=== PATIENT | female | born 1945 | race Caucasian/White ===

== ENCOUNTER 2023-07-31 10:04 | Outpatient (AMB) | payer BC, SELFPAY ==
[2023-07-31 10:26] VITALS: BP 118/64; PULSE 92; O2SAT 96; BMI 33.1
--- NOTE | 2023-07-31 10:26 | A.OFFVIS_ITS ---
Intake Vital Signs 07/31/23 10:26 Height 5 ft 5 in Weight 199 lb BMI 33.1 BP 118/64 Blood Pressure Location Rt brachial Position Sitting Pulse 92 Pulse Source Pulse Oximeter Pulse Oximetry (%) 96 Oxygen Delivery Method Room Air Intake Visit Reasons: mild intermittent asthma Online Merchandising Specialist Required: No Adzing And Boring Machine Operator: Adzing And Boring Machine Operator offered & declined Accompanied by: Spouse Allergies codeine Allergy (Severe, Verified 07/31/23 10:33) hives latex Allergy (Severe, Uncoded 07/31/23 10:33) hives Poultry Allergy (Severe, Uncoded 07/31/23 10:33) hives Medication List - Last Reconciled 07/31/23 by Yessica Oliveros LPN albuterol sulfate 90 mcg/actuation 2 puffs inhalation Q4-6H PRN amlodipine 2.5 mg PO DAILY atorvastatin 10 mg PO DAILY famotidine 40 mg PO DAILY PRN melatonin 10 mg PO BEDTIME PRN meloxicam 15 mg PO DAILY PRN metoprolol succinate ER 25 mg PO QDAY omeprazole 20 mg PO DAILY PRN zinc 22 mg PO DAILY HPI mild intermittent asthma HPI Details Cesia is a pleasant 77 year old female, former smoker with approximate 10 pack year history, quit 50+ years ago with underlying asthma, tachycardia maintained on metoprolol, under the care of cardiology, GERD, and history of CVA maintained on ASA. She also reports GARETH on CPAP, using a fullface mask and receives supplies through Sleep medicine services in [place]. At baseline, she is poorly controlled on albuterol neb/MDI but reports occurrences of thrush and has not used any other respiratory medication. She reports dyspnea with moderate exertion and intermittent coughing spells with clear sputum as well as chest tightness and wheezing. She notes the cough is worse at night. She also states a history of asbestos exposure with abnormal CXR. She denies any further imaging. She did have a PFT and a methacholine challenge confirming asthma in the past. She believes this was performed at [facility]. She reports son with asthma otherwise no other pertinent family history. [facility] Social History (Updated 07/31/23 @ 10:34 by Yessica Oliveros LPN) Patient Tobacco Use Status: Former Tobacco user Tobacco use type: Cigarette Cigarette Packs Per Day: 1 Years Smoked: 7 Review of Systems Const Denies chills, Denies excessive sweating, Denies fever(s), Denies headache(s) and Denies night sweats Eyes Denies dry eyes, Denies irritation and Denies itchy eyes ENT Reports Normal hearing present, Denies headache(s), Denies nasal congestion, Denies nasal discharge, Denies post nasal drip and Denies sore throat Card Denies chest pain, Denies chest pain at rest, Denies chest pain with activity, Denies claudication, Denies leg edema, Denies orthopnea and Denies paroxysmal nocturnal dyspnea Resp Denies chest congestion, Denies excessive phlegm production, Denies pain on inspiration, Denies pain with cough and Denies stridor Musc Denies myalgias Neuro Reports Normal hearing present and Denies headache(s) Endo Denies excessive sweating Juan Manuel/Lymph Denies lymphadenopathy Aller/Immun Denies itchy eyes and Denies seasonal rhinorrhea Physical Exam Vital Signs: Last Vital Signs Pulse 92 07/31/23 10:26 BP 118/64 07/31/23 10:26 Pulse Ox 96 07/31/23 10:26 Oxygen Delivery Method Room Air 07/31/23 10:26 BMI result Body Mass Index 33.1 Const General: cooperative, healthy appearing, comfortable, no acute distress, well developed and alert Orientation/consciousness: patient oriented x3 Limitations: no limitations HEENT Head: Yes normal to inspection, Yes normocephalic and Yes atraumatic Ears: hearing grossly normal bilaterally and external ears normal Eyes General: appearance normal, both eyes and all related structures Eyelids: Yes eyelids normal Sclerae: sclerae normal EOM: EOMs intact bilaterally Neck Neck: Yes normal visual inspection and Yes no lymphadenopathy Lymphatic: no lymphadenopathy noted Chest Chest palpation & inspection: normal inspection of the chest Resp Effort & Inspection: normal respiratory effort, able to speak in complete sentences, no audible wheezes, no cough, no stridor, not tachypneic, no tripod positioning and no use of accessory muscles Auscultation: clear to auscultation bilaterally Cardio Jugular venous distension: no JVD Rate: regular rate Rhythm: regular rhythm Skin Other: warm, dry General skin exam: no rashes or lesions noted Neuro General: patient oriented x3 Cranial nerves: Yes Normal hearing present Cognition (Neuro): normal cognition Gait exam (Neuro): Normal gait present Extrem General: Yes normal to inspection, Yes capillary refill normal, Yes no clubbing, cyanosis or edema and Yes no pedal edema Psych Appearance: grossly normal and well kempt Speech and movement: Normal speech and movement present and Clear speech present Affect: normal affect Attitude: cooperative Thought process: Normal thought process present Thought content: Normal thought content present Insight: Good insight present (Psych) Judgement: Good judgement present (Psych) Assessment & Plan Assessment & Plan (1) Asthma: Code(s): J45.909 - Unspecified asthma, uncomplicated (2) Dyspnea on exertion: Code(s): R06.09 - Other forms of dyspnea (3) Asbestos exposure: Code(s): Z77.090 - Contact with and (suspected) exposure to asbestos (4) Obstructive sleep apnea: Code(s): G47.33 - Obstructive sleep apnea (adult) (pediatric) Plan Cesia's symptoms are likely related to poorly controlled asthma as well as difficulties controlling GERD. Will obtain prior PFT and if quite some time ago, will obtain updated PFT. She also noted prior asbestos exposure with abnormal CXR. Will send for chest CT to evaluate. We briefly discussed trialing an ICS/LABA but she would like to hold off at this time. Her referral did note hyperglycemia, advised to discuss with PCP, as this may be an underlying factor causing prior episodes of thrush. Will also obtain prior cardiology records and reach out to [facility] in [place] for compliance report. All questions were answered and patient is in agreement of plan. Will follow up in 6-8 weeks to review results. Orders: Orders CT chest wo IV con Today R05.9 - Cough, unspecified, Z77.090 - Contact with and (suspected) exposure to asbestos Coding Level of Care Code New Pt Level 4 (77425) Diagnoses Asthma J45.909 Dyspnea on exertion R06.09 Asbestos exposure Z77.090 Obstructive sleep apnea G47.33
== END 2023-07-31 11:33 | disposition home or self-care (01) ==
PROVIDERS: PCP Nurse Practitioner Adult Health; Visit Provider Nurse Practitioner Family
DX: J45.909 Unspecified asthma, uncomplicated (principal); R06.09 Other forms of dyspnea; Z77.090 Contact with and (suspected) exposure to asbestos; G47.33 Obstructive sleep apnea (adult) (pediatric)
CPT/HCPCS: 99204

== ENCOUNTER → 2023-07-31 10:04 | Outpatient (BNVA) | payer BC, SELFPAY | PROVIDERS: PCP Nurse Practitioner Adult Health; Visit Provider Nurse Practitioner Family ==

== ENCOUNTER 2023-09-13 08:34 | Outpatient (REF) | payer BC, SELFPAY ==
--- NOTE | ~2023-09-13 | CT_ITS ---
EXAMINATION: CT CHEST WITHOUT CONTRAST CLINICAL INFORMATION: History of asbestos exposure. COMPARISON: Chest radiograph from 11/16/2022 TECHNIQUE: Multidetector volumetric CT imaging of the chest was done. Axial MIP volume rendering provided. Sagittal and coronal reformatted images were obtained. This CT examination was performed using dose optimization techniques as appropriate, variously including the following: *Automated exposure control *Adjustment of mA and/or kV according to patient size (this includes techniques or standardized protocols for targeted exams where dose is matched to indication/reason for exam; i.e. extremities or head) *Use of iterative reconstruction technique DLP: 155 mGy-cm FINDINGS: LUNGS AND PLEURA: Trachea and central airways are widely patent and normal in caliber. Lungs are well expanded. There are a few linear opacities of atelectasis or scarring in each lower lobe, middle lobe and lingula. No pulmonary mass, consolidation or pleural effusion. There are no pleural plaques. Also, no evidence of curvilinear subpleural bands or peribronchial reticulonodular opacities. Several small bilateral pulmonary nodules are present, all measuring less than 0.4 cm average diameter, including those seen in the inferior lingula (image 128/189), lateral left lower lobe along the major fissure (image 137), and posterolateral left lower lobe (image 143/189), and there are a few small pleural-based nodules of the right lower lobe. Based on Fleischner Society guidelines, if patient is low risk, no routine follow-up is recommended. If patient is high risk, chest CT follow up at 12 months is optional; if stable at 12 months, then no further follow up. CARDIOVASCULAR: The heart size is normal. No pericardial effusion. Pulmonary arteries are normal in caliber. There is atherosclerotic calcification of the thoracic aorta without aneurysm. CORONARY ARTERY CALCIFICATION: There is mild calcification of coronary arteries. MEDIASTINUM AND LOWER NECK: No mediastinal mass. The esophagus and thyroid gland are unremarkable. LYMPHATICS: No pathologic sized lymph nodes. UPPER ABDOMEN: 1 cm simple cyst in the lateral aspect of the right lobe of the liver. Multiple diverticula of the partially visualized colon. SKELETAL AND CHEST WALL: No chest wall mass. Mild hyperkyphosis of the degenerated thoracic spine. No acute or suspicious osseous abnormality. 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 CT/CT chest wo IV con IMPRESSION: * No findings to suggest prior asbestos exposure. There are no pleural plaques. No evidence of asbestosis. * Several small bilateral pulmonary and pleural-based nodules are present. * There is mild atherosclerotic calcification of coronary arteries.
== END 2023-09-13 08:35 | disposition home or self-care (01) ==
LOC: HO.CT 08:34
PROVIDERS: PCP Internal Medicine; Visit Provider Nurse Practitioner Family
DX: R05.9 Cough, unspecified (principal); Z77.090 Contact with and (suspected) exposure to asbestos
CPT/HCPCS: 71250

== ENCOUNTER 2023-09-18 09:27 | Outpatient (AMB) | payer BC, SELFPAY ==
--- NOTE | 2023-09-18 09:43 | MHC.OFFVIS ---
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 Accompanied by: Spouse Allergies codeine Allergy (Severe, Verified 09/18/23 09:45) hives latex Allergy (Severe, Uncoded 09/18/23 09:45) hives Poultry Allergy (Severe, Uncoded 09/18/23 09:45) hives Medication List - Last Reconciled 09/18/23 by Yessica Oliveros LPN albuterol sulfate 90 mcg/actuation 2 puffs inhalation Q4-6H PRN amlodipine 5 mg PO DAILY atorvastatin 10 mg PO DAILY famotidine 40 mg PO DAILY PRN melatonin 10 mg PO BEDTIME PRN meloxicam 15 mg PO DAILY PRN metoprolol succinate ER 25 mg PO QDAY omeprazole 20 mg PO DAILY PRN zinc 22 mg PO DAILY HPI mild intermittent asthma : 7 week f/u HPI Details Cesia is a pleasant 77 year old female, former smoker with approximate 10 pack year history, quit 50+ years ago with underlying asthma, tachycardia maintained on metoprolol, under the care of cardiology, GERD, and history of CVA maintained on ASA. She continues to report dyspnea with moderate exertion and intermittent cough with clear sputum. She denies wheezing. She is reluctant to use any daily inhaler as she feels her dyspnea is minimal. She reports PND, using flonase with suboptimal response. She has been compliant with CPAP therapy and is questioning if she still needs to use, as she was without for three weeks while on vacation and felt her symptoms were minimal. Today presents to review CT results. [facility] Social History (Updated 09/18/23 @ 09:46 by Yessica Oliveros LPN) Patient Tobacco Use Status: Former Tobacco user Tobacco use type: Cigarette Cigarette Packs Per Day: 1 Years Smoked: 7 Smoked in Last 30 Days: No Review of Systems Const Denies chills, Denies excessive sweating, Denies fever(s), Denies headache(s) and Denies night sweats Eyes Denies dry eyes, Denies irritation and Denies itchy eyes ENT Reports Normal hearing present, Denies headache(s), Denies nasal congestion, Denies nasal discharge, Reports post nasal drip and Denies sore throat Card Denies chest pain, Denies chest pain at rest, Denies chest pain with activity, Denies claudication, Denies leg edema, Denies orthopnea and Denies paroxysmal nocturnal dyspnea Resp Denies chest congestion, Denies excessive phlegm production, Denies pain on inspiration, Denies pain with cough and Denies stridor Musc Denies myalgias Neuro Reports Normal hearing present and Denies headache(s) Endo Denies excessive sweating Juan Manuel/Lymph Denies lymphadenopathy Aller/Immun Denies itchy eyes Physical Exam Vital Signs: Last Vital Signs Pulse 70 09/18/23 09:44 BP 134/70 09/18/23 09:44 Pulse Ox 96 09/18/23 09:44 Oxygen Delivery Method Room Air 09/18/23 09:44 BMI result Body Mass Index 33.1 Const General: cooperative, healthy appearing, comfortable, no acute distress, well developed and alert Orientation/consciousness: patient oriented x3 Limitations: no limitations HEENT Head: Yes normal to inspection, Yes normocephalic and Yes atraumatic Ears: hearing grossly normal bilaterally and external ears normal Eyes General: appearance normal, both eyes and all related structures Eyelids: Yes eyelids normal Sclerae: sclerae normal EOM: EOMs intact bilaterally Neck Neck: Yes normal visual inspection and Yes no lymphadenopathy Lymphatic: no lymphadenopathy noted Chest Chest palpation & inspection: normal inspection of the chest Resp Effort & Inspection: normal respiratory effort, able to speak in complete sentences, no audible wheezes, no cough, no stridor, not tachypneic, no tripod positioning and no use of accessory muscles Auscultation: clear to auscultation bilaterally Cardio Jugular venous distension: no JVD Rate: regular rate Rhythm: regular rhythm Skin Other: warm, dry General skin exam: no rashes or lesions noted Neuro General: patient oriented x3 Cranial nerves: Yes Normal hearing present Cognition (Neuro): normal cognition Gait exam (Neuro): Normal gait present Extrem General: Yes normal to inspection, Yes capillary refill normal, Yes no clubbing, cyanosis or edema and Yes no pedal edema Psych Appearance: grossly normal and well kempt Speech and movement: Normal speech and movement present and Clear speech present Affect: normal affect Attitude: cooperative Thought process: Normal thought process present Thought content: Normal thought content present Insight: Good insight present (Psych) Judgement: Good judgement present (Psych) Results Reviewed Results Reviewed: [address] [address] [address] Scan Report Signed Patient: Cesia Martinez MR#: [id number] : 1945 Acct:[id number] Age/Sex: 77 / F ADM Date: 09/13/23 Loc: HO.CT Attending Dr: Amber Guillaume NP Ordering Physician: Amber Guillaume NP Date of Service: 09/13/23 Procedure(s): CT chest wo IV con Accession Number(s): [id number] cc: DIDIER MARIE MD; Amber Guillaume NP~ EXAMINATION: CT CHEST WITHOUT CONTRAST CLINICAL INFORMATION: History of asbestos exposure. COMPARISON: Chest radiograph from 11/16/2022 TECHNIQUE: Multidetector volumetric CT imaging of the chest was done. Axial MIP volume rendering provided. Sagittal and coronal reformatted images were obtained. This CT examination was performed using dose optimization techniques as appropriate, variously including the following: *Automated exposure control *Adjustment of mA and/or kV according to patient size (this includes techniques or standardized protocols for targeted exams where dose is matched to indication/reason for exam; i.e. extremities or head) *Use of iterative reconstruction technique DLP: 155 mGy-cm FINDINGS: LUNGS AND PLEURA: Trachea and central airways are widely patent and normal in caliber. Lungs are well expanded. There are a few linear opacities of atelectasis or scarring in each lower lobe, middle lobe and lingula. No pulmonary mass, consolidation or pleural effusion. There are no pleural plaques. Also, no evidence of curvilinear subpleural bands or peribronchial reticulonodular opacities. Several small bilateral pulmonary nodules are present, all measuring less than 0.4 cm average diameter, including those seen in the inferior lingula (image 128/189), lateral left lower lobe along the major fissure (image 137), and posterolateral left lower lobe (image 143/189), and there are a few small pleural-based nodules of the right lower lobe. Based on Fleischner Society guidelines, if patient is low risk, no routine follow-up is recommended. If patient is high risk, chest CT follow up at 12 months is optional; if stable at 12 months, then no further follow up. CARDIOVASCULAR: The heart size is normal. No pericardial effusion. Pulmonary arteries are normal in caliber. There is atherosclerotic calcification of the thoracic aorta without aneurysm. CORONARY ARTERY CALCIFICATION: There is mild calcification of coronary arteries. MEDIASTINUM AND LOWER NECK: No mediastinal mass. The esophagus and thyroid gland are unremarkable. LYMPHATICS: No pathologic sized lymph nodes. UPPER ABDOMEN: 1 cm simple cyst in the lateral aspect of the right lobe of the liver. Multiple diverticula of the partially visualized colon. SKELETAL AND CHEST WALL: No chest wall mass. Mild hyperkyphosis of the degenerated thoracic spine. No acute or suspicious osseous abnormality. 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 CT/CT chest wo IV con IMPRESSION: * No findings to suggest prior asbestos exposure. There are no pleural plaques. No evidence of asbestosis. * Several small bilateral pulmonary and pleural-based nodules are present. * There is mild atherosclerotic calcification of coronary arteries. Dictated By: Don Rm MD Signed By: <Electronically signed by Don Rm MD in OV> 09/16/23 2379 Assessment & Plan Assessment & Plan (1) Asthma: Code(s): J45.909 - Unspecified asthma, uncomplicated (2) Dyspnea on exertion: Code(s): R06.09 - Other forms of dyspnea (3) Obstructive sleep apnea: Code(s): G47.33 - Obstructive sleep apnea (adult) (pediatric) (4) Multiple pulmonary nodules: Code(s): R91.8 - Other nonspecific abnormal finding of lung field Plan Reviewed chest CT which revealed pulmonary nodules < 4 mm. Will repeat in one year to assess stability. Discussed trialing an inhaler for dyspnea and intermittent cough but patient would like to hold off until symptoms are more persistent. Will trial ipratropium nasal spray for PND. Patient was diagnosed with GARETH and has been on CPAP therapy. She is questioning if it is still necessary. Will send for updated home sleep study to evaluate GARETH severity. All questions were answered and patient is in agreement of plan. Will follow up after sleep study to review results. Orders: Orders RT home sleep study Today G47.33 - Obstructive sleep apnea (adult) (pediatric) CT chest wo IV con 11 Months R91.8 - Other nonspecific abnormal finding of lung field Medications: New albuterol sulfate 90 mcg/actuation 2 puffs inhalation Q4-6H PRN 8.5 grams 2RF shortness of breath or wheezing ipratropium bromide administer into each nostril 2 sprays intranasal BID 30 mL 2RF Coding Level of Care Code Est Pt Level 4 (05918) Diagnoses Asthma J45.909 Dyspnea on exertion R06.09 Obstructive sleep apnea G47.33 Multiple pulmonary nodules R91.8
[2023-09-18 09:44] VITALS: BP 134/70; PULSE 70; O2SAT 96; BMI 33.1
== END 2023-09-18 10:36 | disposition home or self-care (01) ==
PROVIDERS: PCP Nurse Practitioner Adult Health; Visit Provider Nurse Practitioner Family
DX: J45.909 Unspecified asthma, uncomplicated (principal); R06.09 Other forms of dyspnea; G47.33 Obstructive sleep apnea (adult) (pediatric); R91.8 Other nonspecific abnormal finding of lung field
CPT/HCPCS: 99214

== ENCOUNTER → 2023-09-18 09:27 | Outpatient (BNVA) | payer BC, SELFPAY | PROVIDERS: PCP Nurse Practitioner Adult Health; Visit Provider Nurse Practitioner Family ==

== ENCOUNTER 2024-02-04 13:22 | Outpatient (AMB) | payer BC, SELFPAY ==
--- NOTE | 2024-02-04 13:35 | A.OFFVIS_ITS ---
Intake Visit Reasons: mild intermittent asthma Allergies codeine Allergy (Severe, Verified 09/18/23 09:45) hives latex Allergy (Severe, Uncoded 09/18/23 09:45) hives Poultry Allergy (Severe, Uncoded 09/18/23 09:45) hives HPI HPI mild intermittent asthma: Details: Cesia is a pleasant 78 year old female, former smoker with approximate 10 pack year history, quit 50+ years ago with underlying asthma, tachycardia maintained on metoprolol, under the care of cardiology, GERD, and history of CVA maintained on ASA. Today's visit was conducted via telephone to discuss CPAP therapy. She reports being symptomatic despite using CPAP therapy with persistent daytime fatigue, loud snoring and witnessed apneas. She was sent for an updated home sleep study which was denied by insurance, will attempt to resend. Of note, she also reports poorly controlled GERD symptoms, will be following up with GI to discuss. [facility] Social History (Updated 09/18/23 @ 09:46 by Yessica Oliveros LPN) Patient Tobacco Use Status: Former Tobacco user Tobacco use type: Cigarette Cigarette Packs Per Day: 1 Years Smoked: 7 Review of Systems Const Denies chills, Denies excessive sweating, Denies fever(s), Denies headache(s) and Denies night sweats Eyes Denies dry eyes, Denies irritation and Denies itchy eyes ENT Reports Normal hearing present, Denies headache(s), Denies nasal congestion, Denies nasal discharge, Reports post nasal drip and Denies sore throat Card Denies chest pain, Denies chest pain at rest, Denies chest pain with activity, Denies claudication, Denies leg edema, Denies orthopnea and Denies paroxysmal nocturnal dyspnea Resp Denies chest congestion, Denies excessive phlegm production, Denies pain on inspiration, Denies pain with cough and Denies stridor Musc Denies myalgias Neuro Reports Normal hearing present and Denies headache(s) Endo Denies excessive sweating Juan Manuel/Lymph Denies lymphadenopathy Aller/Immun Denies itchy eyes Physical Exam Const General: cooperative and no acute distress Orientation/consciousness: patient oriented x3 Resp Effort & Inspection: normal respiratory effort, able to speak in complete sentences and no audible wheezes Neuro General: patient oriented x3 Cranial nerves: Yes Normal hearing present Psych Mental Status: mental status grossly normal Speech and movement: Clear speech present Attitude: cooperative Thought process: Normal thought process present Thought content: Normal thought content present Insight: Good insight present (Psych) Judgement: Good judgement present (Psych) Telehealth Telehealth Location of provider rendering services: practice address Location of patient: address on file Patient Identification confirmed using: Name, : Yes Telehealth method: voice only Patient verbally consented to treatment: Yes Patient verbally consented to billing insurance company: Yes Patient informed of any privacy concerns related to visit: Yes Assessment & Plan Assessment & Plan (1) Asthma: Code(s): J45.909 - Unspecified asthma, uncomplicated Category: Medical (2) Dyspnea on exertion: Code(s): R06.09 - Other forms of dyspnea Category: Medical (3) Obstructive sleep apnea: Code(s): G47.33 - Obstructive sleep apnea (adult) (pediatric) Category: Medical (4) Multiple pulmonary nodules: Code(s): R91.8 - Other nonspecific abnormal finding of lung field Category: Medical (5) Witnessed episode of apnea: Code(s): R06.81 - Apnea, not elsewhere classified Category: Medical (6) Daytime somnolence: Code(s): R40.0 - Somnolence Category: Medical Plan Patient states she is still symptomatic with daytime fatigue and witnessed apneas despite CPAP therapy. Will send for home sleep study with likely an in lab titration study to follow. Recommended patient follow up with GI to discuss PPI regimen. At this time she reports asthma has been controlled. Advised to continue current regimen.All questions were answered and patient is in agreement of plan. Will follow up after sleep study to review results. Coding Level of Care Code Tele Est Pt Level 3 (99733) Diagnoses Asthma J45.909 Dyspnea on exertion R06.09 Obstructive sleep apnea G47.33 Multiple pulmonary nodules R91.8 Witnessed episode of apnea R06.81 Daytime somnolence R40.0 Time Spent (min) 12
== END 2024-02-04 13:34 | disposition home or self-care (01) ==
LOC: HO.HPSW 13:22
PROVIDERS: PCP Nurse Practitioner Adult Health; Visit Provider Nurse Practitioner Family
DX: J45.909 Unspecified asthma, uncomplicated (principal); R06.09 Other forms of dyspnea; G47.33 Obstructive sleep apnea (adult) (pediatric); R91.8 Other nonspecific abnormal finding of lung field; R06.81 Apnea, not elsewhere classified; R40.0 Somnolence
CPT/HCPCS: 99442

== ENCOUNTER → 2024-02-04 13:22 | Outpatient (BNVA) | payer BC, SELFPAY | PROVIDERS: PCP Nurse Practitioner Adult Health; Visit Provider Nurse Practitioner Family ==

== ENCOUNTER → 2024-04-30 09:18 | Outpatient (REF) | payer BC, SELFPAY | LOC: HO.SL 09:18 | PROVIDERS: PCP Nurse Practitioner Adult Health; Visit Provider Nurse Practitioner Family | DX: G47.33 Obstructive sleep apnea (adult) (pediatric) (principal); R40.0 Somnolence | CPT/HCPCS: 95806 ==

== ENCOUNTER → 2024-04-30 09:50 | Outpatient (BNV) | payer BC, SELFPAY | PROVIDERS: PCP Nurse Practitioner Adult Health; Visit Provider Internal Medicine | DX: R40.0 Somnolence (principal); R06.83 Snoring | CPT/HCPCS: 95806 ==

== ENCOUNTER 2024-05-20 09:58 | Outpatient (AMB) | payer BC, SELFPAY ==
--- NOTE | 2024-05-20 10:06 | MHC.OFFVIS ---
Vital Signs 05/20/24 10:07 Height 5 ft 5 in Weight 197 lb 2 oz BMI 32.8 BP 142/68 H Blood Pressure Location Rt brachial Position Sitting Pulse 76 Pulse Source Pulse Oximeter Pulse Oximetry (%) 96 Oxygen Delivery Method Room Air Intake Visit Reasons: Review sleep study results Allergies codeine Allergy (Severe, Verified 05/20/24 10:11) hives latex Allergy (Severe, Uncoded 05/20/24 10:11) hives Poultry Allergy (Severe, Uncoded 05/20/24 10:11) hives HPI HPI Review sleep study results: Details: Cesia is a pleasant 78 year old female, former smoker with approximate 10 pack year history, quit 50+ years ago with underlying asthma, tachycardia maintained on metoprolol, under the care of cardiology, GERD, and history of CVA maintained on ASA. At the last visit, she reported being symptomatic despite using CPAP therapy with persistent daytime fatigue, loud snoring and witnessed apneas. Today she presents to review home sleep study results. She reports respiratory symptoms have been well controlled on current regimen. [facility] Social History Patient Tobacco Use Status: Former Tobacco user Tobacco use type: Cigarette Cigarette Packs Per Day: 1 Years Smoked: 7 Review of Systems Const Denies chills, Denies excessive sweating, Denies fever(s), Denies headache(s) and Denies night sweats Eyes Denies dry eyes, Denies irritation and Denies itchy eyes ENT Reports Normal hearing present, Denies headache(s), Denies nasal congestion, Denies nasal discharge, Reports post nasal drip and Denies sore throat Card Denies chest pain, Denies chest pain at rest, Denies chest pain with activity, Denies claudication, Denies leg edema, Denies orthopnea and Denies paroxysmal nocturnal dyspnea Resp Denies chest congestion, Denies excessive phlegm production, Denies pain on inspiration, Denies pain with cough and Denies stridor Musc Denies myalgias Neuro Reports Normal hearing present and Denies headache(s) Endo Denies excessive sweating Juan Manuel/Lymph Denies lymphadenopathy Aller/Immun Denies itchy eyes Physical Exam Vital Signs: Last Vital Signs Pulse 76 05/20/24 10:07 BP 142/68 H 05/20/24 10:07 Pulse Ox 96 05/20/24 10:07 Oxygen Delivery Method Room Air 05/20/24 10:07 BMI result Body Mass Index 32.8 Const General: cooperative and no acute distress Orientation/consciousness: patient oriented x3 Resp Effort & Inspection: normal respiratory effort, able to speak in complete sentences and no audible wheezes Neuro General: patient oriented x3 Cranial nerves: Yes Normal hearing present Psych Mental Status: mental status grossly normal Speech and movement: Clear speech present Attitude: cooperative Thought process: Normal thought process present Thought content: Normal thought content present Insight: Good insight present (Psych) Judgement: Good judgement present (Psych) Assessment & Plan Assessment & Plan (1) Asthma: Code(s): J45.909 - Unspecified asthma, uncomplicated Category: Medical (2) Dyspnea on exertion: Code(s): R06.09 - Other forms of dyspnea Category: Medical (3) Obstructive sleep apnea: Code(s): G47.33 - Obstructive sleep apnea (adult) (pediatric) Category: Medical (4) Multiple pulmonary nodules: Code(s): R91.8 - Other nonspecific abnormal finding of lung field Category: Medical (5) Witnessed episode of apnea: Code(s): R06.81 - Apnea, not elsewhere classified Category: Medical (6) Daytime somnolence: Code(s): R40.0 - Somnolence Category: Medical Plan Reviewed home sleep study which was negative. Discussed with patient that if she is still symptomatic then we can send for in lab PSG. She would like to hold off at this time. All questions were answered and patient is in agreement of plan. Will follow up in three months or sooner if needed. Coding Level of Care Code Est Pt Level 3 (45620) Diagnoses Asthma J45.909 Dyspnea on exertion R06.09 Obstructive sleep apnea G47.33 Multiple pulmonary nodules R91.8 Witnessed episode of apnea R06.81 Daytime somnolence R40.0
[2024-05-20 10:07] VITALS: BP 142/68; PULSE 76; O2SAT 96; BMI 32.8
== END 2024-05-20 10:36 | disposition home or self-care (01) ==
PROVIDERS: PCP Nurse Practitioner Adult Health; Visit Provider Nurse Practitioner Family
DX: J45.909 Unspecified asthma, uncomplicated (principal); R06.09 Other forms of dyspnea; G47.33 Obstructive sleep apnea (adult) (pediatric); R91.8 Other nonspecific abnormal finding of lung field; R06.81 Apnea, not elsewhere classified; R40.0 Somnolence
CPT/HCPCS: 99213

== ENCOUNTER → 2024-05-20 09:58 | Outpatient (BNVA) | payer BC, SELFPAY | PROVIDERS: PCP Nurse Practitioner Adult Health; Visit Provider Nurse Practitioner Family ==

== ENCOUNTER 2024-08-24 10:42 | Outpatient (REF) | payer BC, SELFPAY | END 2024-08-24 10:43 | disposition home or self-care (01) | LOC: HO.CT 10:42 | PROVIDERS: PCP Nurse Practitioner Adult Health; Visit Provider Nurse Practitioner Family | DX: R91.8 Other nonspecific abnormal finding of lung field (principal) | CPT/HCPCS: 71250 ==

== ENCOUNTER → 2024-08-24 10:44 | Outpatient (BNV) | payer BC, SELFPAY | PROVIDERS: PCP Nurse Practitioner Adult Health; Visit Provider Radiology Diagnostic Radiology | DX: J98.11 Atelectasis (principal); R91.1 Solitary pulmonary nodule | CPT/HCPCS: 71250 ==

== ENCOUNTER 2024-10-28 15:02 | Outpatient (AMB) | payer BC, SELFPAY ==
--- NOTE | 2024-10-28 13:32 | MHC.OFFVIS ---
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 Furniture Assembly Supervisor: Furniture Assembly Supervisor offered & declined Accompanied by: Spouse Allergies codeine Allergy (Severe, Verified 10/28/24 15:19) hives latex Allergy (Severe, Uncoded 10/28/24 15:19) hives Poultry Allergy (Severe, Uncoded 10/28/24 15:19) hives Medication List - Last Reconciled 10/28/24 by Yessica Oliveros, ITZ albuterol sulfate 90 mcg/actuation 2 puffs inhalation Q4-6H PRN albuterol sulfate 90 mcg/actuation 2 puffs inhalation Q4-6H PRN amlodipine 5 mg PO DAILY apixaban (Eliquis) 5 mg PO BID atorvastatin 40 mg PO DAILY coenzyme Q10 (Co Q-10) 200 mg PO DAILY famotidine 40 mg PO DAILY PRN ipratropium bromide 2 sprays intranasal BID melatonin 10 mg PO BEDTIME PRN meloxicam 15 mg PO DAILY PRN metoprolol succinate ER 25 mg PO QDAY omeprazole 20 mg PO DAILY PRN zinc 22 mg PO DAILY HPI HPI gareth: Details: Cesia is a pleasant 79 year old female, former smoker with approximate 10 pack year history, quit 50+ years ago with underlying asthma, tachycardia maintained on metoprolol, under the care of cardiology, GERD, and history of CVA maintained on ASA. At the last visit she was sent for home sleep study which revealed <5 apneic events per hour with no significant nocturnal hypoxemia. She has since discontinued CPAP therapy and denies symptoms suggestive of GARETH. Previously we discussed if symptoms recur, will consider in lab sleep study to ensure accurate results. She reports respiratory symptoms have been moderatlye controlled, however using albuterol MDI infrequently as she has developed thrush in the past. 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 She also notes zhanna COVID in August, recovering at home with no treatment. Today she presents to review chest CT results. Prior revealed several small bilateral pulmonary and pleural-based nodules from 09/[address] [facility] Social History Patient Tobacco Use Status: Former Tobacco user Tobacco use type: Cigarette Cigarette Packs Per Day: 1 Years Smoked: 7 Review of Systems Const Denies chills, Denies excessive sweating, Denies fever(s), Denies headache(s) and Denies night sweats Eyes Denies dry eyes, Denies irritation and Denies itchy eyes ENT Reports Normal hearing present, Denies headache(s), Denies nasal congestion, Denies nasal discharge, Reports post nasal drip and Denies sore throat Card Denies chest pain, Denies chest pain at rest, Denies chest pain with activity, Denies claudication, Denies leg edema, Reports dyspnea on exertion, Denies orthopnea and Denies paroxysmal nocturnal dyspnea Resp Denies chest congestion, Reports cough, Denies excessive phlegm production, Denies pain on inspiration, Denies pain with cough, Reports dyspnea on exertion, Denies stridor and Denies wheezing Musc Denies myalgias Neuro Reports Normal hearing present and Denies headache(s) Endo Denies excessive sweating Juan Manuel/Lymph Denies lymphadenopathy Aller/Immun Denies itchy eyes and Denies wheezing Physical Exam Vital Signs: Last Vital Signs Pulse 84 10/28/24 15:14 BP 130/70 10/28/24 15:14 Pulse Ox 96 10/28/24 15:14 Oxygen Delivery Method Room Air 10/28/24 15:14 BMI result Body Mass Index 32.8 Const General: cooperative, healthy appearing, comfortable, no acute distress, well developed and alert Nutritional Appearance: obese Orientation/consciousness: patient oriented x3 Limitations: no limitations HEENT Head: Yes normal to inspection, Yes normocephalic and Yes atraumatic Ears: hearing grossly normal bilaterally and external ears normal Eyes General: appearance normal, both eyes and all related structures Eyelids: Yes eyelids normal Sclerae: sclerae normal EOM: EOMs intact bilaterally Neck Neck: Yes normal visual inspection and Yes no lymphadenopathy Lymphatic: no lymphadenopathy noted Chest Chest palpation & inspection: normal inspection of the chest Resp Effort & Inspection: normal respiratory effort, able to speak in complete sentences, no audible wheezes, no cough, no stridor, not tachypneic, no tripod positioning and no use of accessory muscles Auscultation: clear to auscultation bilaterally Cardio Jugular venous distension: no JVD Rate: regular rate Rhythm: regular rhythm Skin Other: warm, dry General skin exam: no rashes or lesions noted Neuro General: patient oriented x3 Cranial nerves: Yes Normal hearing present Cognition (Neuro): normal cognition Gait exam (Neuro): Normal gait present Extrem General: Yes normal to inspection, Yes capillary refill normal, Yes no clubbing, cyanosis or edema and Yes no pedal edema Psych Appearance: grossly normal and well kempt Speech and movement: Normal speech and movement present and Clear speech present Affect: normal affect Attitude: cooperative Thought process: Normal thought process present Thought content: Normal thought content present Insight: Good insight present (Psych) Judgement: Good judgement present (Psych) Results Reviewed Results Reviewed: [address] [address] [address] Scan Report Signed Patient: Cesia Martinez MR#: [id number] : 1945 Acct:[id number] Age/Sex: 78 / F ADM Date: 08/24/24 Loc: .CT Attending Dr: Amber Guillaume NP Ordering Physician: Amber Guillaume NP Date of Service: 08/24/24 Procedure(s): CT chest wo IV con Accession Number(s): [id number] cc: Kajal Durán NP; Amber Guillaume NP~ Report Number: [id number]: Total DLP = 161.00 mGy-cm EXAMINATION: CT CHEST WITHOUT CONTRAST CLINICAL INFORMATION: History of asbestosis exposure. Follow-up bilateral upper nodules. COMPARISON: CT chest 09/13/2023. TECHNIQUE: Multidetector volumetric CT imaging of the chest was done. Axial MIP volume rendering provided. Sagittal and coronal reformatted images were obtained. This CT examination was performed using dose optimization techniques as appropriate, variously including the following: *Automated exposure control *Adjustment of mA and/or kV according to patient size (this includes techniques or standardized protocols for targeted exams where dose is matched to indication/reason for exam; i.e. extremities or head) *Use of iterative reconstruction technique FINDINGS: ENTERTAINMENT MANAGER: The lungs are hyperinflated but clear.. LUNGS: There are 2-3 mm pulmonary nodules peripherally based in the lingula on axial image 412/5, left lower lobe adjacent to major fissure axial image 437/5, left lower lobe axial image 434/5. There is platelike atelectasis in right lung base, right middle lobe and lingula. MEDIASTINUM: Thyroid lobes are symmetrical and normal. The central trachea and the bronchi are widely patent. Heart size and the great vessels are normal caliber. There is mild coronary artery calcifications present. PLEURA: There is no pleural effusion. No pleural mass or thickening. AXILLA: No lymphadenopathy. UPPER ABDOMEN: Small hypodensity right hepatic lobe, stable Visualized liver, spleen, pancreas and bilateral adrenal glands are unremarkable. OSSEOUS STRUCTURES: There is exaggerated thoracic kyphosis. There is mild ventral spondylosis mid and lower dorsal spine. No aggressive lytic or sclerotic process seen. CT/CT chest wo IV con IMPRESSION: Hyperinflated lungs with atelectasis. Subcentimeter nodules as described above are stable. No new pulmonary nodules. No pleural thickening or pleural plaques. Fleischner guidelines were followed. Electronically signed by: Dennis Beaulieu MD 09/30/2024 09:20 AM EST Dictated By: Dennis Beaulieu MD Signed By: <Electronically signed by Dennis Beaulieu MD in OV> 09/30/24 0920 DD/ 1100 TD/TT: 08/24/24 1110 Automotive Technician Instructor: WALDEMAR Assessment & Plan Assessment & Plan (1) Asthma: Code(s): J45.909 - Unspecified asthma, uncomplicated Category: Medical (2) Dyspnea on exertion: Code(s): R06.09 - Other forms of dyspnea Category: Medical (3) Multiple pulmonary nodules: Code(s): R91.8 - Other nonspecific abnormal finding of lung field Category: Medical Plan Reviewed Chest CT which revealed hyperinflation and stable pulmonary nodules, however LLL nodule did appear more prominent during recent chest CT. Will repeat in one year and if no changes then no need for further imaging. Will also send for PFT as last respiratory study was performed in 2020. She is requesting this to be performed in the summer. We discussed using albuterol MDI and discussed importance of good oral hygiene to prevent thrush. She will consider a daily inhaler in the future if symptoms persist. All questions were answered and patient is in agreement of plan. Will follow up to review results or sooner if needed. Orders: Orders CT chest wo IV con 11 Months R91.8 - Other nonspecific abnormal finding of lung field PFT pulmonary function test 4 Months J45.909 - Unspecified asthma, uncomplicated Coding Level of Care Code Est Pt Level 4 (23405) Diagnoses Asthma J45.909 Dyspnea on exertion R06.09 Multiple pulmonary nodules R91.8
[2024-10-28 15:14] VITALS: BP 130/70; PULSE 84; O2SAT 96; BMI 32.8
--- OUTSIDE RECORDS SUMMARY | 2024-10-28 18:34 | XMS_ITS | Clinical Summary ---
Author Organization [facility] Address [address] [place] [address] Care Team Providers Care Motor And Generator Brush Cutter Name Role Phone Swathi Delgado MD Primary Care Provider [phone] Allergies Active Allergy Reactions Criticality Noted Date Comments Codeine High 01/04/2012 Eggs Anaphylaxis High 01/04/2012 Medications Atenolol 25 MG Tab 1 TABLET DAILY Activ e Pantoprazole Sodium (PROTONIX) 40 MG Tablet Delayed Response 1 TABLET DAILY Activ e Meloxicam 7.5 MG Tab 1 TWICE TABLET DAILY 60 Tab 2 2 Active Estradiol 1 MG Tab 1 TABLET DAILY FOR 23 DAYS. OFF 5 DAYS Active Pravastatin Sodium 20 MG Tab 1 TABLET AT BEDTIME Active Omeprazole 20 MG Tablet Delayed Response 1 TABLET DAILY Activ e Magnesium 500 MG Tab None Entered Active Ondansetron HCl (ZOFRAN) 4 MG Tab 2 TABLETS 3 TIMES DAILY NEEDED FOR NAUSEA 30 Tab 0 4 Active Amoxicillin 500 MG Tab 4 tablets 1 hour prior to procedure 4 Tab 4 7 Active Active Problems Problem Noted Date Diagnosed Date Osteoarthritis of knee 06/21/2014 Social History Tobacco Use Types Packs/Day Years Used Date Smoking Tobacco: Never Smokeless Tobacco: Never Alcohol Use Standard Drinks/Week Comments Yes 0 (1 standard drink = 0.6 oz pur e alcohol) Comments No Sex and Gender Information Value Date Recorded Sex Assigned at Not on file Legal Sex Female 1:53 AM EDT Gender Identity Not on file Sexual Orientation Not on file Last Filed Vital Signs Vital Sign Reading Time Taken Comments Blood Pressure 140/84 06/21/2014 9:44 AM EDT Pulse 60 06/21/2014 9:44 AM EDT Temperature 36.7 ??C (98 ??F) 06/21/2014 9:44 AM EDT Respiratory Rate 14 06/21/2014 9:44 AM EDT Oxygen Saturation - - Inhaled Oxygen Concentration - - Weight 90.3 kg (199 lb) 06/21/2014 9:44 AM EDT Height 165.1 cm (5' 5 ) 06/21/2014 9:44 AM EDT Body Mass Index 33.12 06/21/2014 9:44 AM EDT Plan of Treatment Health Maintenance Due Date Last Done Comments Hepatitis C Screening 1945 DTaP/Tdap/Td (1 - Tdap) 1963 Pneumococcal 50+ years (1 of 1 - PCV) 1995 Zoster (Shingrix) (1 of 2) 1995 Bone Density 2010 RSV (1 - 1-dose 75+ series) 2020 COVID-19 Vaccine ( - 2023-2 5 season) 2024 Influenza (#1) 2024 HPV Vaccine Aged Out No longer eligi ble based on patient's age to complete this topic Hep A Aged Out No longer eligi ble based on patient's age to complete this topic Hep B Aged Out No longer eligi ble based on patient's age to complete this topic Hib Aged Out No longer eligi ble based on patient's age to complete this topic Mammogram/Breast Imaging Discontinued Meningococcal ACWY Aged Out No longer eligible based on patient's age to complete this topic Pap Smear Discontinued Zoster (Zostavax) Discontinued Insurance [address] [place], [place] [address]S MEDICARE PREFERRED HMO Care Teams Motor And Generator Brush Cutter Relationship Specialty Start Date End Date Swathi Delgado MD [address] [address] PCP - General Family Medicine 01/05/14
--- OUTSIDE RECORDS SUMMARY | 2024-10-28 18:34 | XMS_ITS | Patient Health Record ---
Author Organization [facility] Address [address] [facility] [place] [address] Care Team Providers Care Director Of Sales Support Name Role Phone Luis Armando PERALES, Kajal Primary Care Provider Unavail able Black, Elen Unavailable [phone] Allergies Allergen (clinical drug ingredient) Drug/Non Drug Allergy documented on EMR Reaction Allergy Type Onset Date Status Feathers feathers (uncoded) rash Allergy A ctive Poultry poultry (uncoded) Unknown Allergy Ac tive Adhesive rash Allergy Active codeine Codeine rash Drug Allergy Active Eggs or Egg-derived Products rash Drug Allergy Active Latex Latex rash Allergy Active Results Component Value Reference Range Notes X ray : Foot, right 3V Reviewed date:07/23/2024 05:05:11 PM Interpretation:See Examination above Performing Lab: Notes/Report: See Examination above HEMOGLOBIN A1C (GLYCOHEMOGLO BIN) Reviewed date:07/23/2024 11:01:54 AM Interpretation: Performing Lab: Notes/Report: TOTAL HEMOGLOBIN (HGBA1C) 6.6 HEMOGLOBIN A1C (GLYCOHEMOGLO BIN) Reviewed date:09/30/2024 09:17:38 AM Interpretation: Performing Lab: Notes/Report: HEMOGLOBIN A1C % (HH) 6.6 Reason For Referral No Information Medications Medication SIG (Take, Route, Frequency, Duration) Notes Start Date End Date Status Omeprazole 20 MG 1 capsule 30 minutes before morning meal Orally Once a day Active Famotidine 40 MG 1 tablet Orally Once a day Active Magnesium Active Meloxicam 15 MG 1 tablet Orally Once a day Active Eliquis stopping in a week Active Atorvastatin Calcium 10 MG 1 tablet Orally Once a day Active Berberine Chloride 1200mg/100mg Active Metoprolol Succinate ER 25 MG 1 tablet Orally Once a day Active Loratadine 10 MG 1 tablet Orally Once a day Active Aspirin 81 MG 1 tablet Orally Once a day Active CoQ-10 100 MG as directed Orally Active Ammonium Lactate 12 % 1 application Externally to affected areas of dry skin to feet except for between the toes Twice a day for 30 days Active Aloe Vera - as directed Externally Active amLODIPine Besylate 5 MG 1 tablet Orally Once a day Active Extra Depth Orthopedic Shoes (1 Pair) with Customized Heat Molded Multidensity Innersoles (3 Pair) as directed Dx: NIDDM (E11.9), Hammertoe Foot Deformity (M20.41,M20.42), Preulcerative Skin Lesion(s) (L85.1) 09/30/2024 Active Ferrous Gluconate 240 (27 Fe) MG 1 tablet Orally Three times a Week Active Diclofenac Sodium 1 % as directed Externally 07/23/2024 Active Social History Tobacco Use: Social History Observation Description Date Details (start date - stop date) Never Smoker NA - NA Tobacco use other than smoking: Question Answer Notes Are you an other tobacco user? No Tobacco Control (Standard) Question Answer Notes Tobacco use: Nonsmoker Additional Findings: Tobacco non-user Current no nsmoker AUDIT-C (Standard) Question Answer Notes Did you have a drink containing alcohol in the p ast year? 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) Active confirmed Problem 323502662 Plantar flexed metatarsal bone of right foot (M21.6X1) Active confirmed Vital Signs Blood pressure diastolic 77 mm Hg 09/30/2024 Height 5ft 5in in 09/30/2024 Blood pressure systolic 120 mm Hg 09/30/2024 Weight 200 lbs 09/30/2024 BMI 33.28 kg/m2 09/30/2024 Procedures Procedure Date Ordered Date Performed Result Body Sit e 85082-UUOU SKIN LESIONS, 2 TO 4 09/30/2024 N/A Encounters Encounter Location Date Provider Diagnosis [address] [address] 07/23/2024 Elen Black Pain in right foot M79.671 ; Metatarsalgia, right foot M77.41 ; Pain in right ankle and joints of right foot M25.571 ; Bursitis of intermetatarsal bursa of right foot M77.51 ; Plantar flexed metatarsal bone of right foot M21.6X1 and Keratoma L57.[address] [address] 09/30/2024 Elen Black Pain in right foot M79.671 ; Metatarsalgia, right foot M77.41 ; Pain in right ankle and joints of right foot M25.571 ; Bursitis of intermetatarsal bursa of right foot M77.51 ; Plantar flexed metatarsal bone of right foot M21.6X1 ; Keratoma L57.0 ; Xerosis of skin L85.3 ; Other hammer toe(s) (acquired), right foot M20.41 ; Other hammer toe(s) (acquired), left foot M20.42 ; Type 2 diabetes mellitus without complications E11.9 and Acquired unequal limb length M21.[address] [address] 07/23/2024 Elen Black Assessments Encounter Date Diagnosis (ICD Code) Assessment Notes Treatment Notes Treatment Clinical Notes Section Notes 07/23/2024 Metatarsalgia, right foot (ICD-10 - M77.41) 07/23/2024 Pain in right foot (ICD-10 - M79.671) 09/30/2024 Metatarsalgia, right foot (ICD-10 - M77.41) 09/30/2024 Pain in right foot (ICD-10 - M79.671) 09/30/2024 Pain in right ankle and joints of right foot (ICD-10 - M25.571) 07/23/2024 Pain in right ankle and joints of right foot (ICD-10 - M25.571) 07/23/2024 Bursitis of intermetatarsal bursa of right foot (ICD-10 - M77.51) 09/30/2024 Bursitis of intermetatarsal bursa of right foot (ICD-10 - M77.51) 07/23/2024 Plantar flexed metatarsal bone of right foot (ICD-10 - M21.6X1) 09/30/2024 Plantar flexed metatarsal bone of right foot (ICD-10 - M21.6X1) 09/30/2024 Keratoma (ICD-10 - L57.0) 07/23/2024 Keratoma (ICD-10 - L57.0) 09/30/2024 Xerosis of skin (ICD-10 - L85.3) 09/30/2024 Other hammer toe(s) (acquired), right foot (ICD-10 - M20.41) Patient Educated with: DIABETIC FOOT CARE INSTRUCTIONS. pdf (DIABETIC FOOT CARE INSTRUCTIONS. pdf), added to shoes rx- off load pressure areas and add 3/4 lift to right foot 09/30/2024 Other hammer toe(s) (acquired), left foot (ICD-10 - M20.42) 09/30/2024 Type 2 diabetes mellitus without complications (ICD-10 - E11.9) 09/30/2024 Acquired unequal limb length (ICD-10 - M21.70) Plan Of Treatment Pending Test Test Name Order Date [id number] SKIN LESIONS, 2 TO 4 09/30/19 25 Next Appt Details Provider Name:Elen Strickland , 12/08/2024 08:15:00 AM, [address] [facility], [place], [address], Insurance Providers Payer Name Payer Address Payer Phone Subscriber Number Group Number Insured Name Patient Relationship to Insured Coverage Start Date Coverage End Date [facility] 65 Medicare [address] [place] [address] [id number] Cesia Martinez Self - patient is the insured Medical (General) History Medical History History ICD Code asthma Back,Hip,and Knee pain Broken bones Diabetic covid-19 Headaches/Migraines Heart disease Hiatal hernia High Blood Pressure Kidney disease Reflux ( GERD) Stomach ulcer Warts Bone implants/screws Measles Chicken pox Transfusions DVT, thrombophlebitis Surgical History Surgery Date(Month/Year) SI Joint injection 12/25/2019 L. hip replacment 09/07/2019 cataract 06/18/2019 colonoscopy 08/03/2015 endoscopy 06/01/2015 R. knee 07/19/2014 R. foot bunion/hammer toe 09/2013 L. knee/ replacement 10/2010 L. knee / replacement 03/2009 L. knee/ orthoscopic meniscus 07/2008 L. knee / partial replacement 01/2008 breast reduction 1996 nose surgery deviated septum 1996 hysterectomy 1981 x5 Hospitalization History Reason Date(Month/Year) Ligia Gonzalez- DVT 06/25
--- OUTSIDE RECORDS SUMMARY | 2024-10-28 18:35 | XMS_ITS ---
Author Organization [facility] Address [address] [place] [address] Care Team Providers Care Dairy Feed Sales Consultant Name Role Phone Luis Armando PERALES, Kajal Primary Care Provider Unavail able Marco AElen Unavailable [phone] REASON FOR VISIT Bradley (REDI-T) B / W 8-8.5 Encounters Encounter Location Date Provider Diagnosis [facility] [address] [place] [address] 07/23/2024 Elen Marco A Plan Of Treatment Next Appt Details Provider Name:Elen Agudelo Marco A , 12/08/2024 08:15:00 AM, [address] [facility], [place], [address], Progress Notes * Cesia MARTINEZ PDOB:[birth year] (78 yo F)Acc No.[id number]:07/23/2024 Patient:?Cesia MARTINEZ :1945???Age:78 Y???Sex:Female Address:[address], [place] [facility] [place], [address] * true * Date:? Generated for Printi ng/Faxing/eTransmitting on:?10/28/2024 06:34 PM EST
--- OUTSIDE RECORDS SUMMARY | 2024-10-28 18:35 | XMS_ITS ---
Author Organization [facility] Address [address] [facility] [place] [address] Care Team Providers Care Licensed Physical Therapist Assistant Name Role Phone Luis Armando PERALES, Kajal Primary Care Provider Unavail able Black, Elen Unavailable [phone] Allergies Allergen (clinical drug ingredient) Drug/Non Drug Allergy documented on EMR Reaction Allergy Type Onset Date Status Feathers feathers (uncoded) rash Allergy A ctive Poultry poultry (uncoded) Unknown Allergy Ac tive Adhesive rash Allergy Active codeine Codeine rash Drug Allergy Active Eggs or Egg-derived Products rash Drug Allergy Active Latex Latex rash Allergy Active REASON FOR VISIT At Risk Footcare, Foot pain, Skin problem(s), Toe Irritation Medications Medication SIG (Take, Route, Frequency, Duration) Notes Start Date End Date Status Omeprazole 20 MG 1 capsule 30 minutes before morning meal Orally Once a day Active Magnesium Active Meloxicam 15 MG 1 tablet Orally Once a day Active CoQ-10 100 MG as directed Orally Active Extra Depth Orthopedic Shoes (1 Pair) with Customized Heat Molded Multidensity Innersoles (3 Pair) as directed Dx: NIDDM (E11.9), Hammertoe Foot Deformity (M20.41,M20.42), Preulcerative Skin Lesion(s) (L85.1) 09/30/2024 Active Eliquis stopping in a week Active Berberine Chloride 1200mg/100mg Active Aloe Vera - as directed Externally Active Ferrous Gluconate 240 (27 Fe) MG 1 tablet Orally Three times a Week Active Diclofenac Sodium 1 % as directed Externally 07/23/2024 Active Atorvastatin Calcium 10 MG 1 tablet Orally Once a day Active Metoprolol Succinate ER 25 MG 1 tablet Orally Once a day Active Loratadine 10 MG 1 tablet Orally Once a day Active Aspirin 81 MG 1 tablet Orally Once a day Active amLODIPine Besylate 5 MG 1 tablet Orally Once a day Active Famotidine 40 MG 1 tablet Orally Once a day Active Ammonium Lactate 12 % 1 application Externally to affected areas of dry skin to feet except for between the toes Twice a day for 30 days Active Social History Tobacco Use: Social History [...] Problem Acquired hammer toe of right foot (6286230908017594) Other hammer toe(s) (acquired), right foot (M20.41) Active confirmed Problem Acquired hammer toe of left foot (5736127886876264) Other hammer toe(s) (acquired), left foot (M20.42) Active confirmed Problem Type II diabetes mellitus without complication (833978274) Type 2 diabetes mellitus without complications (E11.9) Active confirmed Problem [id number] Acquired 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) Active confirmed Vital Signs Height 5ft 5in in 09/30/2024 Weight 200 lbs 09/30/2024 BMI 33.28 kg/m2 09/30/2024 Blood pressure systolic 120 mm Hg 09/30/19 25 Blood pressure diastolic 77 mm Hg 025 Procedures Procedure Date Ordered Date Performed Result Body Sit e 25997-CEAP SKIN LESIONS, 2 TO 4 09/30/2024 N/A Encounters Encounter Location Date Provider Diagnosis [facility] [address] [address] 09/30/2024 Elen Black Pain in right foot [...] E11.9 and Acquired unequal limb length M21.70 Assessments Encounter Date Diagnosis (ICD Code) Assessment Notes Treatment Notes Treatment Clinical Notes Section Notes 09/30/2024 Pain in right foot (ICD-10 - M79.671) 09/30/2024 Metatarsalgia, right foot (ICD-10 - M77.41) 09/30/2024 Pain in right ankle and joints of right foot (ICD-10 - M25.571) 09/30/2024 Bursitis of intermetatarsal bursa of right foot (ICD-10 - M77.51) 09/30/2024 Plantar flexed metatarsal bone of right foot (ICD-10 - M21.6X1) 09/30/2024 Keratoma (ICD-10 - L57.0) 09/30/2024 Xerosis of [...] length (ICD-10 - M21.70) Plan Of Treatment Medication Medication Name Sig Start Date Stop Date Notes Extra Depth Orthopedic Shoes (1 Pair) with Customized Heat Molded Multidensity Innersoles (3 Pair) as directed Dx: NIDDM (E11.9), Hammertoe Foot Deformity (M20.41,M20.42), Preulcerative Skin Lesion(s) (L85.1) 09/30/2024 Ammonium Lactate 12 % 1 application Exte rnally to affected areas of dry skin to feet except for between the toes Twice a day for 30 days Treatment Notes Assessment Notes Other hammer toe(s) (acquired), right fo ot Patient Educated with: DIABETIC FOOT CARE INSTRUCTIONS.pdf (DIABETIC FOOT CARE INSTRUCTIONS.pdf), added to shoes rx- off load pressure areas and add 3/4 lift to right foot Pending Test Test Name Order Date [id number]-RYWN SKIN LESIONS, 2 TO 4 09/30/19 25 Next Appt Details Follow Up: 3 Months, Reason: Provider Name:Elen Strickland , 12/08/2024 08:15:00 AM, [address] [facility], [place], [address], Procedure Notes * Category Sub-Category Detail Notes Keratoma Treatment Parring or Cutting o f Benign Hyperkeratotic Lesion(s) (-56) 2-4 Lesions - Due to the at risk nature of the patients medical condition as documented in the exam findings, performance of this keratoderma treatment is medically necessary as its management by an unskilled/untrained nonprofessional would put this patients foot and overall health at risk. Therefore, the benign hyperkeratotic lesions, ( _4_ ) in total, locations as stated and described in the exam ( _SUB MTH (s), 2, B/L, SUB 5th MTBase, Right ,__ ), were pared, and/or cut utilizing a sterile 15 blade, tissue nippers, and/or power dremel instrumentation by the physician of record - [id number] Progress Notes * Cesia MARTINEZ PDOB:[birth year] (78 yo F)Acc No.[id number]:09/30/2024 Progress Note Patient:?Cesia MARTINEZ P Provider:?Elen Strickland DPM :1945???Age:78 Y???Sex:Female D ate:09/30/2024 Address: [address], [place], [place] Pcp:Kajal Durán NP Subjective: * Chief Complaints: * ???At Risk FootcareFoot pain Skin problem(s)Toe Irritation * HPI: ???Foot Pain:?Nature:?sharp.?Location:?Bottom, Forefoot, RIGHT.?Duration:?, several years.?Course:?, unchanged.?Treatments:?rest/alter normal daily activity, OTC pads, wart removal,insert.?Misc:?previous surgery on right foot- bunion and 3rd metatataral.?Skin problems:?Nature:?dryness , scaling.?Location:?B/L .?Duration:?several days.?Course:?worse.?Toe pain:?Location:?B/L feet.?Duration:?several years.?Course:?worse.?Aggravated by:?shoes, any pressure.?Treatments:?change in shoes.? * ROS:?General/Constitutional:?Nausea?denies.?Vomiting?denies.?Hunger Thirst?denies.?Loss appetite?denies.?Chills?denies.?Fatigue?denies.?Fever?denies.?Night Sweats?admits.?Unexplained weight loss?denies.?Unexplained weight gain?denies.?HEENTM:?Dentures?denies.?Dizziness?denies.?Glasses/contacts?admits.?Retinopathy?den ies.?Blurred/double vision?denies.?TMJ?denies.?Discharge/drainage?denies.?Implants?denies.?Sore throat?denies.?Dental implants?denies.?Hard of hearing ?admits.?Difficulty chewing/swallowing/speaking?denies.?Nose bleeds?denies.?Sore mouth?denies.?Respiratory:?On O xygen?denies.?Pneumonia/pleurisy?denies.?Bronchitis?denies.?Emphysema?denies.?Co ughing?admits.?Cough blood?denies.?Shortness of breath?admits.?Wheezing?denies.?Cardiovascular:?Pacemaker?denies.?MVP?denies.?WPW?denies.?CHF?denies.?Heart attack?denies.?Septal defect?denies.?Rapid beat?admits.?Chest pain ?denies.?Atrial Fib.?denies.?Murmur/Palpitations?denies.?Gastrointestinal:?Hemorrhoids?denies.?Stomach/Abdominal pain?denies.?Dark blood stool?denies.?Irritable bowel ?denies.?Constipation?denies.?Diarrhea?denies.?Hematology:?Swelling?denies.?Clots?denies.?Varicose Veins?denies.?Bruising?denies.?Bleeding problem?denies.?Genitourinary:?Blood urine?denies.?Frequent/Painfu/urination/bladder control?denies.?Kidney stones?denies.?Infection (UTI)?denies.?Nephropathy?denies.?sex trans dis (STD)?denies.?Prostate?denies.?Musculoskeletal:?Hammertoes?denies.?Bunions?denies.?Back Pain?admits.?Muscle Cramps/ Resting?admits.?Muscle cramps / walking?denies.?Generalized aches and pains?admits.?Weakness?denies.?Integ.:?Patel?denies.?Scars?admits.?Corns/calluses?admits.?Ingrown nails?denies.?Painful nails?denies.?Open Sores?denies.?Rashes?denies.?Neurologic:?Difficulty sleeping?denies.?Brain disorder?denies.?Numbness?denies.?Balance t rouble?admits.?Confusion?denies.?Fainting/blackouts?denies.?Tingling?denies.?Tobin mors?denies.? * Medical History:? * Surgical History:?SI Joint i njection 12/25/2019L. hip replacment 09/07/2019cataract 06/18/2019colonoscopy 08/03/2015endoscopy 06/01/2015R. knee 07/19/2014R. foot bunion/hammer toe 09/2013L. knee/ replacement 10/2010L. knee / replacement 03/2009L. knee/ orthoscopic meniscus 07/2008L. knee / partial replacement reast reduction 1997nose surgery deviated septum 1996hysterectomy 1981birth x5 * Hospitalization/Major Diagno stic Procedure:?Ligia Carlos- DVT 06/25 * Family History:?Mother: dece ased, arthritis - everyone in family has it, diagnosed with Family history of arthritis.?Father: , heart attack, diagnosed with Family history of arthritis.?Paternal Grand Mother: foot problems, diagnosed with Diabetic - NIDDM.?Siblings: heart attack.?Paternal Grand Father: diagnosed with Other malignant neoplasm of unspecified site.?Maternal Grand Father: diagnosed with Unspecified cerebral artery occlusion with cerebral infarction.? * Social History:?Tobacco Use:?Tobacco use other than smoking?Are you an other tobacco user??No ?Tobacco Control (Standard)?Tobacco use:?Nonsmoker ?Additional Findings: Tobacco non-user?Current nonsmoker ???Drugs/Alcohol:?Drugs?Have you used drugs other than those for medical reasons in the past 12 months??No ???Miscellaneous:?Caffeine: yes, frequency: 2 cups a day. ?Children: yes, 5. ?Exercise: yes, gardening/yard work. ?Marital status: . 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 ???Drug/Alcohol:?AUDIT-C (Standard)?Did you have a drink containing alcohol in the past year??No ?Points?0 ?Interpretation?Negative * Medications:?TakingEliquis , Notes to Pharmacist: stopping in a weekBerberine Chloride , Notes to Pharmacist: 1200mg/100mgAloe Vera - Gel as directed Externally Ferrous Gluconate 240 (27 Fe) MG Tablet 1 tablet Orally Three times a Week CoQ- 10 100 MG Capsule as directed Orally Magnesium Meloxicam 15 MG Tablet 1 tablet Orally Once a day Omeprazole 20 MG Capsule Delayed Release 1 capsule 30 minutes before morning meal Orally Once a day Famotidine 40 MG Tablet 1 tablet Orally Once a day Loratadine 10 MG Tablet 1 tablet Orally Once a day Aspirin 81 MG Tablet Chewable 1 tablet Orally Once a day Atorvastatin Calcium 10 MG Tablet 1 tablet Orally Once a day Metoprolol Succinate ER 25 MG Tablet Extended Release 24 Hour 1 tablet Orally Once a day amLODIPine Besylate 5 MG Tablet 1 tablet Orally Once a day Diclofenac Sodium 1 % Gel as directed Externally Medication List reviewed and reconciled with the patientTaking Becky , Notes to Pharmacist: stopping in a weekTaking Berberine Chloride , Notes to Pharmacist: 1200mg/100mgTaking Aloe Vera - Gel as directed Externally Taking Ferrous Gluconate 240 (27 Fe) MG Tablet 1 tablet Orally Three times a Week Taking CoQ-10 100 MG Capsule as directed Orally Taking Magnesium Taking Meloxicam 15 MG Tablet 1 tablet Orally Once a day Taking Omeprazole 20 MG Capsule Delayed Release 1 capsule 30 minutes before morning meal Orally Once a day Taking Famotidine 40 MG Tablet 1 tablet Orally Once a day Taking Loratadine 10 MG Tablet 1 tablet Orally Once a day Taking Aspirin 81 MG Tablet Chewable 1 tablet Orally Once a day Taking Atorvastatin Calcium 10 MG Tablet 1 tablet Orally Once a day Taking Metoprolol Succinate ER 25 MG Tablet Extended Release 24 Hour 1 tablet Orally Once a day Taking amLODIPine Besylate 5 MG Tablet 1 tablet Orally Once a day Taking Diclofenac Sodium 1 % Gel as directed Externally Medication List reviewed and reconciled with the patient * Allergies:?Codeine: rashAdhe sive: rashLatex: rashEggs or Egg-derived Products: rashfeathers: rashpoultryyes[Allergies Verified] Objective: * Vitals:?Ht: 5ft 5in, Wt: 200 , BMI: 33.28, Shoe size: 8, BP: 120/77 mm Hg, BS: not taken, Ht-cm: 165.1 cm, Wt-k.72 kg. * ???Past Orders: ???Lab:HEMOGLOBIN A1C (GLYCO HEMOGLOBIN) (Order Date - 07/15/2024) (Collection Date & Time - 07/15/2024 09:17 AM) ? Value Reference Range ?HEMOGLOBIN A1C % (HH) 6.6 * Examination: ???Ophthalmology Referral: ?DIABETES EYE EXAM?Procedure Performed:?Yes ?Date of Exam Performed?09/02/2023 ?Diabetic Retinopathy Screening:?Yes ?Findings of Diabetic Eye Exam:?no retinopathy?General Examination: ?GENERAL APPEARANCE:?Reveals a pleasant, alert, well nourished, well- developed, well hydrated individual, who demonstrates proper attention to hygiene/body habitus, and is in no acute distress, Pt serves as own historian for office visit today.?ORIENTED:?person, place, and time.?FOOT EXAM:?Lower Extremity Neurological Exam performed:?Yes Date ?Visual exam of foot performed:?Yes ?Date?09/30/2024 ?Sensory testing performed:?sensations normal ?Sensory and motor testing performed:?sensations normal ?Pedal pulse taking performed:?2+ ?Footwear Evaluation?Footwear Evaluation performed:?Yes?Orthopedic: ?MUSCLE STRENGTH:?5/5 all groups in a symmetrical fashion, B/L.?GAIT ABNORMALITY:?antalgic.?LIMB LENGTH DISCREPANCY:?L > R 3/4 inch.?DIGITAL DEFORMITIES:?Digital contracture, PIPJ, 2-5 B/L, incompl-reducible with WB, or to push-up test, no over, nor underlapping , Digital contracture, PIPJ, 2-5 B/L, incompl-reducible to push-up test, no over, nor underlapping,?there is?evidence of shoe producing skin irritation.?MPJ PATHOLOGY:? Pain, swelling, and inflammation to plantar 2nd right MPJ(s), RIGHT, No MPJ pain with ROM, [ - ] Ecchymosis Pain,swelling and inflammation base of 5th metatarsal right.?FOOTWEAR:?worn, non-supportive, shoe gear properties exacerbate patient's foot/toe deformity, 3/4 lift on right shoe, OT were inspected and noted to be severely worn, in poor condition not giving proper support at the present time.?Neurological: ?SENSORY:?Neurological exam reveals intact sensorium, pain sensation normal, vibration sensation intact, pinprick sensation is normal in the lower extremities, Pt denies, anesthesia, burning, paresthesia, tingling, B/L.?TINEL'S COMPRESSION:? Negative tarsal tunnel, everton pedis, and medial calcaneal nerves, Right.?Neuroma Pain: ?PALPATION:?No interspace pain noted on palpation.?Dermatologic: ?SKIN FINDINGS:?Skin exam reveals normal color, texture, elasticity, and turgor. There are no masses, nor excrescences. The interspaces are clear, B/L, Skin exam reveals Keratotic lesion(s) located at,SUB MTH (s), 2, B/L, SUB 5th MTBase, Right , Skin shows sign(s) of, dryness, scaling, in a stocking fashion, no fissure(s) present, B/L.?Vascular: ?DP PULSES (B):?2/4, B/L.?PT PULSES (B):?2/4, B/L.?CAPILLARY FILL TIME:?immediate, all digits, B/L.?TROPHIC CONDITION-TEXTURE/ELASTICITY/TURGOR/HAIR GROWTH (B):?normal, B/L.?TEMPERTURE GRADIENT (C):?normal, warm to cool, proximal to distal, B/L, B/L.? Assessment: * Assessment: 1.?Metatarsalgia, right foot - M77.41 (Primary)???Specify :Resistant to previous conservative treatment???2.?Pain in right foot - M79.671???3.?Pain in right ankle and joints of right foot - M25.571???4.?Bursitis of intermetatarsal bursa of right foot - M77.51???5.?Plantar flexed metatarsal bone of right foot - M21.6X1???6.?Keratoma - L57.0???7.?Xerosis of skin - L85.3???Specify :Acute problem, Uncomplicated (3),Rx Management (4)???8.?Other hammer toe(s) (acquired), right foot - M20.41???Specify :Chronic problem, Worse (4),Rx Management (4)???9.?Other hammer toe(s) (acquired), left foot - M20.42???Specify :Chronic problem, Worse (4),Rx Management (4)???10.?Type 2 diabetes mellitus without complications - E11.9???11.?Acquired unequal limb length - M21.70??? Plan: * Treatment: 2.?Other hammer toe(s) (acqu ired), right foot? Start Extra Depth Orthopedic Shoes (1 Pair) with Customized Heat Molded Multidensity Innersoles (3 Pair), as directed, Dx: NIDDM (E11.9), Hammertoe Foot Deformity (M20.41,M20.42), Preulcerative Skin Lesion(s) (L85.1), 1, Refills 0.?? Notes: Patient Educated with: DIABETIC FOOT CARE INSTRUCTIONS.pdf (DIABETIC FOOT CARE INSTRUCTIONS.pdf), added to shoes rx- off load pressure areas and add 3/4 lift to right foot?? 3.?Type 2 diabetes mellitus without complications?Procedure: [id number] SKIN LESIONS, 2 TO 4 * Procedures:?Keratoma Treatment:?Parring or Cutting of Benign Hyperkeratotic Lesion(s)?(-56) 2-4 Lesions - Due to the at risk nature of the patients medical condition as documented in the exam findings, performance of this keratoderma treatment is medically necessary as its management by an unskilled/untrained nonprofessional would put this patients foot and overall health at risk. Therefore, the benign hyperkeratotic lesions, ( _4_ ) in total, locations as stated and described in the exam ( _SUB MTH (s), 2, B/L, SUB 5th MTBase, Right ,__ ), were pared, and/or cut utilizing a sterile 15 blade, tissue nippers, and/or power dremel instrumentation by the physician of record - 78520.? * Procedure Codes:?21261 TRIM SKIN LESIONS, 2 TO 4, Modifiers: XS * Preventive Medicine:? ??Counseling:?Discussion:?-14: Office or other outpatient visit for the evaluation and management of an established patient, which required a medically appropriate history and/or examination and MODERATE level of DECISION MAKING for: 1 OR MORE CHRONIC PROBLEM(S) THATS WORSENING, 2 STABLE CHRONIC PROBLEMS, A NEWLY DIAGNOSED PROBLEM WITH UNCERTAIN PROGNOSIS, AN ACUTE COMPLICATED INJURY WITH MULTIPLE TREATMENT OPTIONS, OR AN ACUTE PROBLEM WITH ACCOMPANYING SYSTEMIC SYMPTOMS, THAT POSE(S) A MODERATE RISK OF MORBIDITY. THIS CONDITION MAY ALSO INCLUDE RX DRUG MANAGEMENT, OR A DECISON FOR MINOR SURGERY. The visit on the day of the encounter encompassed interpreting the data and educating the patient as to the nature of their condition, treatment options available according to their individual PMH, meds, allergies, and overall health/living conditions, as well as any potential risks or complications that may occur from a failure to adhere to, and participate in, the recommended course of therapy. The discussion included a complete verbal, and/or written explanation of the examination results, any x-rays taken, the proposed diagnosis, and outline of the treatment plan. A schedule for future care needs was also explained. The patient verbalized an understanding of the instructions at this time and agreed to be an active participant in their treatment. If the patient should think of any questions or concerns after the visit, I have encouraged the patient to call the office.?Digital Surgery:?We elected to try conservative treatment at the present time.?Digital Treatment:?HT- I explained to the patient the possible etiologies of Hammertoes, including genetics/foot type/shoegear/activity level/exercise routine and the risks/benefits of all the different treatment options for their pain including: No treatment at all, Rest, Ice, New/supportive/wider/deeper Shoe gear, Digital Padding/Strapping/Taping/Bracing/Gel protective sleeves, Foot/Ankle AFO Bracing, Stretching exercises, Deep Tissue Massage, Arch support/shoe inserts with splay metatarsal padding, and Custom orthoses. I insisted that any digital devices be removed daily and not worn overnight for safety. The patient is to carefully examine the toes daily for any skin irritation while using any splinting or padding device. The advantages and disadvantages of each option were discussed and the patients questions re: shoe gear, padding, custom vs prefabricated inserts, activity level, and consistency in home treatment regimens for optimal success were answered to their verbally confirmed satisfaction, Recomm, rest, ice, proper shoegear, padding, orthotics, anti-inflammatories or tylenol as tolerated, topical analgesics, cortisone injections.?Metatarsalgea:?Discussed other tx options for the patients condition, , Added Met Bar to OT, Topical analgesics of Aspercream or Voltaren gel.?Shoe Gear Counseling:?SHOE Rx - The patient was counseled in great detail on their muscoloskeletal foot and toe deformities which coincided with the dermatological presentations visualized on exam. We discussed how their deformities put the integrity of their feet at risk for potential pedal complications which makes the accomidative diabetic shoes and cutomizable inserts medically necessary. We discussed the different shoe and insert treatment types and options, as well as the important advantages for adhering to regularly wearing these accomidative devices daily. The patient was made aware of the fact that a failure to abide by these recommedations may be deleterious to their foot health as they are able to prevent many pedal complications such as skin irritation, skin ulceration, infection, and even loss of toe/foot/leg/or life. Time was also spent with the patient dispensing and discussing proper diabetic footcare techniques including daily skin moisturization, daily foot inspection for any interruption in skin integrity including open lesions, or sign of infection such as redness/malodor/drainage/swelling. Also discussed and recommended were procedures regarding daily shoe inspection for the presence of internal foreign bodies as well as any visualized irregular shoe or insert wear. Patient questions re: shoes, inserts, and self foot inspections were answered to their satisfaction as the patient verbally confirmed a full understanding of the above information. A Rx for Extra Depth Orthopedic Shoes with 3 pair of custom heat-molded inserts was dispensed.?Xerosis:?The patient was counseled on the diagnosis, potential etiologies, and treatment options for their skin condition. We discussed the risks and benefits of each option from performing no treatment, to utilizing OTC topical skin creams/ointments, to utilizing prescription topical creams/ointments, to utilizing customized compounded topical medications and use of nocturnal occlusion with any/all previously detailed therapies. We discussed the advantages and disadvantages of each possible treatment and importance for adherence to all the recommended therapies for optimum success and avoid potential complications such as open sore/infection/possible hospitalization. We discussed the potential effectiveness of each topical preparation as well as each ones possible side effects and/or patient medication interactions. Patient questions re: use, dosage, successful outcomes, and application consistency were reviewed and the patient verbalized that all answers were clearly understood. The patient has decided to apply Rx skin creams to their feet save the interspaces while paying special attention to the heels. Such was sent to their pharmacy at the time of visit.? ??Screening/Special Tests:?Fall Risk?Screening:?No falls in the past year ?FALLS: Screening for Future Fall Risk?Have you had any falls with injury in the past year??No * Follow Up:?3 Months * Images: * Sign off status: Completed true * Provider:?Elen Strickland DPM Date:?2024 Generated for Toy jacobo/Camilla/Thania on:?10/28/2024 06:34 PM EST History and Physical Notes * HPI (History of Present Illness) Category Sub-Category Detail Notes Category Not es Toe pain Location: B/L feet Duration: several years Course: worse Aggravated by: shoes, any pressure Treatments: change in shoes Skin problems Nature: dryness , scaling Location: B/L Duration: several days Course: worse Foot Pain Nature: sharp Location: Bottom, Forefoot, RI GHT Duration: , several years Course: , unchanged Treatments: rest/alter normal da kamlesh activity, OTC pads, wart removal,insert Misc: previous surgery on right foot- bunion and 3rd metatataral Examination Category Sub-Category Detail Notes Category Not es Neuroma Pain PALPATION: No interspace pain noted on palpation Neurological SENSORY: Neurological exa m reveals intact sensorium, pain sensation normal, vibration sensation intact, pinprick sensation is normal in the lower extremities, Pt denies, anesthesia, burning, paresthesia, tingling, B/L TINEL'S COMPRESSION: Negative tarsal jose shadia, everton pedis, and medial calcaneal nerves, Right Dermatologic SKIN FINDINGS: Skin exam reveal s normal color, texture, elasticity, and turgor. There are no masses, nor excrescences. The interspaces are clear, B/L, Skin exam reveals Keratotic lesion(s) located at, SUB MTH (s), 2, B/L, SUB 5th MTBase, Right , Skin shows sign(s) of, dryness, scaling, in a stocking fashion, no fissure(s) present, B/L Orthopedic GAIT ABNORMALITY: antalgic LIMB LENGTH DISCREPANCY: L > R 3/4 inch FOOTWEAR: worn, non-supportive , shoe gear properties exacerbate patient's foot/toe deformity, 3/4 lift on right shoe, OT were inspected and noted to be severely worn, in poor condition not giving proper support at the present time DIGITAL DEFORMITIES: Digital contracture , PIPJ, 2-5 B/L, incompl-reducible with WB, or to push-up test, no over, nor underlapping , Digital contracture, PIPJ, 2-5 B/L, incompl-reducible to push-up test, no over, nor underlapping, there is evidence of shoe producing skin irritation MPJ PATHOLOGY: Pain, swelling, and inflammation to plantar 2nd right MPJ(s), RIGHT, No MPJ pain with ROM, [ - ] Ecchymosis Pain,swelling and inflammation base of 5th metatarsal right MUSCLE STRENGTH: 5/5 all groups in a symmetrical fashion, B/L General Examination GENERAL APPEARANCE: Reveals a pleasant, alert, well nourished, well-developed, well hydrated individual, who demonstrates proper attention to hygiene/body habitus, and is in no acute distress, Pt serves as own historian for office visit today FOOT EXAM: Lower Extremity Neurological Exa m performed:: Yes Date Visual exam of foot performed:: Yes Date: 09/30/2024 Sensory testing performed:: sensations n ormal Sensory and motor testing performed:: se nsations normal Pedal pulse taking performed:: 2+ ORIENTED: person, place, and t jose alfredo Footwear Evaluation Footwear Evaluation performe d:: Yes Ophthalmology Referral DIABETES EYE EXAM Procedure Perform ed:: Yes ?Date of Exam Performed: 09/02/2023 Diabetic Retinopathy Screening:: Yes Findings of Diabetic Eye Exam:: no retin opathy Vascular DP PULSES (B): 2/4, B/L PT PULSES (B): 2/4, B/L CAPILLARY FILL TIME: immediate, all digi ts, B/L TEMPERTURE GRADIENT (C): normal, warm to cool, proximal to distal, B/L, B/L TROPHIC CONDITION-TEXTURE/ELASTICITY/TURGOR/HAIR GROWTH (B): normal, B/L
--- OUTSIDE RECORDS SUMMARY | 2024-10-28 18:35 | XMS_ITS ---
Author Organization [facility] Address [address] [place] [address] Care Team Providers Care Drying Frame Operator Name Role Phone Luis Armando PERALES, Kajal Primary Care Provider Unavail able Black, Elen Unavailable [phone] Allergies Allergen (clinical drug ingredient) Drug/Non Drug [...] above Performing Lab: Notes/Report: See Examination above REASON FOR VISIT Pcp- 07/26, Foot pain Medications Medication SIG (Take, Route, Frequency, Duration) Notes Start Date End Date Status Famotidine 40 MG 1 tablet Orally Once a day Active Loratadine 10 MG 1 tablet Orally Once a day Active Aspirin 81 MG 1 tablet Orally Once a day Active Meloxicam 15 MG 1 tablet Orally Once a day Active Omeprazole 20 MG 1 capsule 30 minutes before morning meal Orally Once a day Active Berberine Chloride 1200mg/100mg Active Aloe Vera - as directed Externally Active Ferrous Gluconate 240 (27 Fe) MG 1 tablet Orally Three times a Week Active CoQ-10 100 MG as directed Orally Active Magnesium Active Diclofenac Sodium 1 % as directed Externally 07/23/2024 Active Atorvastatin Calcium 10 MG 1 tablet Orally Once a day Active Metoprolol Succinate ER 25 MG 1 tablet Orally Once a day Active amLODIPine Besylate 5 MG 1 tablet Orally Once a day Active Eliquis Active Social History Tobacco Use: Social History Observation Description Date Details (start date - stop date) Former Smoker NA - NA Tobacco use other than smoking: Question Answer Notes Are you an other tobacco user? No Tobacco Control (Standard) Question Answer Notes Tobacco use: Former smoker Additional Findings: Tobacco non-user Ex-cigaret te smoker AUDIT-C (Standard) Question Answer Notes Did you have a drink containing alcohol in the p ast year? No Points 0 Interpretation Negative Problems Problem Type SNOMED Code ICD Code Onset Dates Problem Status W/U Status Risk Notes Problem 720869227 Plantar flexed metatarsal bone of right foot (M21.6X1) Active confirmed Vital Signs Height 5ft 5in in 07/23/2024 Weight 200 lbs 07/23/2024 BMI 33.28 kg/m2 07/23/2024 Blood pressure systolic 120 mm Hg 07/23/20 24 Blood pressure diastolic 70 mm Hg 024 Encounters Encounter Location Date Provider Diagnosis [facility] [address] [address] 07/23/2024 Elen Black Pain in right foot M79.671 ; Metatarsalgia, right foot M77.41 ; Pain in right ankle and joints of right foot M25.571 ; Bursitis of intermetatarsal bursa of right foot M77.51 ; Plantar flexed metatarsal bone of right foot M21.6X1 and Keratoma L57.0 Assessments Encounter Date Diagnosis (ICD Code) Assessment Notes Treatment Notes Treatment Clinical Notes Section Notes 07/23/2024 Pain in right foot (ICD-10 - M79.671) 07/23/2024 Metatarsalgia, right foot (ICD-10 - M77.41) 07/23/2024 Pain in right ankle and joints of right foot (ICD-10 - M25.571) 07/23/2024 Bursitis of intermetatarsal bursa of right foot (ICD-10 - M77.51) 07/23/2024 Plantar flexed metatarsal bone of right foot (ICD-10 - M21.6X1) 07/23/2024 Keratoma (ICD-10 - L57.0) Plan Of Treatment Medication Medication Name Sig Start Date Stop Date Notes Diclofenac Sodium 1 % as directed Externally 07/23/2024 Next Appt Details Follow Up: 3 Months, Reason: Provider Name:Elen Strickland , 12/08/2024 08:15:00 AM, [address] [facility], [place], [address], Progress Notes * Cesia MARTINEZ PDOB:[birth year] (78 yo F)Acc No.[id number]:07/23/2024 Progress Notes Patient:?Cesia MARTINEZ P Provider:?Elen Strickland DPM :1945???Age:78 Y???Sex:Female D ate:07/23/2024 Address:[facility] [place] , [facility] Pcp:Kajal Durán NP Subjective: * Chief Complaints: * ???Pcp- 07/26Foot pain * HPI: ???Foot Pain:?Nature:?sharp.?Location:?Bottom, Forefoot, RIGHT.?Duration:?, several years.?Course:?worse.?Treatments:?rest/alter normal daily activity, OTC pads, wart removal.?Misc:?previous surgery on right foot- bunion and 3rd metatataral.? * ROS:?General/Constitutional:?Nausea?denies.?Vomiting?denies.?Hunger Thirst?denies.?Loss appetite?denies.?Chills?denies.?Fatigue?denies.?Fever?denies.?Night Sweats?admits.?Unexplained weight loss?denies.?Unexplained [...] 1981birth x5 * Hospitalization/Major Diagno stic Procedure:?[facility] [place]- DVT 06/25 * Family History:?Mother: dece ased, [...] an other tobacco user??No ?Tobacco Control (Standard)?Tobacco use:?Former smoker ?Additional Findings: Tobacco non-user?Ex-cigarette smoker ???Drugs/Alcohol:?Drugs?Have you used drugs other than those for medical reasons in the past 12 months??No ???Miscellaneous:?Caffeine: yes, frequency: 2 cups a day. ?Children: yes, 5. ?Exercise: yes, gardening/yard work. ?Marital status: . 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 ???Drug/Alcohol:?AUDIT-C (Standard)?Did you have a drink containing alcohol in the past year??No ?Points?0 ?Interpretation?Negative * Medications:?TakingEliquis B erberine Chloride , Notes to Pharmacist: 1200mg/100mgAloe Vera - Gel as directed Externally Ferrous Gluconate 240 (27 Fe) MG Tablet 1 tablet Orally Three times a Week CoQ-10 100 MG Capsule as directed Orally Magnesium [...] Tablet 1 tablet Orally Once a day Medication List reviewed and reconciled with the patientTaking Eliquis Taking Berberine Chloride , Notes to Pharmacist: 1200mg/100mgTaking [...] Tablet 1 tablet Orally Once a day Medication List reviewed and reconciled with the patient * Allergies:?Codeine: rashAdhe sive: rashLatex: rashEggs or Egg-derived Products: rashfeathers: rashpoultryyes[Allergies Verified] Objective: * Vitals:?Ht: 5ft 5in, Wt: 200 , BMI: 33.28, Shoe size: 8, BP: 120/70 mm Hg, BS: not taken, Ht-cm: 165.1 cm, Wt-k.72 kg. * ???Past Orders: ???Lab:HEMOGLOBIN A1C (GLYCO HEMOGLOBIN) (Order Date - 07/03/2024) (Collection Date & Time - 07/03/2024 11:01 AM) ? Value Reference Range ?TOTAL HEMOGLOBIN (HGBA1C) 6.6 * Examination: ???Ophthalmology Referral: ?DIABETES EYE EXAM?Procedure Performed:?Yes ?Date of Exam Performed?02/03/2024 ?Diabetic Retinopathy Screening:?Yes ?Findings of Diabetic Eye Exam:?no retinopathy?General Examination: ?GENERAL APPEARANCE:?Reveals a pleasant, alert, well nourished, well- developed, well hydrated individual, who demonstrates proper attention to hygiene/body habitus, and is in no acute distress, Pt serves as own historian for office visit today.?ORIENTED:?person, place, and time.?Orthopedic: ?MUSCLE STRENGTH:?5/5 all groups in a symmetrical fashion, B/L.?GAIT ABNORMALITY:?antalgic.?DIGITAL DEFORMITIES:?Digital contracture, PIPJ, 2-5 B/L, incompl-reducible with WB, or to push-up test, no over, nor underlapping.?MPJ PATHOLOGY:? Pain, swelling, and inflammation to plantar 2nd right MPJ(s), RIGHT, No MPJ pain with ROM, [ - ] Ecchymosis Pain,swelling and inflammation base of 5th metatarsal right.?Neurological: ?SENSORY:?Neurological exam reveals intact sensorium, pain sensation [...] MTH (s), 2, B/L, SUB 5th MTBase, Right.?Vascular: ?DP PULSES(B):?2/4, B/L.?PT PULSES(B):?2/4, B/L.?CAPILLARY FILL TIME:?immediate, all digits, B/L.?TROPHIC CONDITION-TEXTURE/ELASTICITY/TURGOR/HAIR GROWTH(B):?normal, B/L.?TEMPERTURE GRADIENT(C):?normal, warm to cool, proximal to distal, B/L, B/L.?X-Rays - IMAGING REPORT: ?Clinical Indication(s):? Evaluate for Fracture.?Views:? 3 views of Foot, AP, LAT, LO, RIGHT.?Findings:?normal bone and soft tissue density consistent for patients age and sex , elongated plantarflexed [ 2nd metatarsal with hypertrophied MTH, dorsal degenerative changes of the tarsal joints, hypertrophy of 5th MT Base/Styloid process.?Foot structure:?reveals excess pronation with, anterior break in cyme line.?Digits:?Tad osteony with screw fixation 3rd lateral shift of met head.?HAV:?stephie present proximal phalange (Joselito procedure ) marga head of the 1st with ORIF,, short 1st toe.?Fracture:?Negative fractures identified.? * Physical Examination:?L2999 Supplies:?Including:?REDI-Orthotic B.? Assessment: * Assessment: 1.?Metatarsalgia, right foot - M77.41 (Primary)???Specify :Acute problem, Complicated w/ Multiple Tx Options(4) Dx New problem, Prognosis Uncertain (4)???2.?Pain in right foot - M79.671???3.?Pain in right ankle and joints of right foot - M25.571???4.?Bursitis of intermetatarsal bursa of right foot - M77.51???5.?Plantar flexed metatarsal bone of right foot - M21.6X1???6.?Keratoma - L57.0??? Plan: * Treatment: 2.?Pain in right foot?Imaging: X ray : Foot, right 3V (Performed Date - 07/23/2024)?See Examination above * Procedure Codes:?90227 X-RAY EXAM OF RIGHT FOOT 3V, Modifiers: 26 , RT * Preventive Medicine:? ??Counseling:?Discussion:?-04: Office or other outpatient visit for the evaluation and management of a new patient, which required a medically appropriate history [...] have encouraged the patient to call the office.?BioMech.:?I discussed the Pts foot biomechanics with them and how it relates to their problem, Discussed and reviewed the X-rays with the patient. We discussed how the findings relate to the patients symptoms/complaints. Answered any and all questions., Recommended Topical analgesics including biofreeze/aspercream/Voltaren gel.?Metatarsalgea:?I explained to the patient the possible etiologies of their Metatarsalgea Foot pain, including foot type/shoegear/activity level/exercise routine and the risks/benefits of all the different treatment options for pain including: No treatment at all, Rest, Ice, NSAIDs(only if well tolerated after meals), New/supportive Shoegear, Strappings and Tapings, Foot/Ankle AFO Bracing, Stretching exercises, Deep Tissue Massage, Arch support/shoe inserts, Custom orthoses, Topical analgesics including Aspercream/Voltaren gel, Physical Therapy, Cortisone injection therapy, EPAT/ESWT. Advantages and disadvantages of each option were discussed and the patients questions re: shoegear, custom vs prefabricated inserts, activity level, PO vs Topical medications (and their respective potential complications/drug interactions/side effects), and consistency in home treatment regimens for optimal success were answered to their verbally confirmed satisfaction, Topical analgesics of Aspercream or Voltaren gel,, Fit and dispensed orthoses.?Orthotic Dispensing:?The OTC inserts are properly fitted to the patient's feet in both weight-bearing and non-weight bearing attitudes. The patient was instructed to gradually increase the amount of time they are wearing the orthoses, starting with one hour the first day and thereon progressively increasing the amount of time used until they are comfortable to be worn all day and with all activities. They were asked to call the office if any signs of skin irritation were noted including redness, blistering or callous formation. The patient verbally indicated a full understanding of all the above information.?Orthotics:?I explained to the patient the benefits of OT use. I explained that orthoses are medically necessary to decrease the foot pain through proper mechanical control, support of their foot, decrease pain under the painful metatarsal by supplementing the soft tissue, cushion the forefoot by supplementing the soft tissue, possibly prevent surgery.? * Follow Up:?3 Months * Images: * Sign off status: Completed true * Provider:Tabatha Strickland DPM Date:?2023 Generated for Toy jacobo/Camilla/Darianitting on:?10/28/2024 06:34 PM EST History and Physical Notes * HPI (History of Present Illness) Category Sub-Category Detail Notes Category Not es Foot Pain Nature: sharp Location: Bottom, Forefoot, RI GHT Duration: , several years Course: worse Treatments: rest/alter normal da kamlesh activity, OTC pads, wart removal Misc: previous surgery on right foot- bunion and 3rd metatataral Physical Examination Category Sub-Category Detail Notes Section Note s L2999 Supplies Including: REDI-Orthotic B Examination Category Sub-Category Detail Notes Category Not [...] (s), 2, B/L, SUB 5th MTBase, Right Orthopedic GAIT ABNORMALITY: antalgic DIGITAL DEFORMITIES: Digital contracture , PIPJ, 2-5 B/L, incompl-reducible with WB, or to push-up test, no over, nor underlapping MPJ PATHOLOGY: Pain, swelling, and inflammation to [...] as own historian for office visit today ORIENTED: person, place, and t jose alfredo Ophthalmology Referral DIABETES EYE EXAM Procedure Perform ed:: Yes ?Date of Exam Performed: 02/03/2024 Diabetic Retinopathy Screening:: Yes Findings of Diabetic Eye Exam:: no retin opathy Vascular DP PULSES (B): 2/4, B/L PT PULSES (B): 2/4, B/L CAPILLARY FILL TIME: immediate, all digi ts, B/L TEMPERTURE GRADIENT (C): normal, warm to cool, proximal to distal, B/L, B/L TROPHIC CONDITION-TEXTURE/ELASTICITY/TURGOR/HAIR GROWTH (B): normal, B/L X-Rays - IMAGING REPORT Findings: normal b one and soft tissue density consistent for patients age and sex , elongated plantarflexed [ 2nd metatarsal with hypertrophied MTH, dorsal degenerative changes of the tarsal joints, hypertrophy of 5th MT Base/Styloid process Fracture: Negative fractures i dentified Digits: Tad osteony with sc rew fixation 3rd lateral shift of met head Foot structure: reveals excess prona tion with, anterior break in cyme line HAV: stephie present prox imal phalange (Joselito procedure ) marga head of the 1st with ORIF,, short 1st toe Views: 3 views of Foot, AP, LAT, LO, RIGHT Clinical Indication(s): Evaluate for Fra cture
--- OUTSIDE RECORDS SUMMARY | 2024-10-28 18:35 | XMS_ITS | Encounter Summary ---
Author Organization [facility] Address [address] [place] [address] Care Team Providers Care Vault Attendant Name Role Phone Swathi Delgado MD Primary Care Provider [phone] Encounter Details Date Type Department Care Team ([facility] st Contact Info) Description 11/08/2016 Telephone [facility] [address] [address] Brayan Russo MD [address] [place] [address] Social History Tobacco Use Types Packs/Day Years Used Date Smoking Tobacco: Never Smokeless Tobacco: Never Alcohol Use Standard Drinks/Week Comments Yes 0 (1 standard drink = 0.6 oz pur e alcohol) Comments No Sex and Gender Information Value Date Recorded Sex Assigned at Not on file Legal Sex Female 1:53 AM EDT Gender Identity Not on file Sexual Orientation Not on file documented as of this encounter Miscellaneous Notes * Telephone Encounter - Brenda Arita - 11/08/2016 4:30 PM EST Would like a refferal documented in this encounter Plan of Treatment Not on file documented as of this encounter Visit Diagnoses Not on filedocumented in this encounter Care Teams Vault Attendant Relationship Specialty Start Date End Date Swathi Delgado MD [address] [id number] PCP - General Family Medicine 01/05/14 documented as of this encounter
--- OUTSIDE RECORDS SUMMARY | 2024-10-28 18:35 | XMS_ITS | Encounter Summary ---
Author Organization [facility] Address [address] [place] [address] Care Team Providers Care Job Placement Specialist Name Role Phone Swathi Delgado MD Primary Care Provider [phone] Encounter Details Date Type Department Care Team (Late st Contact Info) Description 07/22/2014 Office Visit NON FC SA NON FC [facility]K [facility], Unknown Provider Social History Tobacco Use Types Packs/Day Years [...] on file documented as of this encounter Discharge Summaries * [facility], Unknown Provider - 07/22/2014 2:25 AM EST ------ Continuity of Care Document ------ Patient STEPHANIE FRITZ Date of 1945 Sex Female Race White Ethnicity Not or Primary Home: [address] Contact info [address] [place] [address] Patient IDs [id number] [place]??[id number] Document Id [id number] Document Created July 22, 2014, 02:10:17, EST Performer Physician Non Staff of [facility] Author [employer] [facility] Contact info aircraft refueler Brayan Russo [address] Contact info [place],??[place]??[address] Telecom information not available aircraft refueler Physician Non Staff Contact info Telecom information not available aircraft refueler UNKNOWN Contact info Telecom information not available Next of kin WILBER FRITZ [address] Contact info [address] [place] [address],??[place]??[address] Telecom information not available Document maintained by [facility] Contact info ----- Table of Contents ----- * Insurance_Providers * Advance_Directives * Problems * Social_History * Plan_of_Care * Functional_Status * Allergies,_Adverse_Reactions,_Alerts * Medications * Vital_Signs * Results * Encounters ---- Insurance_Providers ---- Payer Name Policy Number Subscriber Name Relationship [employer] PREFERRED [id number] STEPHANIE FRITZ SELF ---- Advance_Directives ---- Directive Response Recorded Date/Time Does patient have Health Care Proxy? U 01/04/14 11:04am ---- Problems ---- Medical Problems Problem Onset Date Status Osteoarthritis of right knee Unknown Active Surgical Problems Problem Onset Date Recorded Date/Time Status S/P total knee replacement Unknown 07/19/14 2:22pm Active ---- Social_History ---- Query Response Start Date Stop Date Has patient smoked in the last year (required 13+ y.o.)?: Never smoker ---- Plan_of_Care ---- Discharge Date 07/21/14 2:28pm Disposition HOME WITH APPROVAL Instructions/Education Provided DI for Knee Replacement Prescriptions See Medications Section ---- Functional_Status ---- Query Response Date Recorded Current Bathing/Grooming: INDEPENDENT July 21, 2014 1:08pm Current Dressing ability: INDEPENDENT July 21, 2014 1:08pm Current Feeding ability: INDEPENDENT July 21, 2014 1:08pm Current Toileting ability: INDEPENDENT July 21, 2014 1:08pm Current Functional mobility: INDEPENDENT July 21, 2014 1:08pm Current Cognition/Mental Status: NO ISSUES W/ COGNITION July 21, 2014 1:08pm ---- Allergies,_Adverse_Reactions,_Alerts ---- Allergen Type Severity Reaction Status Last Updated codeine Allergy Unknown PUFFY FACE Active 07/20/14 egg Allergy Unknown Active 07/16/14 chicken derived Allergy Unknown patient has food allergy to chicken Active 07/19/14 ---- Medications ---- Medication Dose Route Sig Days/Qty Instructions Order Date Discontinued Status Date ESTRADIOL (ESTRACE) 1 1 MG ONCE A DAY Active MG TABLET PRAVASTATIN (PRAVACHOL) 20 MG AT BEDTIME Active 20 MG TABLET OMEPRAZOLE (priLOSEC) 20 20 MG ONCE A DAY Active MG CAP MAGNESIUM OXIDE (Magox) 500 MG Active 400 MG TAB ATENOLOL (Tenormin) 25 25 MG ONCE A DAY Active MG TAB MELOXICAM (MOBIC) 15 MG 7.5 MG ONCE A DAY 07/19/14 Discontinued TABLET CALCIUM CARBONATE 600 MG ONCE A DAY Active (TUMS) 500 MG CHEW INJECT AT ENOXAPARIN EVERY 24 SAME TIME (Lovenox) 40 40 MG HOURS 14 Qty DAILY X 14 07/19/14 Active MG INJ DAYS/ STOP DATE:08/03/14 CELECOXIB (celeBREX) 200 MG ONCE A DAY 14 Days 07/19/14 Active 100 MG CAP oxyCODONE EVERY 4 (Immediate 5-10 MG HOURS 60 Qty 07/19/14 Active Release) 5 MG NEEDED PRN TABLET PAIN FERROUS GLUCONATE 324 MG TWICE A DAY 30 Qty 07/19/14 Active (FERGON) 325 MG TAB ACETAMINOPHEN 1,000 MG EVERY 8 30 Qty 07/19/14 Active 500 MG TABLET HOURS DOCUSATE SODIUM 100 MG TWICE A DAY 14 Qty 07/19/14 Active (Colace) 100 MG CAP ---- Vital_Signs ---- Vital Reading Collection Date/Time Result Blood Pressure 07/21/14 1:15pm 135/82 Site 07/21/14 1:08pm LA Temperature 07/21/14 1:15pm 97.9 Temperature Source 07/21/14 1:15pm O Respiration Rate 07/21/14 1:15pm 18 Pulse Rate 07/21/14 1:15pm 74 Pulse Site 07/21/14 1:08pm AVS Pulse Oximetry 07/21/14 1:15pm 95 Height cm 07/19/14 6:59am 165.10 Height Ft 07/19/14 6:59am 5 In 07/19/14 6:59am 5 Weight kgs 07/19/14 6:59am 90.911677 Weight lbs 07/19/14 6:59am 199 Body Mass Index 07/19/14 6:59am 33.1 ---- Results ---- Test Source Date Result Interp. Ref. Range Comments Hematocrit 07/21/14 36.7 % 34.0 - 44.0 Hemoglobin 07/21/14 12.3 g/dL 11.5 - 15.0 Mean Corpuscular Hemoglobin 07/21/14 30 pg 27 - 33 Mean Corpuscular Hemoglobin Concent 07/21/14 34 g/dL 31 - 36 Mean Corpuscular Volume 07/21/14 88 fL 80 - 100 Platelet Count 07/21/14 255 x1000/uL 150 - 450 Red Blood Count 07/21/14 4.15 mil/ul 3.70 - 5.10 Red Cell Distribution Width 07/21/14 13.7 % 11.4 - 14.4 White Blood Count 07/21/14 7.5 x1000/uL 3.9 - 11.0 Anion Gap 07/21/14 7.0 L 8 - 12 BUN/Creatinine Ratio 07/21/14 14 8 - 27 Blood Urea Nitrogen 07/21/14 13 mg/dL 5 - 26 Calcium Level 07/21/14 8.8 mg/dL 8.3 - 10.0 Carbon Dioxide Level 07/21/14 31 mEq/L 20 - 32 Chloride Level 07/21/14 102 mEq/L 96 - 109 Creatinine 07/21/14 0.94 mg/dL 0.5 - 1.5 Estimat Glomerular Filtration Rate 07/21/14 62.3 mL/min > 59 - Estimated GFR () 07/21/14 72.2 mL/min > 59 - Glucose Screen 07/21/14 179 mg/dL H 65 - 99 Potassium Level 07/21/14 3.9 mEq/L 3.5 - 5.5 Sodium Level 07/21/14 140 mEq/L 134 - 144 ---- Encounters ---- Encounter Location Date/Time Discharged Inpatient [facility] 07/21/14 2:28pm Recent Diagnosis Osteoarthritis of right knee documented in this encounter Plan of Treatment Not on file documented as of this encounter Visit Diagnoses Not on filedocumented in this encounter Care Teams Job Placement Specialist Relationship Specialty Start Date End Date Swathi Delgado MD [address] [address] PCP - General Family Medicine 01/05/14 documented as of this encounter
--- OUTSIDE RECORDS SUMMARY | 2024-10-28 18:35 | XMS_ITS | Clinical Summary ---
Author Organization [facility], Address [address] [place] [address] Phone Care Team Providers Care Soldering Machine Operator Name Role Phone Kajal Durán NP Primary Care Provider [phone] Allergies Active Allergy Reactions Criticality Noted Date Comments Chicken Allergy Other (see comments) High 06/11/2004 FACIAL SWELLING/RASPY THROAT Codeine Nausea And Vomiting,Other (see comments) High 03/23/2009 FACIAL/EYES SWELLING Egg Phospholipids 06/11/2004 Vaccines (viruses grown in egg protein) Egg White (Egg Protein) 10/20/2016 Egg-Derived Products Anaphylaxis,Other (see comments) High 01/04/2012 TONGUE/LIPS SEVERELY SWOLLEN Hylan G-F 20 Itching 02/10/2007 Latex Other (see comments),Rash Medium 02/11/2009 Bra-line erythema noted on examination. Highly suspicious for Latex allergy. CONTACT DERMATITIS Nickel 08/31/2019 Other Other (see comments) 08/24/2016 MEDICAL TAPE Poultry Meal 10/20/2016 Medications albuterol HFA (PROVENTIL HFA;VENTOLIN HFA) 108 (90 Base) MCG/ACT inhaler Inhale 2 puffs 1 Active atorvastatin (LIPITOR) 10 MG tablet Take 10 mg by mouth at bed time 1 Active losartan (COZAAR) 100 MG tablet Take 100 mg by mouth 1 (one) time each day 2 Active Azelastine-Flut icasone 137-50 MCG/ACT suspension Administer into affected nostril(s) Active meloxicam (MOBIC) 15 MG tablet Take 15 mg by mouth if needed Active CHELATED ZINC PO Take 1 tablet by mouth 1 (one) time each day Active Turmeric 500 MG capsule Take 1,500 mg by mouth daily Active Cholecalciferol (Vitamin D) 25 MCG (1000 UT) tablet Take 25 mcg by mouth 1 (one) time each day Active co-enzyme Q-10 30 MG capsule Take 300 mg by mouth 1 (one) time each day Active amoxicillin (AMOXIL) 500 MG capsule Take 1 capsule (500 mg total) by mouth in the morning and 1 capsule (500 mg total) in the evening. 14 capsule 2 Active Additional Information Patient taking differently:500 mg Oral 2 times daily,PRN, Reported on 08/14/2022 hydroCHLOROthia zide 12.5 MG tablet Take 1 tablet by mouth once daily 60 tablet 2 Active cyanocobalamin (VITAMIN B-12) 100 MCG tablet Take 1 tablet by mouth in the morning. Active famotidine (PEPCID) 20 MG tablet Take 20 mg by mouth 1 (one) time each day in the evening Active magnesium oxide (MAG-OX) 400 MG tablet Take 400 mg by mouth 1 (one) time each day 5 Active Active Problems Problem Noted Date Diagnosed Date Stage 3a chronic kidney disease 08/14/2022 Essential hypertension 02/05/2022 Mixed hyperlipidemia 06/16/2019 Overview (02/02/2022): Last Assessment & Plan: Stable on current therapies. Continue healthy eating. Benign essential hypertension 10/19/2005 Immunizations Name Administration Dates Next Due PPD Test 09/24/2006 Pfizer SARS-COV-2 11/02/2020,10/12/2020 Pneumococcal Conjugate 13-Valent 08/12/2015 Pneumococcal Polysaccharide 04/26/2022, 7 Shingrix 04/26/2022 Td, Unspecified 09/24/2006 Tetanus 09/24/2006 Family History Medical History Relation Comments Cancer Father 2 Aunt/Breast Heart disease Father 2 NE Dementia Mother 2 also Grandmother Heart disease Sibling Brother/NE Relation Status Comments Father 1 Father 2 Mother 1 Mother 2 Sibling Social History Tobacco Use Types Packs/Day Years Used Date Smoking Tobacco: Former Cigarettes Q uit: 02/05/1970 Comments:Smoking History Inf o:Every day Alcohol Use Standard Drinks/Week Comments Yes 0 (1 standard drink = 0.6 oz pure alcohol) Alcoholic Drinks/day: Occasional social drink Comments Unknown Sex and Gender Information Value Date Recorded Sex Assigned at Female 08/07/2022 8:14 AM EST Legal Sex Female 4:32 PM EST Gender Identity Female 08/07/2022 8:14 AM EST Sexual Orientation Straight 08/07/2022 8: 14 AM EST Last Filed Vital Signs Vital Sign Reading Time Taken Comments Blood Pressure 128/65 02/12/2023 10:31 AM EDT Pulse 66 02/12/2023 10:31 AM EDT Temperature 36.7 ??C (98 ??F) 02/10/2019 12:00 PM EDT Respiratory Rate 14 02/12/2023 10:31 AM EDT Oxygen Saturation - - Inhaled Oxygen Concentration - - Weight 94.3 kg (208 lb) 02/12/2023 10:31 AM EDT Height 165.1 cm (5' 5 ) 02/12/2023 10:31 AM EDT Body Mass Index 34.61 02/12/2023 10:31 AM EDT Plan of Treatment Health Maintenance Due Date Last Done Comments Influenza Vaccine (#1) 2024 Pneumococcal Vaccine: 65+ Years Completed 04/26/2022, 08/12/2015, 09/24/2006 Hepatitis B Vaccine Aged Out No longe r eligible based on patient's age to complete this topic Insurance [facility] Care Teams Soldering Machine Operator Relationship Specialty Start Date End Date Kajal Durán NP 14 [facility] [address] [place] [address] PCP - General 07/07/19
== END 2024-10-28 15:58 | disposition home or self-care (01) ==
PROVIDERS: PCP Nurse Practitioner Adult Health; Visit Provider Nurse Practitioner Family
DX: J45.909 Unspecified asthma, uncomplicated (principal); R06.09 Other forms of dyspnea; R91.8 Other nonspecific abnormal finding of lung field
CPT/HCPCS: 99214

== ENCOUNTER → 2024-10-28 15:02 | Outpatient (BNVA) | payer BC, SELFPAY | PROVIDERS: PCP Nurse Practitioner Adult Health; Visit Provider Nurse Practitioner Family ==

== ENCOUNTER 2025-02-23 10:52 | Outpatient (REF) | payer MEDICARE, SELFPAY ==
--- NOTE | 2025-02-23 10:54 | PFT_ITS ---
Flows: FEV1: 97 % of predicted at 1.95 L FVC: 104 % of predicted at 2.75 L FEV1/FVC: 71 % Bronchodilator response: Present in small to medium airways only Volumes: Total lung capacity: 96 % of predicted at 4.84 L Residual volume: 97 % of predicted at 2.18 L Slow vital capacity: 99 % of predicted at 2.67 L Expiratory reserve volume: 58 % of predicted at 0.39 L Diffusion capacity: Normal Impression: Reversible mild obstructive ventilatory defect with bronchodilator response present in small to medium airways only. Decreased expiratory reserve volume suggests extrathoracic restriction likely secondary to abdominal obesity. MTDD
[2025-02-23 11:32] VITALS: PULSE 84; O2SAT 96
--- OUTSIDE RECORDS SUMMARY | 2025-02-23 12:20 | XMS_ITS | Patient Health Record ---
Author Organization [facility] Address [address] [place] [address] Care Team Providers Care Cut Out Marker Name Role Phone Luis Armando PERALES, Kajal Primary Care Provider Unavail able Black, Elen Unavailable [phone] Allergies Allergen (clinical drug ingredient) Drug/Non Drug [...] Examination above HEMOGLOBIN A1C (GLYCOHEMOGLO BIN) Reviewed date:09/30/2024 09:17:38 AM Interpretation: Performing Lab: Notes/Report: HEMOGLOBIN A1C % (HH) 6.6 HEMOGLOBIN A1C (GLYCOHEMOGLO BIN) Reviewed date:07/23/2024 11:01:54 AM Interpretation: Performing Lab: Notes/Report: TOTAL HEMOGLOBIN (HGBA1C) 6.6 Reason For Referral No Information Medications [...] Problem Acquired hammer toe of right foot (3737726916017385) Other hammer toe(s) (acquired), right foot (M20.41) Active confirmed Problem Acquired hammer toe of left foot (7472608144214572) Other hammer toe(s) (acquired), left foot (M20.42) Active confirmed Problem Type 2 diabetes mellitus without complications (E11.9) Active confirmed Problem 493465278727631 Acquired 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) Active confirmed Problem 055867401 Plantar flexed metatarsal bone of right foot (M21.6X1) Active confirmed Vital Signs Blood pressure diastolic 77 mm Hg 09/30/2024 Height 5ft 5in in 09/30/2024 Blood pressure systolic 120 mm Hg 09/30/2024 Weight 200 lbs 09/30/2024 BMI 33.28 kg/m2 09/30/2024 Procedures Procedure Date Ordered Date Performed Result Body Sit e 50973-AAKZ SKIN LESIONS, 2 TO 4 09/30/2024 N/A Encounters Encounter Location Date Provider Diagnosis [address] [address] 07/23/2024 Elen Black Pain in right foot M79.671 ; Metatarsalgia, right foot M77.41 ; Pain in right ankle and joints of right foot M25.571 ; Bursitis of intermetatarsal bursa of right foot M77.51 ; Plantar flexed metatarsal bone of right foot M21.6X1 and [facility]at[facility] L57.[facility] [address] 09/30/2024 Elen Black Pain in right foot [...] E11.9 and Acquired unequal limb length M21.[address] [address] 07/23/2024 [facility] [address] 11/26/2024 [facility] [address] 11/27/2024 Elen Black Assessments Encounter Date Diagnosis (ICD [...] Treatment Pending Test Test Name Order Date 59045-OEAO SKIN LESIONS, 2 TO 4 09/30/19 25 Next Appt Details Provider Name:Elen Strickland , 03/23/2025 09:15:00 AM, [address], [place], [address], Insurance Providers Payer Name Payer Address Payer Phone Subscriber Number Group Number Insured Name Patient Relationship to Insured Coverage Start Date Coverage End Date Blue[employer] 65 Medicare Preferred [address] [place] [address] [id number] Gay Martineza Self - patient is the insured Medical [...]
== END 2025-02-23 10:53 | disposition home or self-care (01) ==
LOC: HO.RESP 10:52
PROVIDERS: PCP Nurse Practitioner Adult Health; Visit Provider Nurse Practitioner Family
DX: J45.909 Unspecified asthma, uncomplicated (principal)
CPT/HCPCS: 94010; 94640; 94727; 94729

== ENCOUNTER → 2025-02-23 10:54 | Outpatient (BNV) | payer MEDICARE, SELFPAY | PROVIDERS: PCP Nurse Practitioner Adult Health; Visit Provider Internal Medicine Pulmonary Disease | DX: J66.8 Airway disease due to other specific organic dusts (principal) | CPT/HCPCS: 94060; 94727; 94729 ==

== ENCOUNTER 2025-04-27 10:51 | Outpatient (AMB) | payer BC, SELFPAY ==
--- OUTSIDE RECORDS SUMMARY | 2021-07-28 12:00 | XMS_ITS | Encounter Summary ---
Author Organization [facility] Address [address] [place] [id number] Phone Care Team Providers Care Protection Officer Name Role Phone Kishor Ventura MD Unavailable [phone] Kajal Durán NP Primary Care Provider [phone] Encounter Details Date Type Department Care Team (Late st Contact Info) Description 07/28/2021 11:00 AM EST Hospital Encounter [facility] [address] [place] [id number] Farheen Reyes, FEEDER TENDER [address] [place] [address] Social History Tobacco Use Types Packs/Day Years Used Date Smoking Tobacco: Former Cigarettes 3 5 1 965 - 1970 Smokeless Tobacco: Never Alcohol Use Standard Drinks/Week Comments Yes 0 (1 standard drink = 0.6 oz pur e alcohol) rare, maybe once a month Education Answer Date Recorded Are you interested in more education? Not on marlys e 12/29/2022 Are you concerned about learning? Not on file 12/29/2022 No 12/29/2022 No 12/29/2022 Digital Access Answer Date Recorded No 01/22/2023 No 01/22/2023 Reliable internet access at home? Not on file 01/22/2023 Device with a working camera? Not on file Intimate Partner Violence Answer Date R ecorded Are you denied basic needs s uch as food, clothing, or medical care? No 03/21/2025 In the past 12 months have y ou been in a relationship with a person who hurts, threatens, or tries to control you? No 03/21/2025 Are you denied basic needs s uch as food, clothing, or medical care? No 03/21/2025 In the past 12 months have y ou been in a relationship with a person who hurts, threatens, or tries to control you? No 03/21/2025 Comments No Sex and Gender Information Value Date Recorded Sex Assigned at Female 08/31/2019 2:13 PM EST Legal Sex Female 6:22 PM EST Gender Identity Female 08/31/2019 2:13 PM EST Sexual Orientation Straight 08/31/2019 2: 13 PM EST documented as of this encounter Functional Status * Calculated C-SSRS Risk Score (Lifetime/Recent) Answer Date of Assessment Author No Risk Indicated 03/21/2025 8:49 PM EDT Kathie Healy RN * [place] Suicide Severity Rating Scale (Screener/Recent Self-Report) Question Answer Date of Assessment Author 1. Wish to be (Past 1 Month) No 03/21/2025 8:49 PM EDT Kathie Healy RN 2. Non-Specific Active Suicidal Thoughts (Past 1 Month) No 03/21/2025 8:49 PM EDT Kathie Healy RN 6. Suicidal Behavior (Lifetime) No 03/21/2025 8:49 PM EDT Kathie Healy RN documented as of this encounter Plan of Treatment Upcoming Encounters Date Type Department Care Team (Late st Contact Info) Description 04/28/2025 10:15 AM EDT Appointment [facility], [facility] [address] [address] Kajal Durán NP 14 [facility] [address] [place] [phone] [email or web address] 05/10/2025 9:20 AM EDT Office Visit [facility] [address] [place] [address] Kajal Durán NP 14 [facility] [address] [place] [address] 05/10/2025 10:00 AM EDT Office Visit [facility] [address] [place] [address] Philipp Almonte, ANÍBALBS [address] [place] [address] [email or web address] 11/02/2025 9:10 AM EST Office Visit [facility] Internal Medicine 14 [facility] [address] [place] [address] Kajal Durán, ANGELLA 14 [facility] [address] [place] [address] documented as of this encounter Procedures Procedure Name Priority Date/Time Associated Diagnosis Comments XR CHEST PA AND LATERAL 2 VIEWS Urgent/patient waiting 07/28/2021 11:09 AM EST Cough documented in this encounter Results * XR CHEST PA AND LATERAL 2 VIEWS (07/28/2021 11:09 AM EST) Anatomical Region Laterality Modality Chest Computed Radiogr aphy 07/28/2021 11:2 3 AM EST Impressions 07/28/2021 11:29 AM EST No acute abnormality. Reticular opacities at the left lung base most likely reflect atelectasis, similar to priors. ATTESTATION: I, Lopez Gomez as teaching physician, have reviewed the images for this case and if necessary edited the report originally created by Sim Rodas. Narrative 07/28/2021 11:29 AM EST XR CHEST PA AND LATERAL 2 VIEWS COMPARISON: XR CHEST PA AND LATERAL 2 VIEWS ; CT ANGIO CHEST WITH CONTRAST FINDINGS: Devices/Tubes/Lines: None. Lungs: Reticular opacities at the left lung base are similar to priors. No focal consolidation or pulmonary edema. Pleura: No pleural effusion or pneumothorax. Heart/Mediastinum: The heart and mediastinum are normal. Bones/Soft Tissues: No acute skeletal abnormality. Procedure Note Lopez Gomez, DO - 07/28/2021 XR CHEST PA AND LATERAL 2 VIEWS COMPARISON: XR CHEST PA AND LATERAL 2 VIEWS ; CT ANGIO CHESTWITH CONTRAST FINDINGS: Devices/Tubes/Lines: None. Lungs: Reticular opacities at the left lung base are similar to priors. Nofocal consolidation or pulmonary edema. Pleura: No pleural effusion or pneumothorax. Heart/Mediastinum: The heart and mediastinum are normal. Bones/Soft Tissues: No acute skeletal abnormality. IMPRESSION: No acute abnormality. Reticular opacities at the left lung base mostlikely reflect atelectasis, similar to priors. ATTESTATION: I, Lopez Gomez as teaching physician, have reviewed theimages for this case and if necessary edited the report originally createdby Sim Rodas. Farheen Reyes FEEDER TENDER IMG XR CHEST Final Resul t documented in this encounter Visit Diagnoses Not on filedocumented in this encounter Additional Health Concerns Infection Onset Date Last Indicated Resolved Time CoV-Exposed Comment:Positive COVID-19 07/21/2021 07/21/2021 07/29/2021 12: 56 PM EST CoV-Presumed Comment:COVID-19 Added 07/22/2021 07/21/2021 07/29/2021 12:56 PM EST CoV-Risk 07/28/2021 07/28/2021 07/29/2021 12:5 6 PM EST COVID-19 07/28/2021 07/28/2021 08/18/2021 1:23 AM EST CoV-Presumed 09/04/2022 09/04/2022 09/25/2022 1:22 AM EST COVID-19 08/17/2024 08/17/2024 09/07/2024 1:21 AM EST Assessment Noted Time PHQ-2 Depression Total Score: 2 08/06/20 10:40 AM EST documented as of this encounter Care Teams Protection Officer Relationship Specialty Start Date End Date Kajal Durán NP 14 [facility] [address] [place] [address] [email or web address] PCP - General Internal Medicine 09/21/19 09/04/21 Kishor Ventura MD [address] [place] [address] [address] [place] [address] [email or web address] Insurance Assigned Provider Internal Medicine 03/18/19 documented as of this encounter Additional Source Comments The information contained in this document represents components of the legal health record. It is not the complete legal health record.[facility]
--- OUTSIDE RECORDS SUMMARY | 2024-12-08 04:15 | XMS_ITS ---
Author [facility] Address [address] [place] [address] Care Team Providers Care Bindery Worker Name Role Phone Luis Armando PERALES, Kajal Primary Care Provider Unavail able Elen Strickland Unavailable [phone] Encounters Encounter Location Date Provider Diagnosis [address] [address] 12/08/2024 Elen Strickland Plan Of Treatment Next Appt Details Provider Name:Elen Agudelo Marco A , 06/04/2025 10:15:00 AM, [address] [place] [address], [phone], Progress Notes * Cesia MARTINEZ PDOB:[birth year] (79 yo F)Acc No.[id number]:12/08/2024 Progress Note Patient: Amy Cesia RENEE Provider: Murtaza Strickland DPM :1945 A ge:79 Y S ex:Female Date:12/08/2024 Address:[address], [place] Pcp:Kajal Durán NP Subjective: * Chief Complaints: * * Medical History: Objective: * Vitals: Assessment: Plan: * Treatment: * Images: * The named appointment provid er may or may not be the originator of this progress note, and it is not deemed complete until electronically signed by the appointment provider. Sign off status: Pending * Provider: Murtaza Strickland DPM Date: 0 12/08/2024 Generated for Toy jacobo/Camilla/Thania on: 0 04/27/2025 11:43 AM EDT
--- OUTSIDE RECORDS SUMMARY | 2025-03-23 05:15 | XMS_ITS ---
Author Organization [facility] Address [address] [place] [address] Care Team Providers Care Adult Care Manager Name Role Phone Luis Armando PERALES, Kajal Primary Care Provider Unavail able Elen Strickland Unavailable [phone] Encounters Encounter Location Date Provider Diagnosis [address] [address] 03/23/2025 Elen Strickland Plan Of Treatment Next Appt Details Provider Name:Elen Agudelo Marco A , 06/04/2025 10:15:00 AM, [address] [place] [address], [phone], Progress Notes * Cesia MARTINEZ PDOB:[birth year] (79 yo F)Acc No.[id number]:03/23/2025 Progress Note Patient: Amy Cesia RENEE Provider: Murtaza Strickland DPM :1945 A ge:79 Y S ex:Female Date:03/23/2025 Address:[address], [place] Pcp:Kajal Durán NP Subjective: * Chief Complaints: * * Medical History: Objective: * Vitals: Assessment: Plan: * Treatment: * Images: * The named appointment provid er may or may not be the originator of this progress note, and it is not deemed complete until electronically signed by the appointment provider. Sign off status: Pending * Provider: Murtaza Strickland DPM Date: 0 03/23/2025 Generated for Toy jacobo/Camilla/Thania on: 0 04/27/2025 11:42 AM EDT
[2025-04-27 11:08] VITALS: BP 134/78; PULSE 78; O2SAT 94; BMI 31.6
--- NOTE | 2025-04-27 11:08 | MHC.OFFVIS ---
Vital Signs 04/27/25 11:08 Height 5 ft 5 in Weight 190 lb BMI 31.6 BP 134/78 Blood Pressure Location Rt brachial Position Sitting Pulse 78 Pulse Source Pulse Oximeter Pulse Oximetry (%) 94 Oxygen Delivery Method Room Air Intake Visit Reasons: noelle Hand Stitcher Required: No Accompanied by: Spouse Allergies codeine Allergy (Severe, Verified 04/27/25 11:13) hives latex Allergy (Severe, Uncoded 04/27/25 11:13) hives Poultry Allergy (Severe, Uncoded 04/27/25 11:13) hives Medication List - Last Reconciled 04/27/25 by Yessica Oliveros, ITZ albuterol sulfate 90 mcg/actuation 2 puffs inhalation Q4-6H PRN albuterol sulfate 90 mcg/actuation 2 puffs inhalation Q4-6H PRN amlodipine 5 mg PO DAILY atorvastatin 40 mg PO DAILY coenzyme Q10 (Co Q-10) 200 mg PO DAILY famotidine 40 mg PO DAILY PRN ipratropium bromide 2 sprays intranasal BID melatonin 10 mg PO BEDTIME PRN meloxicam 15 mg PO DAILY PRN metoprolol succinate ER 25 mg PO QDAY omeprazole 20 mg PO DAILY PRN warfarin 2.5 mg PO DAILY zinc 22 mg PO DAILY HPI HPI noelle: Details: Cesia is a pleasant 79 year old female, former 10 pack year smoker, quit 50+ years ago with underlying asthma, tachycardia maintained on metoprolol, under the care of cardiology, Factor V mutation on Warfarin, GERD, and history of CVA maintained on ASA. Since last visit patient has had multiple left lower extremity DVTs despite being on Eliquis and recently switched to warfarin as well as significant increase in platelets. She has upcoming evaluation with hematology through [facility]. She previously underwent home sleep study which was negative for obstructive events or nocturnal hypoxemia has since discontinued CPAP therapy. She does report increased nighttime awakening since discontinuing, but not interested in repeat sleep study. She reports ongoing symptoms of asthma including dyspnea and coughing it is however is reluctant to use albuterol MDI or daily maintenance therapy. Today she presents to review PFT results. Of note, she does report ED evaluation at [facility] for sudden-onset chest tightness/discomfort with associated dyspnea, reportedly no findings. No report available today. Prior revealed several small bilateral pulmonary and pleural-based nodules from 08/[address] and will have repeat chest CT scheduled for August 2025. [facility] Social History Patient Tobacco Use Status: Former Tobacco user Tobacco use type: Cigarette Cigarette Packs Per Day: 1 Years Smoked: 7 Review of Systems Const Denies chills, Denies excessive sweating, Denies fever(s), Denies headache(s) and Denies night sweats Eyes Denies dry eyes, Denies irritation and Denies itchy eyes ENT Reports Normal hearing present, Denies headache(s), Denies nasal congestion, Denies nasal discharge, Reports post nasal drip and Denies sore throat Card Denies chest pain, Denies chest pain at rest, Denies chest pain with activity, Denies claudication, Denies leg edema, Reports dyspnea on exertion, Denies orthopnea and Denies paroxysmal nocturnal dyspnea Resp Denies chest congestion, Reports cough, Denies excessive phlegm production, Denies pain on inspiration, Denies pain with cough, Reports dyspnea on exertion, Denies stridor and Denies wheezing Musc Denies myalgias Neuro Reports Normal hearing present and Denies headache(s) Endo Denies excessive sweating Juan Manuel/Lymph Denies lymphadenopathy Aller/Immun Denies itchy eyes and Denies wheezing Physical Exam Vital Signs: Last Vital Signs Pulse 78 04/27/25 11:08 BP 134/78 04/27/25 11:08 Pulse Ox 94 04/27/25 11:08 Oxygen Delivery Method Room Air 04/27/25 11:08 BMI result Body Mass Index 31.6 Const General: cooperative, healthy appearing, comfortable, no acute distress, well developed and alert Nutritional Appearance: obese Orientation/consciousness: patient oriented x3 Limitations: no limitations HEENT Head: Yes normal to inspection, Yes normocephalic and Yes atraumatic Ears: hearing grossly normal bilaterally and external ears normal Eyes General: appearance normal, both eyes and all related structures Eyelids: Yes eyelids normal Sclerae: sclerae normal EOM: EOMs intact bilaterally Neck Neck: Yes normal visual inspection and Yes no lymphadenopathy Lymphatic: no lymphadenopathy noted Chest Chest palpation & inspection: normal inspection of the chest Resp Effort & Inspection: normal respiratory effort, able to speak in complete sentences, no audible wheezes, no cough, no stridor, not tachypneic, no tripod positioning and no use of accessory muscles Auscultation: clear to auscultation bilaterally Cardio Jugular venous distension: no JVD Rate: regular rate Rhythm: regular rhythm Skin Other: warm, dry General skin exam: no rashes or lesions noted Neuro General: patient oriented x3 Cranial nerves: Yes Normal hearing present Cognition (Neuro): normal cognition Gait exam (Neuro): Normal gait present Extrem General: Yes normal to inspection, Yes capillary refill normal, Yes no clubbing, cyanosis or edema and Yes no pedal edema Psych Appearance: grossly normal and well kempt Speech and movement: Normal speech and movement present and Clear speech present Affect: normal affect Attitude: cooperative Thought process: Normal thought process present Thought content: Normal thought content present Insight: Good insight present (Psych) Judgement: Good judgement present (Psych) Assessment & Plan Assessment & Plan (1) Asthma: Code(s): J45.909 - Unspecified asthma, uncomplicated Category: Medical (2) Dyspnea on exertion: Code(s): R06.09 - Other forms of dyspnea Category: Medical (3) Multiple pulmonary nodules: Code(s): R91.8 - Other nonspecific abnormal finding of lung field Category: Medical Plan Reviewed PFT which revealed reversible mild obstructive ventilatory defect with bronchodilator response present in small to medium airways only. Decreased expiratory reserve volume suggests extrathoracic restriction likely secondary to abdominal obesity. Diffusion capacity low normal. We reviewed these findings in combination with persistent respiratory symptoms and potential benefit from a daily maintenance inhaler however she would like to hold off at this time. She is reluctant due to prior occurrences of thrush despite good oral hygiene. We did discuss refilling albuterol MDI to use as needed which she was in agreement. Prior chest CT noted pulmonary nodules and will have upcoming chest CT in August 2025 to assess stability. In regards to obstructive sleep apnea, last sleep study is negative for obstructive events or nocturnal hypoxemia but patient continues to report non restorative sleep and poor sleep patterns. Discussed repeating sleep study however should like to hold off at this time. All questions were answered and patient is in agreement of plan. Will follow-up in 3-6 months or sooner if needed. Medications: Refilled albuterol sulfate 90 mcg/actuation 2 puffs inhalation Q4-6H PRN 8.5 grams 2RF shortness of breath or wheezing Coding Level of Care Code Est Pt Level 4 (72479) Diagnoses Asthma J45.909 Dyspnea on exertion R06.09 Multiple pulmonary nodules R91.8
--- OUTSIDE RECORDS SUMMARY | 2025-04-27 11:41 | XMS_ITS | Encounter Summary ---
Author Organization [facility] Address [address] [place] [address] Phone Care Team Providers Care Classified Ad Taker Name Role Phone Kishor Ventura MD Unavailable [phone] Kajal Durán NP Primary Care Provider [phone] Kishor Ventura MD Unavailable [phone] Philipp Almonte MBBS Unavailable Valeri López RN Unavailable [phone] Reason for Referral * Consultation (Within 1 month) - New Request Specialty Diagnoses / Procedures Referred By Yumiko winters Referred To Contact Diagnoses Thrombophilia Rachell Reed CNP [address] [place] [address] Phone: tel: fax: [email or web address] Referral ID Status Reason Start Date Expiration Date V isits Requested Visits Authorized [id number] New Request 04/20/2025 04/20/2026 1 1 Encounter Details Date Type Department Care Team (Late st Contact Info) Description 04/20/2025 Telephone B [facility] [address] [place] [address] Rachell Reed CNP [address] [place] [address] [phone] (work) [email or web address] Social History Tobacco Use Types Packs/Day Years [...] PM EST documented as of this encounter Progress Notes * Kajal Durán NP - 04/20/2025 4:32 PM EDT Okay I am aware * Carisa Finch RN - 04/20/2025 12:37 PM EDT Call made to Cesia. Reviewed message and results. She had a telemed appointment with Dr Pena 02/24. She was bridged to Coumadin and advised to f/u with him in 4-6 weeks. No appointment for f/u was scheduled. Staff message sent to Hem/Onc RN/FD to schedule. * Suzanne Hayes MA - 04/20/2025 12:18 PM EDT Patient is returning [facility] providers call * Rachell Reed CNP - 04/20/2025 10:59 AM EDT Images from the original note were not included. [facility] CLINIC SUPPORT Situation/Background Patient recently had virtual visit with provider Christine for leg cramping, attempted to call patient to review results via phone patient did not answer I left a message inviting patient to call back our office. Assessment/Recommendation Nursing staff, if patient calls back please relay the following information and instructions: Repeat labs show a normal magnesium therefore not contributing to her leg cramps, her kidney function hasreturned to baseline she should continue to remain hydrated throughout the day. Her platelet count continues to elevate so I would recommend her seeing hematology for this, will place referral now Rachell Reed CNP Virtual Clinic Support 04/20/25 10:59 AM documented in this encounter Plan of Treatment Upcoming Encounters Date Type Department Care Team (Late st Contact Info) Description 04/28/2025 10:15 AM EDT Appointment [facility] - [address] [address] Kajal Durán, ANGELLA [address] [place] [address] 05/10/2025 9:20 AM EDT Office Visit Anticoagulation Clinic [address] [place] [phone] Kajal Durán NP [address] [address] [email or web address] 05/10/2025 10:00 AM EDT Office Visit [facility] at [address] [address] Philipp Almonte MBBS [address] [place] [address] [email or web address] 11/02/2025 9:10 AM EST Office Visit [facility] Internal Medicine [address] [place] [phone] Kajal Durán NP [address] [place] [address] [email or web address] Scheduled Referrals Name Type Priority Associated Diagnoses Order Schedule Ambulatory referral to External Hematology Services Outpatient Referral Routine Thrombophilia Ordered: 04/20/2025 documented as of this encounter Visit Diagnoses Diagnosis Thrombophilia- Primary Other and unspecified coagulation defects documented in this encounter Additional Health Concerns Assessment Noted Time PHQ-2 Depression Total Score: 0 04/07/20 9:25 AM EDT documented as of this encounter Care Teams Classified Ad Taker Relationship Specialty Start Date End Date Kajal Durán NP [address] [place] [phone] [email or web address] PCP - General Internal Medicine 12/25/21 Kishor Ventura MD [address] [place] [address] [email or web address] Insurance Assigned Provider Internal Medicine 03/18/19 Kishor Ventura MD [address] [place] [phone] [email or web address] Insurance Assigned Provider Internal Medicine 12/25/21 Philipp Almonte MBBS [address] [place] [phone] [email or web address] Internal Medicine 02/10/25 Valeri López RN [address] [place] [address] [email or web address] Registered Nurse 03/15/25 documented as of this encounter Additional Source Comments The information contained in this document represents components of the legal health record. It is not the complete legal health record.[facility]
--- OUTSIDE RECORDS SUMMARY | 2025-04-27 11:41 | XMS_ITS | Encounter Summary ---
Author Organization [facility] Address [address] [place], [place] [address] Phone Care Team Providers Care Sales And Production Manager Name Role Phone Kajal Durán LIGHTNING ROD INSTALLER Primary Care Provider Kishor Ventura MD Primary Care Provider [phone] Kajal Durán NP Primary Care Provider Kishor Ventura MD Unavailable [phone] Kishor Ventura MD Primary Care Provider [phone] Kajal Durán NP Primary Care Provider Kishor Ventura MD Primary Care Provider [phone] Kajal Durán LIGHTNING ROD INSTALLER Primary Care Provider Kishor Ventura MD Unavailable [phone] Philipp Almonte Unavailable [phone] Valeri López RN Unavailable [phone] Encounter Details Date Type Department Care Team (Latest Contact Info) Description 02/10/2019 Transcribe Orders [facility] Laboratory [address] [place], [place] [id number] Eden Cheney MD 51 [facility], [address] [place], [place] [address] Stage 5 chronic kidney disease not on chronic dialysis (Primary Dx) Social History Tobacco Use Types Packs/Day Years Used Date Smoking Tobacco: Former Cigarettes 3 5 1 965 - 1970 Smokeless Tobacco: Never Alcohol Use Standard Drinks/Week Comments Yes 0 (1 standard drink = 0.6 oz pure alcohol) a couple of beers or a glass of wine a month Comments No Sex and Gender Information Value Date Recorded Sex Assigned at Female 08/31/2019 2:13 PM EST Legal Sex Female 6:22 PM EST Gender Identity Female 08/31/2019 2:13 PM EST Sexual Orientation Straight 08/31/2019 2: 13 PM EST documented as of this encounter Plan of Treatment Upcoming Encounters Date Type Department Care Team (Late st Contact Info) Description 04/28/2025 10:15 AM EDT Appointment [facility], [address] [address] Kajal Durán NP [address] [address] 05/10/2025 9:20 AM EDT Office Visit Anticoagulation Clinic [address] [place] [address] Kajal Durán NP [address] [place] [address] 05/10/2025 10:00 AM EDT Office Visit [facility] at [address] [address] Philipp Almonte MBBS [address] [place] [address] [email or web address] 11/02/2025 9:10 AM EST Office Visit [facility] [place] [facility] [address] [address] Kajal Durán NP [address] [address] documented as of this encounter Results * TOTAL PROTEIN CREATININE RATIO, RANDOM URINE (02/10/2019 2:42 PM EDT) URINE TOTAL PROTEIN 5.9 mg/dL [facility] URINE CREATININE 133 mg/dL [facility] URINE TP CRE RATIO 0.04 0 - 0.19 [facility] Urine (Urine) 02/10/2019 2:4 2 PM EDT 02/10/2019 5:10 PM EDT us Eden Cheney MD URINE ORDERABLES Final Result [address] [address] * (ABNORMAL) CBC and differential (02/10/2019 2:39 PM EDT) WBC 7.83 3.40 - 11.20 K/uL [facility] RBC 4.79 3.80 - 4.80 M/uL [facility] HGB 14.3 12.0 - 15.0 g/dL [facility] HCT 42.2 36.0 - 46.0 % [facility] PLT 373 130 - 400 K/uL [facility] MCV 88.1 79.0 - 98.0 [facility] MCH 29.9 27.0 - 34.8 pg [facility] MCHC 33.9 31.5 - 36.0 g/dL [facility] RDW 13.2 10.8 - 14.6 % [facility] MPV 10.6 9.4 - 12.4 [facility] NRBC 0.00 0.00 /100 WBCs [facility] ABSOLUTE NRBC 0.00 0.00 K/uL [facility] DIFF METHOD Auto [facility] NEUTS 64.1 45.30 - 77.70 % [facility] LYMPHS 23.2 12.30 - 39.70 % [facility] MONOS 9.2 4.10 - 12.80 % [facility] EOS 2.7 0 - 7.2 % [facility] BASOS 0.5 0 - 2.80 % [facility] Granulocytes, immature (%) 0.3 0.0 - 0.9 % [facility] ABSOLUTE NEUTS 5.02 1.40 - 7.70 K/uL [facility] ABSOLUTE LYMPHS 1.82 0.60 - 3.20 K/uL [facility] ABSOLUTE MONOS 0.72(H) 0.11 - 0.59 K/uL [facility] ABSOLUTE EOS 0.21 0.01 - 0.50 K/uL [facility] ABSOLUTE BASOS 0.04 0.00 - 0.08 K/uL [facility] Granulocytes, immature 0.02 0.00 - 0.05 K/uL [facility] Blood 02/10/2019 2:39 PM EDT 02/10/2019 2:43 PM EDT Eden Cheney MD LAB BLOOD ORDERABLES Final Re sult Performing Organization Address [facility] Co de Phone Number [address] [address] * Albumin (02/10/2019 2:39 PM EDT) ALBUMIN 4.0 3.9 - 4.8 g/dL [facility] Blood 02/10/2019 2:39 PM EDT 02/10/2019 2:43 PM EDT Eden Cheney MD LAB BLOOD ORDERABLES Final Re sult Performing Organization Address City/[facility]/ZIP Co de Phone Number [address] [address] * Magnesium (02/10/2019 2:39 PM EDT) MAGNESIUM 2.1 1.6 - 2.6 mg/dL [facility] Blood 02/10/2019 2:39 PM EDT 02/10/2019 2:43 PM EDT Eden Cheney MD LAB BLOOD ORDERABLES Final Re sult [address] [address] * Phosphorus (02/10/2019 2:39 PM EDT) Pathologist [facility] PHOSPHORUS 4.0 2.7 - 4.5 mg/dL [facility] Blood 02/10/2019 2:39 PM EDT 02/10/2019 2:43 PM EDT Eden Cheney MD LAB BLOOD ORDERABLES Final Re sult Performing Organization Address [facility]/ZIP Co de Phone Number [address] [address] * (ABNORMAL) Basic metabolic panel (02/10/2019 2:39 PM EDT) [facility] SODIUM 141 133 - 146 mmol/L [facility] CHLORIDE 102 96 - 108 mmol/L [facility] POTASSIUM 4.2 3.3 - 5.1 mmol/L [facility] CO2 27 21 - 35 mmol/L [facility] BUN 22(H) 6 - 19 mg/dL [facility] CREATININE 1.20 0.5 - 1.5 mg/dL [facility] GLUCOSE 111(H) 70 - 99 mg/dL [facility] CALCIUM 9.5 8.4 - 10.3 mg/dL [facility] EGFR 45(L) >59 mL/min/1.7 3m2 [facility] Comment:If patient is black, multiply result by 1.159. Estimated glomerular filtration rate calculated using the CKD-EPI equation. ANION GAP 16 10 - 20 mmol/L [facility] Blood 02/10/2019 2:39 PM EDT 02/10/2019 2:43 PM EDT Eden Cheney MD LAB BLOOD ORDERABLES Final Re sult Performing Organization Address [facility]/ZIP Co de Phone Number [address] [address] * Parathyroid hormone (PTH) (02/10/2019 2:39 PM EDT) Pathologist [facility] PARATHYROID HORMONE 47 15 - 65 pg/mL [facility] Blood 02/10/2019 2:39 PM EDT 02/10/2019 2:43 PM EDT us Eden Cheney MD LAB BLOOD ORDERABLES Final Re sult [facility] [address] [place] [address] documented in this encounter Visit Diagnoses Diagnosis Stage 5 chronic kidney disease not on chronic dialysis- Primary documented in this encounter Additional Health Concerns Infection Onset Date Last Indicated Resolved Time CoV-Exposed Comment:Positive COVID-19 07/21/2021 07/21/2021 07/29/2021 12: 56 PM EST CoV-Presumed Comment:COVID-19 Added 07/22/2021 07/21/2021 07/29/2021 12:56 PM EST CoV-Risk 07/28/2021 07/28/2021 07/29/2021 12:5 6 PM EST COVID-19 07/28/2021 07/28/2021 08/18/2021 1:23 AM EST CoV-Presumed 09/04/2022 09/04/2022 09/25/2022 1:22 AM EST COVID-19 08/17/2024 08/17/2024 09/07/2024 1:21 AM EST documented as of this encounter Care Teams Sales And Production Manager Relationship Specialty Start Date End Date Kajal Durán NP [address] [place] [phone] [email or web address] PCP - General Internal Medicine 12/31/18 02/11/19 Kishor Ventura MD [address] [place] [phone] [email or web address] PCP - General Internal Medicine 02/12/19 03/17/19 Kajal Durán NP [address] [place] [address] [place] [address] [email or web address] PCP - General Internal Medicine 03/18/19 06/15/19 Kishor Ventura MD [address] [place] [phone] [email or web address] PCP - General Internal Medicine 06/16/19 09/20/19 Kajal Durán NP [address] [place] [address] [place] [address] [email or web address] PCP - General Internal Medicine 09/21/19 09/04/21 Kishor Ventura MD [address] [place] [address] [email or web address] PCP - General Internal Medicine 09/05/21 12/24/21 Kajal Durán NP [address] [place] [phone] [email or web address] PCP - General Internal Medicine 12/25/21 Kishor Ventura MD [address] [place] [address] [place] [address] [email or web address] Insurance Assigned Provider Internal Medicine 03/18/19 Kishor Ventura MD [address] [place] [address] [email or web address] Insurance Assigned Provider Internal Medicine 12/25/21 Philipp Almonte MBBS [address] [place] [address] [email or web address] Internal Medicine 02/10/25 Valeri López RN [address] [place] [phone] [email or web address] Registered Nurse 03/15/25 documented as of this encounter Additional Source Comments The information contained in this document represents components of the legal health record. It is not the complete legal health record.[facility]
--- OUTSIDE RECORDS SUMMARY | 2025-04-27 11:42 | XMS_ITS | Encounter Summary ---
Author Organization [facility] Address [address] [place] [address] Phone Care Team Providers Care Hides And Skins Colorer Name Role Phone Stefania Barton CNP Primary Care Provider + Swathi Delgado MD Primary Care Provider [phone] Kajal Durán ALLIANCE DIRECTOR Primary Care Provider Kishor Ventura MD Primary Care Provider [phone] Kajal Durán NP Primary Care Provider Kishor Ventura MD Unavailable [phone] Kishor Ventura MD Primary Care Provider [phone] Kajal Durán NP Primary Care Provider Kishor Ventura MD Primary Care Provider [phone] Kajal Durán ALLIANCE DIRECTOR Primary Care Provider Kishor Ventura MD Unavailable [phone] Philipp Almonte Unavailable Valeri López RN Unavailable [phone] Encounter Details Date Type Department Care Team (Late st Contact Info) Description 12/04/2017 Ancillary Orders Virtual Department [address] [place] [address] Stefania Barton CNP [address] [place] [phone] [email or web address] Breast screening Social History Tobacco Use Types Packs/Day Years Used Date Smoking Tobacco: Never Assessed Comments Unknown Sex and Gender Information Value Date Recorded Sex Assigned at Female 08/31/2019 2:13 PM EST Legal Sex Female 6:22 PM EST Gender Identity Female 08/31/2019 2:13 PM EST Sexual Orientation Straight 08/31/2019 2: 13 PM EST documented as of this encounter Plan of Treatment Upcoming Encounters Date Type Department Care Team (Late st Contact Info) Description 04/28/2025 10:15 AM EDT Appointment [facility] - [address] [address] Kajal Durán NP [address] [address] 05/10/2025 9:20 AM EDT Office Visit Anticoagulation Clinic [address] [place] [address] Kajal Durán NP [address] [address] 05/10/2025 10:00 AM EDT Office Visit [facility] Center at [address] [address] Philipp Almonte MBBS [address] [place] [address] [email or web address] 11/02/2025 9:10 AM EST Office Visit [facility] [place] [facility] 14 [facility] [address] [place] [address] Kajal Durán NP [address] [address] documented as of this encounter Results * BI MAMMOGRAM SCREENING WITH TOMOSYNTHESIS WITH CAD (BILATERAL) (06/18/2018 3:12 PM EDT) Anatomical Region Laterality Modality Breast Left, Breast Right, Breast Bilateral Bila teral Mammography 06/19/2018 11:1 9 AM EDT Impressions 06/19/2018 11:27 AM EDT BILATERAL BREASTS: Benign, no evidence of malignancy. Normal interval follow-up is recommended in 12 months. BI-RADS CATEGORY: 2 - Benign finding. DENSITY: There are scattered fibroglandular densities. POS - [id number] Narrative 06/19/2018 11:27 AM EDT STUDY: Bilateral screening mammography with tomosynthesis and CAD TECHNIQUE: Bilateral full-field digital screening mammography is obtained and read in conjunction with computer-aided detection. Tomosynthesis as well as 2-D C view imaging were obtained. COMPARISON: Comparison made to multiple prior, most recent July 22, 2015, and most remote March 25, 2009. BREAST COMPOSITION: There are scattered areas of fibroglandular density BILATERAL BREASTS: Status post bilateral reduction mammoplasty. No significant masses, calcifications or other abnormalities are seen. Procedure Note Renu Watts MD - 06/19/2018 STUDY: Bilateral screening mammography with tomosynthesis and CAD TECHNIQUE: Bilateral full-field digital screening mammography is obtainedand read in conjunction with computer-aided detection. Tomosynthesis aswell as 2-D C view imaging were obtained. COMPARISON: Comparison made to multiple prior, most recent July, and most remote March 25, 2009. BREAST COMPOSITION: There are scattered areas of fibroglandulardensity BILATERAL BREASTS: Status post bilateral reduction mammoplasty. Nosignificant masses, calcifications or other abnormalities are seen. IMPRESSION: BILATERAL BREASTS: Benign, no evidence of malignancy. Normal intervalfollow-up is recommended in 12 months. BI-RADS CATEGORY: 2 - Benign finding. DENSITY: There are scattered fibroglandular densities. POS - [id number] Stefania Barton [facility] MG EXAMS Final Re sult documented in this encounter Visit Diagnoses Diagnosis Breast screening Breast screening, unspecified Breast screening Breast screening, unspecified documented in this encounter Additional Health Concerns [...] documented as of this encounter Care Teams Hides And Skins Colorer Relationship Specialty Start Date End Date Stefania Barton CNP [address] [place] [address] [email or web address] PCP - General 08/01/17 01/01/18 Swathi Delgado MD [address] [place] [address] [email or web address] PCP - General Family Medicine 01/02/18 12/30/18 Kajal Durán NP 14 [facility] [address] [place] [address] PCP - General Internal Medicine 12/31/18 02/11/19 Kishor Ventura MD 14 [facility] [address] [place] [address] [email or web address] PCP - General Internal Medicine 02/12/19 03/17/19 Kajal Durán NP [address] [address] [email or web address] PCP - General Internal Medicine 03/18/19 06/15/19 Kishor Ventura MD [address] [place] [address] [email or web address] PCP - General Internal Medicine 06/16/19 09/20/19 Kajal Durán NP [address] [place] [address] [email or web address] PCP - General Internal Medicine 09/21/19 09/04/21 Kishor Ventura MD [address] [place] [address] [email or web address] PCP - General Internal Medicine 09/05/21 12/24/21 Kajal Durán NP [address] [place] [address] [email or web address] PCP - General Internal Medicine 12/25/21 Kishor Ventura MD [address] [place] [phone] [email or web address] Insurance Assigned Provider Internal Medicine 03/18/19 Kishor Ventura MD [address] [place] [phone] [email or web address] Insurance Assigned Provider Internal Medicine 12/25/21 Philipp Almonte MBBS [address] [place] [address] [email or web address] Internal Medicine 02/10/25 Valeri López RN [address] [place] [address] [email or web address] Registered Nurse 03/15/25 documented as of this encounter Additional Source Comments The information contained in this document represents components of the legal health record. It is not the complete legal health record.[facility]
--- OUTSIDE RECORDS SUMMARY | 2025-04-27 11:42 | XMS_ITS | Encounter Summary ---
Author Organization [facility] Address [address] [place], [place] [id number] Phone Care Team Providers Care Service Desk Team Lead Name Role Phone Kajal Durán COMPUTER CONSOLE OPERATOR Primary Care Provider Kishor Ventura MD Primary Care Provider [phone] Kajal Durán NP Primary Care Provider Kishor Ventura MD Unavailable [phone] Kishor Ventura MD Primary Care Provider [phone] Kajal Durán NP Primary Care Provider Kishor Ventura MD Primary Care Provider [phone] Kajal Durán COMPUTER CONSOLE OPERATOR Primary Care Provider Kishor Ventura MD Unavailable Philipp Almonte Unavailable [phone] Valeri López RN Unavailable [phone] Encounter Details Date Type Department Care Team (Late st Contact Info) Description 02/10/2019 Ancillary Orders Virtual Department [address] [place] [address] Eden Cheney MD [address] [place] [address], [address] [place], [place] [phone] Primary hypertension; Chronic kidney disease, unspecified CKD stage; Chronic renal disease, stage III; Hypertensive kidney disease Social History Tobacco Use Types Packs/Day Years [...] Info) Description 04/28/2025 10:15 AM EDT Appointment [facility], [address] [address] Kajal Durán NP [address] [place] [address] 05/10/2025 9:20 AM EDT Office Visit Anticoagulation Clinic [address] [place] [address] Kajal Durán NP [address] [place] [address] 05/10/2025 10:00 AM EDT Office Visit [facility] at [address] [address] Philipp Almonte MBBS [address] [place] [address] [email or web address] 11/02/2025 9:10 AM EST Office Visit [facility] Internal Medicine [address] [place] [address] Kajal Durán NP [address] [place] [address] [email or web address] documented as of this encounter Results * US Kidneys (02/12/2019 10:07 AM EDT) Anatomical Region Laterality Modality Abdomen, Kidney Ultrasound 02/12/2019 10:2 2 AM EDT Impressions 02/12/2019 10:23 AM EDT Normal renal ultrasound. POS [id number] Narrative 02/12/2019 10:23 AM EDT COMPARISON: CT abdomen pelvis 02/18/2018. RENAL ULTRASOUND FINDINGS: Right kidney measures 10 x 4 cm. Left kidney measures 11 x 4 cm. No masses, hydronephrosis or calculi. Cortical echogenicity and thickness are normal. No perinephric fluid collections. Procedure Note Sandy Bell MD - 02/12/2019 COMPARISON: CT abdomen pelvis 02/18/2018. RENAL ULTRASOUND FINDINGS: Right kidney measures 10 x 4 cm. Left kidney measures 11 x 4 cm. Nomasses, hydronephrosis or calculi. Cortical echogenicity and thicknessare normal. No perinephric fluid collections. IMPRESSION: Normal renal ultrasound. POS [id number] Eden Cheney MD [facility] RENAL Final Result documented in this encounter Visit Diagnoses Diagnosis Primary hypertension Unspecified essential hypertension Chronic kidney disease, unspecified CKD stage Chronic renal disease, stage III Chronic kidney disease, Stage III (moderate) Hypertensive kidney disease Unspecified hypertensive kidney disease with chronic kidney disease stage I through stage IV, or unspecified Primary hypertension Unspecified essential hypertension Chronic kidney disease, unspecified CKD stage Chronic renal disease, stage III Chronic kidney disease, Stage III (moderate) Hypertensive kidney disease Unspecified hypertensive kidney disease with chronic kidney disease stage I through stage IV, or unspecified documented in this encounter Additional Health [...] documented as of this encounter Care Teams Service Desk Team Lead Relationship Specialty Start Date End Date Kajal Durán NP [address] [place] [address] [place] [phone] [email or web address] PCP - General Internal Medicine 12/31/18 02/11/19 Kishor Ventura MD [address] [place] [address] [place] [phone] [email or web address] PCP - General Internal Medicine 02/12/19 03/17/19 Kajal Durán NP [address] [place] [phone] [email or web address] PCP - General Internal Medicine 03/18/19 06/15/19 Kishor Ventura MD [address] [place] [address] [place] [address] [email or web address] PCP - General Internal Medicine 06/16/19 09/20/19 Kajal Durán NP [address] [place] [address] [place] [address] PCP - General Internal Medicine 09/21/19 09/04/21 Kishor Ventura MD [address] [place] [address] [email or web address] PCP - General Internal Medicine 09/05/21 12/24/21 Kajal Durán NP [address] [place] [address] [email or web address] PCP - General Internal Medicine 12/25/21 Kishor Ventura MD [address] [place] [phone] [email or web address] Insurance Assigned Provider Internal Medicine 03/18/19 Kishor Ventura MD [address] [place] [phone] [email or web address] Insurance Assigned Provider Internal Medicine 12/25/21 Philipp Almonte MBBS [address] [place] [phone] [email or web address] Internal Medicine 02/10/25 Valeri López, RN [address] [place] [address] [email or web address] Registered Nurse 03/15/25 documented as of this encounter Additional Source Comments The information contained in this document represents components of the legal health record. It is not the complete legal health record.[facility]
--- OUTSIDE RECORDS SUMMARY | 2025-04-27 11:42 | XMS_ITS | Patient Health Record ---
Author Organization [facility] Address [address] [place] [address] Care Team Providers Care Edge Dyer Name Role Phone Luis Armando PERALES, Kajal Primary Care Provider Unavail able Black, Elen Unavailable [phone] Allergies Allergen (clinical drug ingredient) Drug/Non Drug [...] except for between the toes Twice a day; Duration: 30 days Active Aloe Vera - as [...] Problem Acquired hammer toe of right foot (281798512093750 5) Other hammer toe(s) (acquired), right foot (M20.41) Active confirmed Problem Acquired hammer toe of left foot (208055866556720 3) Other hammer toe(s) (acquired), left foot (M20.42) Active confirmed Problem Type II diabetes mellitus without complication (815943906) Type 2 diabetes mellitus without complications (E11.9) Active confirmed Problem Acquired unequal limb length (325541057570203 ) Acquired 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) Active confirmed Problem Plantar flexed metatarsal bone of right foot (M21.6X1) Active confirmed Vital Signs Blood pressure diastolic 77 mm Hg 09/30/2024 Height 5ft 5in in 09/30/2024 Blood pressure systolic 120 mm Hg 09/30/2024 Weight 200 lbs 09/30/2024 BMI 33.28 kg/m2 09/30/2024 Procedures Procedure Date Ordered Date Performed Result Body Sit e 37969-EXEK SKIN LESIONS, 2 TO 4 09/30/2024 N/A Encounters Encounter Location Date Provider Diagnosis [address] [address] 07/23/2024 Elen Black Pain in right foot M79.671 ; Metatarsalgia, right foot M77.41 ; Pain in right ankle and joints of right foot M25.571 ; Bursitis of intermetatarsal bursa of right foot M77.51 ; Plantar flexed metatarsal bone of right foot M21.6X1 and Keratoma L57.[address] [address] 09/30/2024 Elen Black Pain in right foot [...] E11.9 and Acquired unequal limb length M21.[address] [address] 07/23/2024 Elen Strickland [address] [address] 11/26/2024 Elen Marco A [address] [address] 11/27/[address] [address] 03/19/2025 Elen Strickland Assessments Encounter Date Diagnosis (ICD Code) Assessment [...] Treatment Pending Test Test Name Order Date 45615-AHWY SKIN LESIONS, 2 TO 4 09/30/19 25 Next Appt Details Provider Name:Elen Strickland , 06/04/2025 10:15:00 AM, [address] [facility], [place], [address], Insurance Providers Payer Name Payer Address Payer Phone Subscriber Number Group Number Insured Name Patient Relationship to Insured Coverage Start Date Coverage End Date [facility] 65 Medicare Preferred [address] [place] [address] [id number] Cesia Martinez Self - patient is the [...] breast reduction 1996 nose surgery deviated septum 1995 hysterectomy 1980 x5 Hospitalization History Reason Date(Month/Year) Ligia Gonzalez- DVT 06/25
--- OUTSIDE RECORDS SUMMARY | 2025-04-27 11:42 | XMS_ITS | Clinical Summary ---
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 Name Role Phone Kishor Ventura MD Unavailable Kajal Durán TRANSMISSION SYSTEMS OPERATOR Primary Care Provider Kishor Ventura MD Unavailable [phone] Philipp Almonte MBBS Unavailable [phone] Valeri López RN Unavailable [phone] Allergies Active Allergy Reactions Criticality Noted Date Comments Chicken Derived Other (See Comments) High 09/16/2013 FACIAL SWELLING/RASPY THROAT Codeine Other (See Comments) Medium 09/16/2013 FACIAL/EYES SWELLING Egg Derived Other (See Comments),Anaphylaxis High 01/04/2012 TONGUE/LIPS SEVERELY SWOLLEN Latex Other (See Comments) Medium 09/16/2013 CONTACT DERMATITIS Nickel 08/31/2019 Other Unknown 08/24/2016 MEDICAL TAPE Medications aspirin 81 MG EC tablet Take 81 mg by mouth daily. Active omeprazole (PRILOSEC) 20 mg TbEC Take 20 mg by mouth daily before breakfast. As needed Active famotidine (PEPCID) 40 MG tablet In the morning, at night prn 2022 Active loratadine 10 mg Cap Take 10 mg by mouth daily as needed. 2023 Active ubidecarenone (CO Q-10 ORAL) Take 100 mg by mouth daily. 2023 Active Medication-Free Text Berberine w/ ceylon cinnamon - 1200 mg/100 mg 2023 Active magnesium gluconate (MAGONATE) 500 mg (27 mg elemental) Tab Take 500 mg by mouth. 2023 Active cholecalciferol (VITAMIN D3) 25 MCG (1,000 unit) tablet Take 1,000 Units by mouth daily. Active amLODIPine (NORVASC) 5 MG tabletIndications:Musa gn essential hypertension Take 1 tablet (5 mg total) by mouth daily. 90 tablet 3 2023 Active atorvastatin (LIPITOR) 10 MG tabletIndications:Pure hypercholesterolemia Take 1 tablet by mouth once daily 90 tablet 2023 Active Additional Information Patient taking differently: 40 mgOral Daily, Reported on 10/26/2024 ammonium lactate (AMLACTIN) 12 % cream 1 Application. Active warfarin (COUMADIN) 5 MG tabletIndications:Acut e deep vein thrombosis (DVT) of distal vein of left lower extremity Take 1 tablet (5 mg total) by mouth daily. Start 03/06/25 30 tablet 2024 Active Additional Information Patient taking differently:5 mg Oral Daily, Maintenance plan:2.5 mg daily, Reported on 04/05/2025 enoxaparin (LOVENOX) 100 mg/mL Syrg subcutaneous syringeIndications:Acu te deep vein thrombosis (DVT) of distal vein of left lower extremity Inject 0.9 mL (90 mg total) under the skin daily for 5 doses. Start 03/06/25 4.5 mL 2024 Active warfarin (COUMADIN) 2.5 MG tabletIndications:Hete rozygous factor V Leiden mutation,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 Take 1-2 tablets (2.5-5 mg total) by mouth daily. 45 tablet 11 2024 Active Additional Information Patient taking differently:2.5-5 mg Oral Daily,Maintenance plan: 2.5mg daily, Reported on 04/05/2025 metoprolol succinate (TOPROL-XL) 25 MG 24 hr tablet Take 2 tablets (50 mg total) by mouth daily. 180 tablet 3 2024 Active atorvastatin (LIPITOR) 40 MG tablet Take 1 tablet by mouth every morning. 2024 Active metoprolol succinate (TOPROL-XL) 25 MG 24 hr tablet Take 2 tablets (50 mg total) by mouth daily. 60 tablet 3 04/02 Discontinued celecoxib (CELEBREX) 100 MG capsule Take 1 capsule by mouth 2 (two) times a day. As needed 03/29 Discontinued( No CancelRX) apixaban (ELIQUIS) 5 mg tabletIndications:Hete rozygous factor V Leiden mutation,History of DVT (deep vein thrombosis) Take 1 tablet (5 mg total) by mouth 2 (two) times a day. 180 tablet 3 03/29 Discontinued( No CancelRX) Active Problems Problem Noted Date Diagnosed Date snf (current) use of anticoagulants 2024 Factor V Leiden 03/15/2025 Deep venous thrombosis 02/24/2025 Assessment & Plan (02/24/2025 11:34 AM EDT): IMPRESSION: This is a 79-year-old woman with history of recurrent VTE. 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 DISCUSSION: I discussed overall impression, natural history of the disease and further management in this regard. I am concerned that her DVT is likely progressing on current therapy. I recommended that she go to the ER for further management in this regard. Patient agreed and will go to [facility] ER. Since she has failed Eliquis, I would recommend an alternate anticoagulant agent. Since patient seems to be overweight and these new oral anticoagulant agents may not be as effective in patient with high BMI, Coumadin/warfarin is a more appropriate option. Current guidelines recommend switching to a parenteral anticoagulant agent like low molecular weight heparin Lovenox for 4 to 6 weeks before switching to Coumadin. Target INR is 2-3. RECOMMENDATIONS: Patient is going to the ER for further management I called [facility] ER and spoke with the triage nurse Recommendations for ER attending and hospitalist: Patient needs venous duplex study -continue aspirin 81 mg p.o. daily-will need IR/vascular consultation if there is evidence of significant progression -please start Lovenox 1 mg/kg subcu every 12 hours and patient should continue this as an outpatient for 4 to 6 weeks before switching to Coumadin Follow-up with me in 4 to 6 weeks Thank you very much for allowing me to participate in this patient's care Gastroesophageal reflux disease without esophagi tis 11/09/2024 Primary osteoarthritis involving multiple joints 11/09/2024 Migraine with aura and witho ut status migrainosus, not intractable 11/09/2024 History of DVT (deep vein thrombosis) 10/28/2024 Heterozygous factor V Leiden mutation 10/28/2024 Acquired hammer toe of left foot 10/26/2024 Acquired hammer toe of right foot 10/26/2024 Acquired unequal limb length 10/26/2024 Class 1 obesity 10/26/2024 Type 2 diabetes mellitus without complication Palpitations 09/10/2024 PVC's (premature ventricular contractions) 04/01 Atherosclerosis of viejas co ronary artery of viejas heart without angina pectoris 04/01/2024 Type 2 diabetes mellitus wit h diabetic neuropathy, without long-term current use of insulin 02/25/2023 History of CVA (cerebrovascular accident) 2022 Ventricular tachycardia 10/10/2022 Assessment & Plan (10/21/2023 2:46 PM EST): Patient reports relatively recent (within the past two months) increase in palpitations- occurring daily, most frequently when she is in bed. No associated symptoms. Her exam today is benign. Will order 7 day MCT to assess for any arrhythmia that could be the explanation for her symptoms. Given persistent hypertension (BP in office today 160/82, similar readings at home) in addition to palpitations, I did suggest considering increasing metoprolol to 75 mg daily. She would really prefer to hold off on any medication adjustments at this time. Assessment & Plan (10/10/2022 2:25 PM EST): Patient has history of palpitations for many many years recent MCT showed a nonsustained episode of VT. Last echocardiogram 2020 showed normal left ventricular Has no of coronary artery disease or heart disease Discussed ventricular tachycardia and structurally normal heart and in and in impaired LV. Discussed different types of management eluding now starting medical therapy with a beta-ten and doing a stress test she agreed Risk of ventricular tachycardia were explained to the patient and understood Long Q-T syndrome 10/10/2022 Assessment & Plan (10/10/2022 2:31 PM EST): Patient has no family history of sudden she does have family history of coronary artery disease her QT is 406 ms QTc 450 ms we are starting her on a beta-ten I explained to her how 1 interval in her EKG is abnormal is not excessive. 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 Other idiopathic scoliosis, thoracolumbar region 06/14/2021 Disorder of sacrum 11/13/2019 Status post total hip replacement, left 09/14/19 20 Non-seasonal allergic rhinitis 06/16/2019 Assessment & Plan (06/28/2020 12:16 PM EDT): Continue with the Flonase and azelastine. We did discuss adding Sudafed. She says she only has whitecoat hypertension. Is that if this were the case then she can try some Sudafed but the risks seem to be higher than the benefits if she does in fact have high blood pressure. After some consideration she decided that she would like to hold off on Sudafed for now. Assessment & Plan (06/16/2019 12:39 PM EDT): Stable, on current therapy of Singulair daily. Follow-up for any worsening sinus congestion or postnasal drip. GARETH on CPAP 06/16/2019 Assessment & Plan (06/16/2019 12:39 PM EDT): Stable with use of CPAP. Followed by Dr. Lozano of sleep medicine. Mixed hyperlipidemia 06/16/2019 Assessment & Plan (10/10/2022 2:28 PM EST): She has history of hyperlipidemia and she has been treated with statin she should have her lipids and LFTs done through her PCP office and continue her statin Assessment & Plan (06/16/2019 12:40 PM EDT): Stable on current therapies. Continue healthy eating. CKD (chronic kidney disease) stage 3, GFR 30-59 ml/min 06/16/2019 Assessment & Plan (06/16/2019 12:42 PM EDT): Asymptomatic. Stable at baseline. Pt advised on adequate fluid intake, low sodium and potassium intake, and avoiding renal toxic medications. Chronic left hip pain 06/16/2019 Assessment & Plan (06/16/2019 12:44 PM EDT): Will do further work up with xray of left hip to eval for arthritis. Will consider referral to physical therapy or [facility] specialist based on results. Pt verbalizes understanding and in agreement with plan. Cough variant asthma 05/14/2018 Assessment & Plan (06/16/2021 12:18 PM EDT): Recommend restarting an inhaled corticosteroid. We will start with a low-dose of Flovent 1 puff twice daily with a spacer. If that seems to be tolerated well then go up to 2 puffs twice a day. Since her thrush was so severe we will give her nystatin swish and swallow to keep on hand to use twice daily prophylaxis. If she continues with thrush even with Flovent which is a large particle size we will try to get a prior authorization for Asmanex HFA. Assessment & Plan (06/28/2020 12:15 PM EDT): Continue with Singulair and Qvar. Assessment & Plan (11/25/2019 11:33 AM EDT): Cont with Singulair and Qvar. Assessment & Plan (06/16/2019 12:39 PM EDT): Stable on current therapies, with Singulair and Qvar. No recent asthma exacerbations reported. Follow-up as needed. Assessment & Plan (05/05/2019 2:35 PM EDT): Cont with Singulair and Qvar once a day for financial reasons. Assessment & Plan (01/27/2019 12:21 PM EDT): FeNO checked to assess airway inflammation. Will try Breo as a sample, Patient had significant palpitations with her albuterol during PFTs. If that has no major side effects, will continue. Otherwise go back to Flovent. Assessment & Plan (11/25/2018 9:59 AM EDT): Cont with Flovent. Check methacholine challenge test. Assessment & Plan (05/14/2018 8:59 AM EDT): Suspect cough is multifactorial. PFT with some evidence of asthma with normalization of FEV1 to FVC ratio with bronchodilators. Total lung capacity is normal, so I doubt that her asbestos exposure is contributing. Recommended that she try using her albuterol metered-dose inhaler with a spacer device whenever she has those sensations of chest tightness and cough. She has been instructed on the proper use at our office. If it is still unclear at her next visit we will plan to proceed to methacholine challenge test. Post-nasal drip 05/14/2018 Assessment & Plan (11/25/2019 11:34 AM EDT): Recommend adding Flonase and Azelastine nasal spray. Assessment & Plan (05/05/2019 2:38 PM EDT): Recommend Neti pot and mucinex. Assessment & Plan (01/28/2019 9:20 AM EDT): Continue Claritin and Flonase. Perhaps we will try Singulair at our next visit, if she remains symptomatic. Assessment & Plan (11/25/2018 10:00 AM EDT): Cont Claritin and Flonase. Would hold on sudafed given her HTN. Assessment & Plan (05/14/2018 9:02 AM EDT): Patient has clinical signs and symptoms of post-nasal drip. Quite a bit of turbinate hypertrophy. Will add Singulair for allergic rhinitis in addition to Claritin and Flonase nasal spray. Bunion 07/01/2013 Overview (10/22/2014): Nicole Carpal tunnel syndrome 08/22/2011 Chest pain, unspecified 04/26/2010 Knee joint replacement by other means 11/25/2008 Osteoporosis 11/27/2005 Primary hypertension 10/19/2005 Benign essential hypertension 10/19/2005 Assessment & Plan (10/10/2022 2:27 PM EST): Has history of hypertension in fact she was kind enough to bring me the log and many of those blood pressures were actually above 140 Hoping adding a beta-ten will help the blood pressure go down she will need to continue to monitor her blood pressure and she should stay on 4 g sodium diet she will also continue her present regimen of medication which include losartan. 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 Houston of ophthalmology for cataract extraction for left eye on 06/18/2019 and 4 right eye on 06/30/2018. Preop examination 06/16/2019 06/16/2019 Assessment & Plan (06/16/2019 12:38 PM EDT): Generally well female. Relatively safe and low risk for complications related to surgery and local anesthesia. Will fax paperwork to Dr. Houston. Gastroesophageal reflux dise ase with esophagitis 01/28/2019 09/25/2021 Assessment & Plan (06/16/2019 12:42 PM EDT): Stable, only needing Prilosec as needed. F/u with Dr. Uriarte at 20 mg daily. Assessment & Plan (05/05/2019 2:39 PM EDT): No indication for surgery per GI. Assessment & Plan (01/28/2019 9:24 AM EDT): Patient with significant GERD and hiatal hernia. It is likely contributing to her cough-variant asthma. Has been on long-term PPI and is unable to get off. Has been compliant with lifestyle modifications, with wedge pillow and not going to bed for >3hours after a meal. 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 She is transitioning care from Dr. Chawla to Dr. Uriarte. I wonder if it might be time to consider more aggressive therapies such as Isis Fundiplication? I will defer to his expertise. 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; Factor V Leiden 04/20/2025 9:08 AM EDT - 04/20/2025 11:59 PM EDT Hospital Encounter [facility] [address] [place] [address] Jackie King PA-C Discharge Disposition: Home or Self Care 04/20/2025 Telephone [facility] [address] [place] [address] Rachell Reed, SVITLANA 04/07/2025 10:20 AM EDT Telemedicine [facility] [address] [place] [address] Jackie King PA-C Leg cramping (Primary Dx); Impaired renal function; Thrombophilia 04/05/2025 10:00 AM EDT Office Visit [facility] Clinic [address] [place] [address] Kajal Durán NP Deep venous thrombosis (Primary Dx); 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; Factor V Leiden 04/02/2025 Refill [facility] Internal Medicine [address] [place] [phone] Kajal Durán NP Medication Refill 03/29/2025 1:20 PM EDT Office Visit Anticoagulation Clinic [address] [place] [phone] Kajal Durán NP Deep venous thrombosis (Primary Dx); 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; Factor V Leiden 03/29/2025 Orders Only [facility] Internal Medicine [address] [address] Kajal Durán NP Heterozygous factor V Leiden mutation (Primary Dx); 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 03/22/2025 11:40 AM EDT Office Visit Anticoagulation Clinic [address] [place] [phone] Kajal Durán NP Deep venous thrombosis (Primary Dx); snf (current) use of anticoagulants; Factor V Leiden 03/21/2025 8:50 PM EDT - 03/22/2025 1:01 AM EDT Emergency [facility] [address] [place] [phone] Rex Mcclure MD Discharge Disposition: Home or Self Care 03/21/2025 Procedure Pass [facility], Ct Scan - Main Hospital [address] [place] [address] 03/18/2025 8:40 AM EDT Office Visit Anticoagulation Clinic [address] [place] [phone] Kajal Durán NP Deep venous thrombosis (Primary Dx); snf (current) use of anticoagulants; Factor V Leiden 03/15/2025 9:10 AM EDT - 03/15/2025 11:59 PM EDT Hospital Encounter [facility] [address] [place] [phone] Kajal Durán NP Discharge Disposition: Home or Self Care 03/15/2025 9:00 AM EDT Office Visit Anticoagulation Clinic [address] [place] [phone] Enmanuel Silverio DO DVT (deep venous thrombosis) (Primary Dx); Deep venous thrombosis; snf (current) use of anticoagulants; Factor V Leiden 03/12/2025 9:17 AM EDT - 03/12/2025 11:59 PM EDT Hospital Encounter [facility] [address] [place] [phone] Kajal Durán NP Discharge Disposition: Home or Self Care 03/11/2025 10:10 AM EDT - 03/11/2025 11:59 PM EDT Hospital Encounter [facility] [address] [place] [phone] Kajal Durán NP Discharge Disposition: Home or Self Care 03/08/2025 Telephone [facility] [address] [place] [address] Mihir Serrano, [facility] 02/24/2025 3:51 PM EDT - 02/24/2025 8:24 PM EDT Emergency [facility] Emergency [address] [place] [phone] Discharge Disposition: Home or Self Care 02/24/2025 11:00 AM EDT Telemedicine - audio only [facility] at [address] [phone] Philipp Almonte MBBS Heterozygous factor V Leiden mutation (Primary Dx); History of DVT (deep vein thrombosis); Acute deep vein thrombosis (DVT) of other specified vein of left lower extremity 02/09/2025 1:30 PM EDT Office Visit [facility] Internal Medicine 14 [facility] [address] [place] [address] Kajal Durán NP 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 (Primary Dx); Antithrombin III deficiency; Heterozygous factor V Leiden mutation 02/05/2025 9:22 AM EDT - 02/05/2025 11:59 PM EDT Hospital Encounter [facility] [address] [place] [phone] Kajal Durán NP Discharge Disposition: Home or Self Care 02/02/2025 1:20 PM EDT - 02/02/2025 11:59 PM EDT Hospital Encounter [facility], [facility] [address] [place] [address] Kajal Durán NP Discharge Disposition: Home or Self Care 02/02/2025 Telephone [facility] [address] [place] [phone] Beth Casas PA-C Results (Clinically Significant Results) from Last 3 Months Immunizations Immunization Administration Dates Next Due COVID-19 (Pre-06/24) Pfizer Vaccine, mRNA, PF ,10/12/2020 PPD Test 09/24/2006 Pneumococcal conjugate PCV13 08/12/2015 Pneumococcal polysaccharide PPSV23 04/26/2022, Td, unspecified formulation 09/24/2006 Tdap 03/11/2023 Tetanus Immune Globulin 09/24/2006 Tetanus toxoid, adsorbed 09/24/2006 Zoster live 04/26/2022 Zoster recombinant 04/26/2022 Family History Medical History Relation Comments Heart attack Brother Heart disease Brother Breast cancer Cousin paternal Heart attack Father Heart disease Father Heart failure Father Alzheimer's disease Maternal Grandmother Alzheimer's disease Mother Breast cancer Paternal Aunt Relation Status Comments Brother Cousin Daughter 1 Alive Daughter 2 Alive Father Maternal Grandfather Maternal Grandmother Mother Paternal Aunt Paternal Grandfather Paternal Grandmother Son 1 Alive Son 2 Alive Son 3 Alive Social History Tobacco Use Types Packs/Day Years Used Date Smoking Tobacco: Former Cigarettes 3 5 1 965 - 1970 Smokeless Tobacco: Never Tobacco Cessation:Counseling Given: Not Answered Alcohol Use Standard Drinks/Week Comments Yes 0 [...] Orientation Straight 08/31/2019 2: 13 PM EST Last Filed Vital Signs Vital Sign Reading Time Taken Comments Blood Pressure 146/83 03/22/2025 12:34 AM EDT Pulse 80 03/22/2025 12:34 AM EDT Temperature 36.1 C (97 F) 03/22/2025 12:34 AM EDT Respiratory Rate 18 03/22/2025 12:34 AM EDT Oxygen Saturation 95% 03/22/2025 12:34 AM EDT Inhaled Oxygen Concentration - - Weight 90.7 kg (200 lb) 03/21/2025 8:45 PM EDT Height 165.1 cm (5' 5 ) 03/21/2025 8:45 PM EDT Body Mass Index 33.28 03/21/2025 8:45 PM EDT Plan of Treatment Upcoming Encounters Date Type Department Care Team (Late st Contact Info) Description 04/28/2025 10:15 AM EDT Appointment [facility], Bone Density - [address] [address] Kajal Durán NP 14 [facility] [address] [place] [address] 05/10/2025 9:20 AM EDT Office Visit Anticoagulation Clinic [address] [place] [phone] Kajal Durán NP 14 [facility] [address] [place] [address] 05/10/2025 10:00 AM EDT Office Visit [facility] at [facility] [address] [place] [address] Philipp Almonte, CLARITA [address] [place] [address] [email or web address] 11/02/2025 9:10 AM EST Office Visit [facility] Internal Medicine 14 [facility] [address] [place] [address] Kajal Durán NP 14 [facility] [address] [place] [address] [email or web address] Health Maintenance Due Date Last Done Comments DIABETIC EYE EXAM 11/23/2023 11/22/2022 BLOOD PRESSURE 08/11/2025 02/09/2025 HEMOGLOBIN A1C 10/21/2025 04/20/2025, 11/0 03/2024, 01/06/2024, Additional history exists DEPRESSION SCREENING 04/07/2026 04/07/2025 PNEUMOCOCCAL VACCINES (50+ years) Completed 04/26/2022, 08/12/2015, 09/24/2006 SMOKING STATUS SCREENING (Once After 26 Yrs) Completed 03/21/2025 HEPATITIS A VACCINES Aged Out No long er eligible based on patient's age to complete this topic HIB VACCINES Aged Out No longer eligi ble based on patient's age to complete this topic MENINGOCOCCAL VACCINES (ACWY) Aged Out No longer eligible based on patient's age to complete this topic MENINGOCOCCAL VACCINES (B) Aged Out N o longer eligible based on patient's age to complete this topic Medical Devices Implanted Type Area [facility] Program Coordinator Device Identifier Shelf Expiration Date Model / Serial / Lot Lens Lens Bilater al: Eye Prosthetic Joint Prosthetic Joint Bilater al: Knee Prosthetic Joint Prosthetic Joint Bilater al: Knee Right Foot Great Toe Hip Shell 50mm Acetabular 3 Hole G7 - [id number] Implanted:Qty: 1 on 09/14/2019 by Luca Joseph MD at [facility] Left: Hip [employer] 03/16/2029 [id number] / / [id number] Acetabular Liner 36mm Size D G7 Polyethylene Arcomxl Shell High Wall - [id number] Implanted:Qty: 1 on 09/14/2019 by Luca Joseph MD at [facility] Left: Hip [employer] 06/03/2024 [id number] / / [id number] Hip Stem 11x39.6 142mm 1 Size Taperloc Pps Coated Complete Reduced High Offset Type - [id number] Implanted:Qty: 1 on 09/14/2019 by Luca Joseph MD at [facility] Left: Hip [employer] 04/28/2029 [id number] / / [id number] Sleeve Femoral 0.0mm Hip Biol[employer] Delta Option Titanium Type 1 Taper Standard - [id number] Implanted:Qty: 1 on 09/14/2019 by Luca Joseph MD at [facility] Left: Hip [employer] 08/07/2028 [id number] / / [id number] Hip Head 36mm Sleeve Femoral [employer] Delta Option Ti Type 1 Taper Minus - [id number] Implanted:Qty: 1 on 09/14/2019 by Luca Joseph MD at [facility] Left: Hip [employer] 07/15/2028 [id number] / / [id number] Procedures Procedure Name Priority Date/Time Associated Diagnosis Comments POCT INR Routine 04/20/2025 9:56 AM EDT HEMOGLOBIN A1C Routine 04/20/2025 9:12 AM EDT CBC AND DIFFERENTIAL Routine 04/20/2025 9:12 AM EDT Thrombophilia COMPREHENSIVE METABOLIC PANEL Routine 04/20/2025 9:12 AM EDT Impaired renal function MAGNESIUM Routine 04/20/2025 9:12 AM EDT Leg cramping POCT INR Routine 04/05/2025 10:01 AM EDT POCT INR Routine 03/29/2025 1:15 PM EDT POCT INR Routine 03/22/2025 11:[address] CHEST PULMONARY ANGIOGRAM (ACUTE) Routine 03/21/2025 11:07 PM EDT XR CHEST PORTABLE Routine 03/21/2025 10: 28 PM EDT PT-INR STAT 03/21/2025 10:17 PM EDT TROPONIN STAT 03/21/2025 10:17 PM EDT NT-PROBNP Routine 03/21/2025 8:59 PM EDT TROPONIN STAT 03/21/2025 8:59 PM EDT BASIC METABOLIC PANEL STAT 03/21/2025 8:59 PM EDT CBC AND DIFFERENTIAL STAT 03/21/2025 8:59 PM EDT ECG 12-LEAD STAT 03/21/2025 8:35 PM EDT POCT INR Routine 03/18/2025 8:36 AM EDT AMB REF[facility] Routine 03/15/2025 9:39 AM EDT Acute deep vein thrombosis (DVT) of distal vein of left lower extremity Heterozygous factor V Leiden mutation PT-INR STAT 03/15/2025 9:15 AM EDT DVT (deep venous thrombosis) POCT INR Routine 03/15/2025 9:04 AM EDT PT-INR Routine 03/12/2025 9:52 AM EDT Acute deep vein thrombosis (DVT) of distal vein of left lower extremity Heterozygous factor V Leiden mutation PT-INR Routine 03/11/2025 11:01 AM EDT Acute deep vein thrombosis (DVT) of distal vein of left lower extremity Heterozygous factor V Leiden mutation US LOWER EXTREMITY VEINS DUPLEX (LEFT) Routine 02/24/2025 5:29 PM EDT Left leg pain THROMBIN TIME (BOVINE) Routine 9:36 AM EDT REPTILASE TIME Routine 02/05/2025 9:36 AM EDT PT MIXING STUDIES Routine 02/05/2025 9:3 6 AM EDT LUPUS ANTICOAG INTERP Routine 02/05/2025 9:36 AM EDT LUPUS ANTICOAGULANT PANEL Routine 02/05/2025 9:36 AM EDT 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 ANTI-CARDIOLIPIN ANTIBODIES Routine 02/05/2025 9:36 AM EDT 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 INR 2.6(H) 0.86 - 1.17 [facility] Comment:Therapeutic Range 2. 0-3.5 04/20/2025 9:56 AM EDT 04/20/2025 9:57 AM EDT us Kajal Durán NP POINT OF CARE TEST ORDERAB LES Final Result Performing Organization Address City/[facility]/ZIP Co de Phone Number [address] [address] * (ABNORMAL) Comprehensive metabolic panel (04/20/2025 9:12 AM EDT) SODIUM 138 133 - 146 mmol/L [facility] POTASSIUM 4.4 3.3 - 5.1 mmol/L [facility] CHLORIDE 100 96 - 108 mmol/L [facility] CO2 28 21 - 35 mmol/L [facility] BUN 21(H) 6 - 19 mg/dL [facility] CREATININE 1.00 0.5 - 1.5 mg/dL [facility] GLUCOSE 143(H) 70 - 99 mg/dL [facility] ALBUMIN 4.5 3.9 - 4.8 g/dL [facility] TOTAL PROTEIN 7.4 6.5 - 8.0 g/dL [facility] CALCIUM 9.5 8.4 - 10.3 mg/dL [facility] ALKALINE PHOSPHATASE 81 39 - 117 U/L [facility] TOTAL BILIRUBIN 0.6 0.0 - 1.2 mg/dL [facility] AST 19 0 - 37 U/L [facility] ALT 25 0 - 40 U/L [facility] GLOBULIN 2.9 1 - 4.8 g/dL [facility] EGFR 57(L) >59 mL/min/1.7 3m2 [facility] Comment:Estimated glomerular filtration rate calculated using the CKD-EPI refit equation. ANION GAP 14 10 - 20 mmol/L [facility] Blood 04/20/2025 9:12 AM EDT 04/20/2025 9:15 AM EDT us Jackie King PADandreC LAB BLOOD ORDERABLES Janet l Result Performing Organization Address City/[facility]/ZIP Co de Phone Number [address] [address] * (ABNORMAL) CBC and differential (04/20/2025 9:12 AM EDT) Only the most recent of2 resultswithin the time period is included. WBC 9.48 4.00 - 11.00 K/uL [facility] RBC 4.63 4.00 - 5.20 M/uL [facility] HGB 14.6 12.0 - 16.0 g/dL [facility] HCT 43.4 36.0 - 46.0 % [facility] PLT 775(H) 150 - 450 K/uL [facility] MCV 93.7 80.0 - 100.0 fL [facility] MCH 31.5(H) 27.0 - 31.0 pg [facility] MCHC 33.6 32.0 - 36.0 g/dL [facility] RDW 13.7 11.5 - 14.5 % [facility] MPV 9.4 8.4 - 12.0 fL [facility] NRBC 0.00 0.00 /100 WBCs [facility] ABSOLUTE NRBC 0.00 0.00 K/uL [facility] DIFF METHOD Auto [facility] NEUTS 61.3 48.0 - 76.0 % [facility] LYMPHS 24.4 18.0 - 41.0 % [facility] MONOS 8.9 4.0 - 11.0 % [facility] EOS 4.4 0.0 - 5.0 % [facility] BASOS 0.8 0.0 - 1.5 % [facility] Granulocytes, immature (%) 0.2 0.0 - 0.9 % [facility] ABSOLUTE NEUTS 5.81 1.92 - 7.60 K/uL [facility] ABSOLUTE LYMPHS 2.31 0.72 - 4.10 K/uL [facility] ABSOLUTE MONOS 0.84 0.16 - 1.10 K/uL [facility] ABSOLUTE EOS 0.42 0.00 - 0.50 K/uL [facility] ABSOLUTE BASOS 0.08 0.00 - 0.15 K/uL [facility] Granulocytes, immature 0.02 0.00 - 0.09 K/uL [facility] Blood 04/20/2025 9:12 AM EDT 04/20/2025 9:15 AM EDT Jackie LOCKETT-C LAB BLOOD ORDERABLES Janet l Result [address] [address] * Magnesium (04/20/2025 9:12 AM EDT) MAGNESIUM 2.1 1.6 - 2.6 mg/dL [facility] Blood 04/20/2025 9:12 AM EDT 04/20/2025 9:15 AM EDT Jackie LOCKETT-C LAB BLOOD ORDERABLES Janet l Result Performing Organization Address [facility] Co de Phone Number [address] [address] * (ABNORMAL) Hemoglobin A1c (04/20/2025 9:12 AM EDT) HEMOGLOBIN A1C 6.9(H) 4.3 - 5.8 % [facility] 04/20/2025 9:12 AM EDT 04/20/2025 9:15 AM EDT Jackie LOCKETT-C LAB BLOOD ORDERABLES Janet l Result Performing Organization Address [facility] Co de Phone Number [address] [address] * CT CHEST PULMONARY ANGIOGRAM (ACUTE) (03/21/2025 11:07 PM EDT) Anatomical Region Laterality Modality Chest, Thoracic Vasculature Comp uted Tomography 03/22/2025 12:0 7 AM EDT Impressions 03/22/2025 12:11 AM EDT No pulmonary embolism or alternative CT explanation for symptoms. Narrative 03/22/2025 12:[address] CHEST PULMONARY ANGIOGRAM (ACUTE) Referring clinician's provided indication for this examination in [place]: * PE suspected, high prob; Sudden onset chest pain, hx DVT, factor 5, failed multiple anticoagulants TECHNIQUE: Multidetector CT pulmonary angiography was performed after administration of intravenous contrast using tailored dose modulation techniques. 3D angiographic postprocessing techniques were acquired in the form of axial maximum intensity projection images (MIPS). COMPARISON: XR CHEST PORTABLE 22:08:18.000 FINDINGS: Pulmonary Angiogram: The pulmonary arteries are well opacified. There is no pulmonary embolism. Devices/Tubes/Lines: None. Lungs: No pulmonary nodules or consolidation. The airways are clear. Pleura: No pleural effusion or pneumothorax. Mediastinum: Heart: Not enlarged. Pericardial effusion: None. Coronary artery calcifications: Mild. Aorta: No aneurysm. Atherosclerosis. Esophagus: No obvious abnormalities. No thyroid nodules. Lymph Nodes: No enlarged supraclavicular, axillary, mediastinal, or hilar lymph nodes. Upper Abdomen: No significant abnormalities. Simple right hepatic cyst. Chest Wall: No chest wall mass. Bones: No significant abnormality. Procedure Note Sheela Rehman MD - 03/22/2025 CT CHEST PULMONARY ANGIOGRAM (ACUTE) Referring clinician's provided indication for this examination in [place]: *PE suspected, high prob; Sudden onset chest pain, hx DVT, factor 5, failedmultiple anticoagulants TECHNIQUE: Multidetector CT pulmonary angiography was performed afteradministration of intravenous contrast using tailored dose modulationtechniques. 3D angiographic postprocessing techniques were acquired in theform of axial maximum intensity projection images (MIPS). COMPARISON: XR CHEST PORTABLE 22:08:18.000 FINDINGS: Pulmonary Angiogram: The pulmonary arteries are well opacified. There is no pulmonaryembolism. Devices/Tubes/Lines: None. Lungs: No pulmonary nodules or consolidation. The airways are clear. Pleura: No pleural effusion or pneumothorax. Mediastinum: Heart: Not enlarged. Pericardial effusion: None. Coronaryartery calcifications: Mild. Aorta: No aneurysm. Atherosclerosis.Esophagus: No obvious abnormalities. No thyroid nodules. Lymph Nodes: No enlarged supraclavicular, axillary, mediastinal, or hilarlymph nodes. Upper Abdomen: No significant abnormalities. Simple right hepatic cyst. Chest Wall: No chest wall mass. Bones: No significant abnormality. IMPRESSION: No pulmonary embolism or alternative CT explanation for symptoms. Rex Mcclure MD IMG CT CHEST Final Result * XR Chest Portable (03/21/2025 10:28 PM EDT) Anatomical Region Laterality Modality Chest Computed Radiogr aphy 03/21/2025 10:4 1 PM EDT Impressions 03/21/2025 11:42 PM EDT No acute abnormality. ATTESTATION: Alexander Cruz as teaching physician, have reviewed the images for this case and if necessary edited the report originally created by Cody Hahn. Narrative 03/21/2025 11:42 PM EDT XR CHEST PORTABLE Referring clinician's provided indication for this examination in [place]: Pain; Dyspnea (Shortness of Breath) COMPARISON: XR CHEST PA AND LATERAL 2 VIEWS ; CT ANGIO CHEST WITH CONTRAST FINDINGS: Devices/Tubes/Lines: None. Lungs: Streaky left basilar opacities likely represent atelectasis. Pleura: No pleural effusion or pneumothorax. Heart/Mediastinum: Unchanged in appearance. Bones/Soft Tissues: Normal. Procedure Note Alexander Cyr MD - 03/21/2025 XR CHEST PORTABLE Referring clinician's provided indication for this examination in [place]:Pain; Dyspnea (Shortness of Breath) COMPARISON: XR CHEST PA AND LATERAL 2 VIEWS ; CT ANGIO CHESTWITH CONTRAST FINDINGS: Devices/Tubes/Lines: None. Lungs: Streaky left basilar opacities likely represent atelectasis. Pleura: No pleural effusion or pneumothorax. Heart/Mediastinum: Unchanged in appearance. Bones/Soft Tissues: Normal. IMPRESSION: No acute abnormality. ATTESTATION: Alexander Cruz as teaching physician, have reviewed theimages for this case and if necessary edited the report originally createdby Cody Hahn. us Rex Mcclure MD IMG XR CHEST Final Result * (ABNORMAL) PT-INR (03/21/2025 10:17 PM EDT) Only the most recent of4 resultswithin the time period is included. PT 54.9(H) 10.2 - 12.9 sec [facility] INR 4.4(H) 0.9 - 1.1 [facility] Comment:Therapeutic range fo r oral Vitamin K antagonists: 2.0-3.5 Blood 03/21/2025 10:1 7 PM EDT 03/21/2025 10:35 PM EDT us Rex Mcclure MD LAB BLOOD ORDERABLES Final Resu lt Performing Organization Address City/[facility]/ZIP Co de Phone Number [address] [address] * Troponin (03/21/2025 10:17 PM EDT) Only the most recent of2 resultswithin the time period is included. Troponin-T, HS Gen5 8 0 - 9 ng/L [facility] Blood 03/21/2025 10:1 7 PM EDT 03/21/2025 10:35 PM EDT us Rex Mcclure MD LAB BLOOD ORDERABLES Final Resu lt [address] [address] * NT-proBNP (03/21/2025 8:59 PM EDT) NT-PROBNP 64 0 - 450 pg/mL [facility] 03/21/2025 8:59 PM EDT 03/21/2025 9:03 PM EDT us Rex Mcclure MD LAB BLOOD ORDERABLES Final Resu lt Performing Organization Address [facility] Co de Phone Number [address] [address] * (ABNORMAL) Basic metabolic panel (03/21/2025 8:59 PM EDT) SODIUM 139 133 - 146 mmol/L [facility] CHLORIDE 101 96 - 108 mmol/L [facility] POTASSIUM 4.7 3.3 - 5.1 mmol/L [facility] Comment:Specimen slightly he molyzed, result may be falsely elevated. CO2 25 21 - 35 mmol/L [facility] BUN 24(H) 6 - 19 mg/dL [facility] CREATININE 1.20 0.5 - 1.5 mg/dL [facility] GLUCOSE 163(H) 70 - 99 mg/dL [facility] CALCIUM 9.4 8.4 - 10.3 mg/dL [facility] EGFR 46(L) >59 mL/min/1.7 3m2 [facility] Comment:Estimated glomerular filtration rate calculated using the CKD-EPI refit equation. ANION GAP 18 10 - 20 mmol/L [facility] Blood 03/21/2025 8:59 PM EDT 03/21/2025 9:03 PM EDT us Rex Mcclure MD LAB BLOOD ORDERABLES Final Resu lt Performing Organization Address [facility] Co de Phone Number [address] [address] * ECG 12-LEAD (03/21/2025 8:35 PM EDT) Ventricular Rate EKG/MIN 80 BPM [facility] Atrial Rate 80 BPM [facility] RI Interval 160 ms [facility] QRS Duration 74 ms [facility] QT Interval 400 ms [facility] QTC Interval 461 ms [facility] P [place] 72 degrees [facility] R Wave [place] 30 degrees [facility] T Wave [place] 52 degrees [facility] 03/21/2025 8:35 PM EDT 03/22/2025 9:57 AM EDT Narrative [facility] - 03/22/2025 9:57 AM EDT Normal sinus rhythm Low voltage QRS Borderline ECG When compared with ECG of 17-Mar-2023 09:05, No significant change was found Confirmed by Jcarlos Tesfaye ([id number]) on 03/22/2025 9:57:31 AM us Rex Mcclure MD ECG ORDERABLES Final Result [facility] * Amb[facility] referral [facility] (03/15/2025 9:39 AM EDT) Other us Kajal Durán NP AMB [facility] REFERRALS Final Re sult * US Lower Extremity Veins Duplex (Left) (02/24/2025 5:29 PM EDT) Anatomical Region Laterality Modality Hip Left, Thigh Left, Knee L eft, Leg Left, Ankle Left, Foot Left Ultrasound 02/24/2025 7:37 PM EDT Impressions 02/24/2025 7:39 PM EDT No deep vein thrombosis in the visualized veins of the left lower extremity. Interval resolution of the previously visualized posterior tibial vein DVT. 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 COMPARISON: US LOWER EXTREMITY VEINS DUPLEX (LEFT) FINDINGS: Left lower extremity Common femoral vein: Normal compressibility and flow characteristics. Femoral vein: Normal compressibility and flow characteristics. Proximal profunda femoral vein: Normal compressibility. Popliteal vein: Normal compressibility and flow characteristics. Posterior tibial veins: Normal compressibility. Interval resolution of the previously visualized thrombus. Peroneal veins: Normal compressibility. Gastrocnemius veins: Normal compressibility. Great saphenous vein: Normal compressibility at the saphenofemoral junction. Other: None. Right lower extremity Right common femoral vein: Normal compressibility and flow characteristics. 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 COMPARISON: US LOWER EXTREMITY VEINS DUPLEX (LEFT) FINDINGS: Left lower extremity Common femoral vein: Normal compressibility and flow characteristics. Femoral vein: Normal compressibility and flow characteristics. Proximal profunda femoral vein: Normal compressibility. Popliteal vein: Normal compressibility and flow characteristics. Posterior tibial veins: Normal compressibility. Interval resolution of thepreviously visualized thrombus. Peroneal veins: Normal compressibility. Gastrocnemius veins: Normal compressibility. Great saphenous vein: Normal compressibility at the saphenofemoraljunction. Other: None. Right lower extremity Right common femoral vein: Normal compressibility and flowcharacteristics. IMPRESSION: No deep vein thrombosis in the visualized veins of the left lowerextremity. Interval resolution of the previously visualized posteriortibial vein DVT. us Kierra Aguilar PA-C CV US VASCULAR Final Resul t * (ABNORMAL) Thrombin Time (Bovine) (02/05/2025 9:36 AM EDT) Thrombin Time (Bovine) 25.7(H) 15.8 - 24.9 sec [facility] DPT OF LAB MED AND PAT+ 02/05/2025 9:36 AM EDT 02/05/2025 9:41 AM EDT us Kajal Durán NP LAB BLOOD ORDERABLES Final Result [facility] DPT OF LAB MED AND PAT+ [address] [place] [address] * Lupus Anticoag Interp (02/05/2025 9:36 AM EDT) Reviewed By Lissett Ceron M.D., Ph.D. [facility] DPT OF LAB MED AND PAT+ Lupus Anticoagulant Interpretation SEE NOTE [facility] DPT OF LAB MED AND PAT+ Comment: (NOTE) IMPRESSION: 1) No evidence of a lupus anticoagulant. 2) Results may be consistent with potential anticoagulation therapy effect. See comments. 3) If clinically indicated, for additional antiphospholipid antibody evaluation, consider serologic testing for anticardiolipin and anti-beta 2 glycoprotein I antibodies, IgG and IgM isotypes. COMMENTS: Result of mixing study of prolonged prothrombin time (PT), which nearly corrects, may be consistent with a direct factor Xa inhibitor effect (rivaroxaban, apixaban or edoxaban) warfarin anticoagulation effect, nutritional vitamin K deficiency, or specific or non-specific factor inhibitor. Suggest clinical correlation. Note: Direct factor Xa inhibitors (rivaroxaban, apixaban or edoxaban) may result in false-positive or indeterminate LAC test results. Suggest clinical correlation and repeat testing remote from anticoagulant use. Suggest clinical correlation and, if additional testing for coagulation factor assays is indicated, they may be added if there is residual plasma by calling [facility] ( ). Normal activated partial thromboplastin time and dilute Remy viper venom time (DRVVT screen ratio) provide no evidence of a lupus anticoagulant. Borderline prolonged thrombin time (TT) and normal reptilase time (RT) may reflect a normal variant or the presence of heparin or a direct thrombin inhibitor (DTI) in the submitted sample. Recommend clinical correlation. Interpreted by Stella Ceron M.D., Ph.D. and Lana Mcgee MLS ([facility]) 02/05/2025 9:36 AM EDT 02/05/2025 9:41 AM EDT us Kajal Durán NP LAB BLOOD ORDERABLES Final Result [facility] DPT OF LAB MED AND PAT+ [address] [place] [address] * (ABNORMAL) PT mixing studies (02/05/2025 9:36 AM EDT) PT (incub w/nl plasma) 16.7(H) 9.4 - 12.5 sec [facility] DPT OF LAB MED AND PAT+ Comment: (NOTE) ADDITIONAL INFORMATION This test has been modified from the conduit helper's instructions. Its performance characteristics were determined by [facility] in a manner consistent with CLIA requirements. This test has not been cleared or approved by the U.S. Food and Drug Administration. 02/05/2025 9:36 AM EDT 02/05/2025 9:41 AM EDT Kajal Durán NP LAB BLOOD ORDERABLES Final Result Performing Organization Address City/[facility]/ZIP Co de Phone Number [facility] DPT OF LAB MED AND PAT+ [address] [place] [address] * Alxp-4-bkpatqoqgexr I antibodies (02/05/2025 9:36 AM EDT) [id number] IGG <9.4 <15.0 (Negative) U/mL [facility] [address] Beta 2 GP1 Ab IgM <9.4 <15.0 (Negative) [facility] LAB MED/[address] Blood 02/05/2025 9:36 AM EDT 02/05/2025 9:41 AM EDT Kajal Durán NP LAB BLOOD ORDERABLES Final Result Performing Organization Address City/[facility] Co de Phone Number [facility] LAB MED/[address] [place] [address] * Reptilase time (02/05/2025 9:36 AM EDT) REPTILASE TIME, P 20.7 14.0 - 23.9 sec [facility] DPT OF LAB MED AND PAT+ Comment: (NOTE) ADDITIONAL INFORMATION This test has been modified from the conduit helper's instructions. Its performance characteristics were determined by [facility] in a manner consistent with CLIA requirements. This test has not been cleared or approved by the U.S. Food and Drug Administration. 02/05/2025 9:36 AM EDT 02/05/2025 9:41 AM EDT Kajal Durán NP LAB BLOOD ORDERABLES Final Result Performing Organization Address [facility]/ZIP Co de Phone Number [facility] DPT OF LAB MED AND PAT+ [address] [place] [address] * (ABNORMAL) Lupus anticoagulant panel (02/05/2025 9:36 AM EDT) Pathologist [facility] Lupus Anticoagulant Tech Interpretation SEE NOTE [facility] DPT OF LAB MED AND PAT+ Comment: (NOTE) See Lupus Anticoagulant Interp. Prothrombin Time (PT) 21.7(H) 9.4 - 12.5 sec [facility] DPT OF LAB MED AND PAT+ INR 2.0 0.9 - 1.1 [facility] DPT OF LAB MED AND PAT+ Comment: (NOTE) ADDITIONAL INFORMATION Standard intensity warfarin therapeutic range: 2.0 to 3.0 High intensity warfarin therapeutic range: 2.5 to 3.5 Activated Partial Thromboplastin Time 34 25 - 37 sec [facility] DPT OF LAB MED AND PAT+ DRVVT Screen Ratio 1.17 <1.20 ratio [facility] DPT OF LAB MED AND PAT+ Blood 02/05/2025 9:36 AM EDT 02/05/2025 9:41 AM EDT Kajal Durán NP LAB BLOOD ORDERABLES Final Result Performing Organization Address [facility]/ZIP Co de Phone Number [facility] DPT OF LAB MED AND PAT+ [address] [place] [address] * Anti-cardiolipin antibodies (02/05/2025 9:36 AM EDT) PHOSPHOLIPID IGM,S 10.4 <15.0 (Negative) [facility] PHOSPHOLIPID IGG, S <9.4 <15.0 (Negative) [facility]/[address] Blood 02/05/2025 9:36 AM EDT 02/05/2025 9:41 AM EDT us SangerSavita Durán TRANSMISSION SYSTEMS OPERATOR LAB BLOOD ORDERABLES Final Result [facility] LAB MED/[address] [place] [address] * US Lower Extremity Veins Duplex (Left) (02/02/2025 2:27 PM EDT) MGB IMG SNOW GROOMER COMMENT Positive DVT Left posterior vein. COUNTS INCLUDE [facility]S AT [facility] Anatomical Region Laterality Modality Hip Left, Thigh Left, Knee L eft, Leg Left, Ankle Left, Foot Left Ultrasound 02/02/2025 3:19 PM EDT Impressions 02/02/2025 3:26 PM EDT * [id number] only Deep Veinous Thrombosis involving the Left posterior tibial vein. * No findings to suggest superficial thrombus. A clinically significant result was initiated on 02/02/2025 3:26 PM, Message ID [id number]. Narrative 02/02/2025 3:26 PM EDT US LOWER EXTREMITY VEINS DUPLEX (LEFT) Referring clinician's provided indication for this examination in Epic: Left Leg Pain; Swelling of Limb; r/o DVT TECHNIQUE: Lower extremity venous ultrasound with color and spectral Doppler. COMPARISON: US LOWER EXTREMITY VEINS DUPLEX (LEFT) FINDINGS: Exam Quality: Technically adequate exam demonstrates: Left lower extremity: Common femoral vein: Normal compressibility and flow characteristics. Femoral vein: Normal compressibility and flow characteristics. Proximal profunda femoral vein: Normal compressibility. Popliteal vein: Normal compressibility and flow characteristics. Posterior tibial veins: Normal compressibility. Peroneal veins: Normal compressibility. Great saphenous vein: Normal compressibility at the saphenofemoral junction. Contralateral common femoral vein: Normal compressibility. Procedure Note Lopez Cooper MD / System, Provider Not In, PhD - 02/02/2025 US LOWER EXTREMITY VEINS DUPLEX (LEFT) Referring clinician's provided indication for this examination in Epic:Left Leg Pain; Swelling of Limb; r/o DVT TECHNIQUE: Lower extremity venous ultrasound with color and spectralDoppler. COMPARISON: US LOWER EXTREMITY VEINS DUPLEX (LEFT) FINDINGS: Exam Quality: Technically adequate exam demonstrates: Left lower extremity: Common femoral vein: Normal compressibility and flow characteristics. Femoral vein: Normal compressibility and flow characteristics. Proximal profunda femoral vein: Normal compressibility. Popliteal vein: Normal compressibility and flow characteristics. Posterior tibial veins: Normal compressibility. Peroneal veins: Normal compressibility. Great saphenous vein: Normal compressibility at the saphenofemoraljunction. Contralateral common femoral vein: Normal compressibility. IMPRESSION: * [id number] only Deep Veinous Thrombosis involving the Leftposterior tibial vein. * No findings to suggest superficial thrombus. A clinically significant result was initiated on 02/02/2025 3:26 PM, MessageID [id number]. Kajal Durán NP CV US VASCULAR Edited Res ult - Final * DIABETES EYE EXAM FOR RESULT ENTRY ONLY (11/22/2022) Kajal Durán NP HEALTH MAINTENANCE Edited Result - Final from Last 3 Months or Most Recently Relevant to Health Maintenance Insurance [place] P[place] BLUE REPLACEMENT MEDICARE PPO BLUE REPLACEMENT MEDICARE PPO BLUE REPLACEMENT MEDICARE PPO BLUE REPLACEMENT MEDICARE PPO BLUE REPLACEMENT MEDICARE PPO BLUE REPLACEMENT Advance Directives For more information, please contact: [phone] (9AM - 5PM [facility], Saturday-Saturday) Documents on File Type Date Recorded 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 Healthcare Proxy 09/08/2019 1:53 PM * Full Code (Presumed) (Latest Code Status on File) Date Activated Date Inactivated Comments 09/14/2019 5:51 PM 09/16/2019 5:10 PM * Full Code (Presumed) Date Activated Date Inactivated Comments 09/14/2019 10:12 AM 09/14/2019 5:51 PM * Full Code (Presumed) Date Activated Date Inactivated Comments 09/07/2019 10:29 AM 09/07/2019 5:57 PM Care Teams Powdered Sugar Supervisor Relationship Specialty Start Date End Date Kajal Durán NP [address] [place] [address] [place] [address] [email or web address] PCP - General Internal Medicine 12/25/21 Kishor Ventura MD [address] [place] [address] [email or web address] Insurance Assigned Provider Internal Medicine 03/18/19 Kishor Ventura MD [address] [place] [address] [email or web address] Insurance Assigned Provider Internal Medicine 12/25/21 Philipp Almonte MBBS [address] [place] [address] [email or web address] Internal Medicine 02/10/25 Valeri López, RN [address] [place] [address] [email or web address] Registered Nurse 03/15/25 Additional Source Comments The information contained in this document represents components of the legal health record. It is not the complete legal health record.[facility]
--- OUTSIDE RECORDS SUMMARY | 2025-04-27 11:42 | XMS_ITS | Encounter Summary ---
Author Organization [facility] Address [address] [place] [address] Phone Care Team Providers Care Outsole Cementer Machine Name Role Phone Stefania Barton CNP Primary Care Provider + Swathi Delgado MD Primary Care Provider Kajal Durán NP Primary Care Provider [phone] Kishor Ventura MD Primary Care Provider [phone] Kajal Durán NP Primary Care Provider Kishor Ventura MD Unavailable [phone] Kishor Ventura MD Primary Care Provider [phone] Kajal Durán NP Primary Care Provider Kishor Ventura MD Primary Care Provider [phone] Kajal Durán NP Primary Care Provider [phone] Kishor Ventura MD Unavailable [phone] Philipp Almonte Unavailable [phone] Valeri López RN Unavailable [phone] Reason for Referral * Outpatient Procedure - Closed Specialty Diagnoses / Procedures Referred By Conttino t Referred To Contact Diagnoses Shortness of breath Procedures Adult Echo TTE Stefania Barton CNP Phone: tel: fax: mailto:[email or web address] Referral ID Status Reason Start Date Expiration Date Visits Re quested Visits Authorized [id number] Closed 12/31/2017 12/31/2018 1 1 Encounter Details Date Type Department Care Team (Late st Contact Info) Description 12/31/2017 Ancillary Orders Virtual Department [address] [place] [address] Stefania Barton, [address] [address] [email or web address] Shortness of breath Social History Tobacco Use Types Packs/Day Years [...] Info) Description 04/28/2025 10:15 AM EDT Appointment [facility], [address] [address] Kajal Durán NP [address] [place] [address] [email or web address] 05/10/2025 9:20 AM EDT Office Visit Anticoagulation Clinic [address] [place] [address] Kajal Durán NP [address] [place] [address] [email or web address] 05/10/2025 10:00 AM EDT Office Visit Located Within [facility] at [address] [address] Philipp Almonte, CLARITA [address] [place] [address] [email or web address] 11/02/2025 9:10 AM EST Office Visit [facility] [place] Internal Medicine 14 [facility] [address] [place], [place] [phone] Kajal Durán, ANGELLA 14 [facility] [address] [place] [address] [email or web address] documented as of this encounter Results * TTE COMPREHENSIVE (01/17/2018 10:13 AM EDT) Body Surface Area 2.0 m2 Height 165 m Weight 92 kg Systolic BP 160 mmHg Diastolic BP 76 mmHg Left Atrium Dimension Anterior-Posterior 37 15 - 40 mm Aortic Valve Peak Velocity 971.00 mm/s Aortic Valve Peak Gradient 4.00 mmHg Aortic Sinus Diameter 29 mm Ascending Aorta Diameter 29 mm Inferior Vena Cava Diameter 12 0.0 - 21 mm Interventricular Septum Thickness 10 mm Left Ventricle Internal Diameter End Diastole 42 37 - 52 mm Left Ventricle Internal Diameter End Systole 24 22 - 35 mm Left Ventricular Outflow Tract Diameter 18.00 mm LVOT VTI REST 186.00 mm Left Ventricular Outflow Tract Velocity 737.00 mm/s Left Ventricular Outflow Tract Gradient at Rest 2.00 mmHg Left Ventricular Posterior Wall Thickness 10 mm Ejection Fraction 75 50 - 75 Percent Mitral Valve Deceleration Time 203.00 ms Mitral Valve A Wave Speed 817.00 mm/s Mitral Valve E Wave Speed 633.00 mm/s Right Ventricle Basal Diameter 31.60 25 - 41 mm Tricuspid Valve Peak Velocity 2.26 mm/s Raw LV EF% 67 % Aortic Valve Sinus Index 1 15 20 - 32 mm Ascending Aorta Diameter 15 mm Aortic Sinus Index 15 mm Ascending Aorta Index 15 mm Anatomical Region Laterality Modality Heart Ultrasound Narrative 01/17/2018 4:21 PM EDT Left ventricular systolic function is normal. There are no segmental left ventricular wall motion abnormalities noted. The estimated ejection fraction is 75% (Normal 50-75%). There is mild mitral regurgitation The estimated RVSP is 23 mmHg. Normal pulmonary artery pressures No prior studies for comparison Left Ventricle The left ventricular cavity size and wall thickness are normal. Left ventricular systolic function is normal. There are no segmental left ventricular wall motion abnormalities noted. The estimated ejection fraction is 75% (Normal 50-75%). The left ventricular ejection fraction was measured by visual estimate. Left ventricular diastolic function appears within normal limits for age. There is no evidence of left ventricular thrombus. Right Ventricle The right ventricular size is normal. No evidence of right ventricular hypertrophy. The right ventricular systolic function is normal. Left Atrium The left atrium is normal in size. LA ESV index is 28.2 ml/m2. The left atrial anterior-posterior dimension measures 37 mm (normal 15-40 mm). The pulmonary venous flow profiles are normal. Pulmonary vein connections were not well seen. Right Atrium The right atrium is normal in size. The IVC is normal in size (2.1cm or less). The IVC measures 12 mm (normal <=21 mm). The IVC demonstrates normal collapse with inspiration which is consistent with normal RA pressure. Mitral Valve The mitral valve appears normal. The E/A ratio is 0.8. The E/E' AVG is 9.0. There is no evidence of mitral stenosis. There is posterior mitral annular calcification. There is mild mitral regurgitation detected by spectral and color Doppler. Tricuspid Valve The tricuspid valve appears normal. There is no evidence of tricuspid stenosis. The peak TR gradient is 20 mmHg. The RAP is 3. The estimated RVSP is 23 mmHg. Normal pulmonary artery pressures. There is evidence of trace to mild tricuspid regurgitation by color and spectral Doppler. Aortic Valve The aortic valve appears normal. The aortic valve is tricuspid. There is no evidence of valvular aortic stenosis. The peak aortic valve gradient is 4 mmHg. There is no evidence of aortic regurgitation by color and spectral Doppler. Pulmonic Valve The pulmonary valve appears normal. There is no evidence of pulmonic stenosis. There is evidence of trace pulmonary regurgitation by color and spectral Doppler. Pericardium There is no evidence of pericardial effusion. There is evidence of epicardial fat. There no evidence of a pleural effusion. Interatrial Septum The interatrial septum appears normal. Interventricular Septum Interventricular septal motion appears normal. General Findings The image quality was good (2). Comparison Findings No prior studies for comparison. Stefania Barton [facility] CV ECHO ORDERABLES Final Result documented in this encounter Visit Diagnoses Diagnosis Shortness of breath Shortness of breath documented in this encounter Additional Health Concerns [...] documented as of this encounter Care Teams Outsole Cementer Machine Relationship Specialty Start Date End Date Stefania Barton CNP [address] [place] [address] [email or web address] PCP - General 08/01/17 01/01/18 Swathi Delgado MD [address] [place] [address] PCP - General Family Medicine 01/02/18 12/30/18 Kajal Durán NP [address] [place] [address] [address] [place] [address] PCP - General Internal Medicine 12/31/18 02/11/19 Kishor Ventura MD [address] [place] [address] [place] [address] PCP - General Internal Medicine 02/12/19 03/17/19 Kajal Durán NP [address] [address] [email or web address] PCP - General Internal Medicine 03/18/19 06/15/19 Kishor Ventura MD [address] [place] [address] [email or web address] PCP - General Internal Medicine 06/16/19 09/20/19 Kajal Durán NP [address] [place] [address] [email or web address] PCP - General Internal Medicine 09/21/19 09/04/21 Kishor Ventura MD [address] [place] [address] [email or web address] PCP - General Internal Medicine 09/05/21 12/24/21 Kajal Durán NP [address] [place] [address] [email or web address] PCP - General Internal Medicine 12/25/21 Kishor Ventura MD [address] [place] [address] [email or web address] Insurance Assigned Provider Internal Medicine 03/18/19 Kishor Ventura MD [address] [place] [address] [email or web address] Insurance Assigned Provider Internal Medicine 12/25/21 Philipp Almonte MBBS [address] [place] [address] [email or web address] Internal Medicine 02/10/25 Valeri López RN [address] [place] [address] [email or web address] Registered Nurse 03/15/25 documented as of this encounter Additional Source Comments The information contained in this document represents components of the legal health record. It is not the complete legal health record.[facility]
--- OUTSIDE RECORDS SUMMARY | 2025-04-27 11:42 | XMS_ITS | Encounter Summary ---
Author Organization [facility] Address [address] [place], [place] [phone] Phone Care Team Providers Care Historic Preservationist Name Role Phone Swathi Delgado MD Primary Care Provider Kajal Durán WASTE HANDLING TECHNICIAN Primary Care Provider Kishor Ventura MD Primary Care Provider [phone] Kajal Durán WASTE HANDLING TECHNICIAN Primary Care Provider Kishor Ventura MD Unavailable [phone] Kishor Ventura MD Primary Care Provider [phone] Kajal Durán WASTE HANDLING TECHNICIAN Primary Care Provider Kishor Ventura MD Primary Care Provider [phone] Kajal Durán WASTE HANDLING TECHNICIAN Primary Care Provider + [phone] Kishor Ventura MD Unavailable [phone] Philipp Almonte MBBS Unavailable [phone] Valeri López RN Unavailable [phone] Encounter Details Date Type Department Care Team (Late st Contact Info) Description 02/03/2018 Procedure Pass [facility] Endoscopy Admitting Dept Virtual Department [address] [place] [address] Social History Tobacco Use Types Packs/Day Years [...] Info) Description 04/28/2025 10:15 AM EDT Appointment [facility] - [address] [address] Kajal Durán NP 14 [facility] [address] [place] [address] [email or web address] 05/10/2025 9:20 AM EDT Office Visit Anticoagulation Clinic [address] [place] [address] Kajal Durán NP [address] [address] 05/10/2025 10:00 AM EDT Office Visit [facility] at [address] [address] Philipp Almonte MBBS [address] [place] [address] [email or web address] 11/02/2025 9:10 AM EST Office Visit [facility] [place] [facility] [address] [address] Kajal Durán NP [address] [address] documented as of this encounter Visit Diagnoses [...] documented as of this encounter Care Teams Historic Preservationist Relationship Specialty Start Date End Date Swathi Delgado MD [email or web address] PCP - General Family Medicine 01/02/18 12/30/18 Kajal Durán NP [address] [place] [address] [email or web address] PCP - General Internal Medicine 12/31/18 02/11/19 Kishor Ventura MD [address] [place] [address] [email or web address] PCP - General Internal Medicine 02/12/19 03/17/19 Kajal Durán NP [address] [place] [address] [email or web address] PCP - General Internal Medicine 03/18/19 06/15/19 Kishor Ventura MD [address] [place] [address] [email or web address] PCP - General Internal Medicine 06/16/19 09/20/19 Kajal Durán NP [address] [place] [address] [email or web address] PCP - General Internal Medicine 09/21/19 09/04/21 Kishor Ventura MD [address] [place] [address] [email or web address] PCP - General Internal Medicine 09/05/21 12/24/21 Kajal Durán NP [address] [place] [address] [email or web address] PCP - General Internal Medicine 12/25/21 Kishor Ventura MD [address] [place] [address] [email or web address] Insurance Assigned Provider Internal Medicine 03/18/19 Kishor Ventura MD [address] [place] [address] [email or web address] Insurance Assigned Provider Internal Medicine 12/25/21 Philipp Almonte MBBS [address] [place] [address] [email or web address] Internal Medicine 02/10/25 Valeri López, RN [address] [place] [address] [email or web address] Registered Nurse 03/15/25 documented as of this encounter Additional Source Comments The information contained in this document represents components of the legal health record. It is not the complete legal health record.[facility]
--- OUTSIDE RECORDS SUMMARY | 2025-04-27 11:42 | XMS_ITS | Encounter Summary ---
Author Organization [facility] Address [address] [place] [address] Phone Care Team Providers Care Lbd Teacher Name Role Phone Kishor Ventura MD Unavailable [phone] Kajal Durán NP Primary Care Provider + [phone] Kishor Ventura MD Unavailable [phone] Philipp Almonte MBBS Unavailable [phone] Valeri López RN Unavailable [phone] Encounter Details Date Type Department Care Team (Late st Contact Info) Description 06/01/2022 Procedure Pass [facility] Endoscopy Admitting Dept Virtual Department [address] [place] [address] Social History Tobacco Use Types Packs/Day [...] Info) Description 04/28/2025 10:15 AM EDT Appointment [facility] - [address] [phone] Kajal Durán NP [address] [address] 05/10/2025 9:20 AM EDT Office Visit Anticoagulation Clinic [address] [place] [address] Kajal Durán NP [address] [place] [address] 05/10/2025 10:00 AM EDT Office Visit [facility] at [address] [address] Philipp Almonte MBBS [address] [place] [address] [email or web address] 11/02/2025 9:10 AM EST Office Visit [facility] Internal Medicine [address] [place] [address] Kajal Durán NP [address] [place] [address] documented as of this encounter Visit Diagnoses Not on filedocumented in this encounter Additional Health Concerns Infection Onset Date Last Indicated Resolved Time CoV-Presumed 09/04/2022 09/04/2022 09/25/2022 1:22 AM EST COVID-19 08/17/2024 08/17/2024 09/07/2024 1:21 AM EST Assessment Noted Time PHQ-2 Depression Total Score: 2 08/06/20 10:40 AM EST documented as of this encounter Care Teams Lbd Teacher Relationship Specialty Start Date End Date Kajal Durán NP [address] [place] [address] PCP - General Internal Medicine 12/25/21 Kishor Ventura MD [address] [place] [address] [place] [address] [email or web address] Insurance Assigned Provider Internal Medicine 03/18/19 Kishor Ventura MD [address] [place] [address] [place] [address] [email or web address] Insurance Assigned Provider Internal Medicine 12/25/21 Philipp Almonte MBBS [address] [place] [address] [email or web address] Internal Medicine 02/10/25 Valeri López, RN [address] [place] [address] [email or web address] Registered Nurse 03/15/25 documented as of this encounter Additional Source Comments The information contained in this document represents components of the legal health record. It is not the complete legal health record.[facility]
--- OUTSIDE RECORDS SUMMARY | 2025-04-27 11:42 | XMS_ITS | Encounter Summary ---
Author Organization [facility] Address [address] [place] [address] Phone Care Team Providers Care Doorperson Name Role Phone Swathi Delgado MD Primary Care Provider [phone] Kajal Durán ELECTRONIC LAB TECHNICIAN Primary Care Provider [phone] Kishor Ventura MD Primary Care Provider [phone] Kajal Durán ELECTRONIC LAB TECHNICIAN Primary Care Provider [phone] Kishor Ventura MD Unavailable [phone] Kishor Ventura MD Primary Care Provider [phone] Kajal Durán ELECTRONIC LAB TECHNICIAN Primary Care Provider [phone] Kishor Ventura MD Primary Care Provider [phone] Kajal Durán ELECTRONIC LAB TECHNICIAN Primary Care Provider Kishor Ventura MD Unavailable [phone] Philipp Almonte MBBS Unavailable Valeri López RN Unavailable Encounter Details Date Type Department Care Team (Late st Contact Info) Description 02/28/2018 Transcribe Orders [facility]FT Lab [address] [place] [address] Stefania Barton, MAINSPRING REVERSE WINDER [address] [place] [phone] [email or web address] SOB (shortness of breath) (Primary Dx) Social History Tobacco Use Types [...] Info) Description 04/28/2025 10:15 AM EDT Appointment [facility], [address] [address] Kajal Durán NP [address] [address] 05/10/2025 9:20 AM EDT Office Visit Anticoagulation Clinic [address] [place] [address] Kajal Durán NP [address] [place] [address] 05/10/2025 10:00 AM EDT Office Visit [facility] at [address] [address] Philipp Almonte MBBS [address] [place] [address] [email or web address] 11/02/2025 9:10 AM EST Office Visit [facility] [place] [facility] [address] [address] Kajal Durán NP [address] [address] documented as of this encounter Results * Pulmonary Function Test Reason for Exam: Dyspnea/Shortness of Breath; Type of PFT Test: Spirometry with bronchodilator, Spirometry while seated and supine, Lung Volumes, DLCO; Performing Location: [facility] (03/06/2018 8:45 AM EDT) FEV1 2.02 liters FVC 2.91 liters FEV1/FVC 69 liters TLC 4.97 liters DLCO 18.5 ml/mmHg sec Anatomical Region Laterality Modality Other Impressions 03/06/2018 8:45 AM EDT PULMONARY FUNCTION STUDIES Full pulmonary function studies were performed on this 72 y.o. year-old female for evaluation of dyspnea. Review of the medical record reveals that the patient is a past smoker, but having smoked for only 5 years and quit in 1965. Prior pulmonary function studies are available for comparison, performed on 06/30/15. SPIROMETRY: The FEV1 is normal at 2.02 L or 99% predicted. The FVC is normal at 2.91 L or 101% predicted. The FEV1/FVC ratio is minimally impaired at 69%, but normalizes to 75% post-bronchodilator without any technically significant change in FEV1 or FVC. Mid flows are mildly impaired, and peak flows are mildly impaired pre- bronchodilator but normalize post-bronchodilator. FLOW-VOLUME LOOPS: Evaluation of the flow-volume loops reveals normal morphology of the inspiratory limb with minimal scooping of the expiratory limb and blunting of the peak expiratory flows in the pre-bronchodilator tracing, both of which normalizes post-bronchodilator. LUNG VOLUME MEASUREMENTS BY PLETHYSMOGRAPHY: The total lung capacity is normal at 4.97 L or 99% predicted. The functional residual capacity is normal at 2.72 L or 106% predicted. Of note, the ERV is markedly impaired, likely representing the imprint of body habitus, DIFFUSION CAPACITY: The diffusion capacity is normal at 18.5 mL/mmHg sec or 84% predicted. COMPARISON TO PRIOR STUDIES: When comparing to prior studies, the minimal airflow obstruction seen in baseline spirometry is new, but the mild gas exchange impairment noted with a DLCO of 70% predicted in 2014 has resolved. Resting oxygen saturation is 96% on room air. IMPRESSION: Minimally abnormal pulmonary function studies as evidenced by borderline airflow obstruction in baseline spirometry, which normalizes postbronchodilator though without any technically significant change in FEV1 or FVC. Lung volume and diffusion capacity measurements are normal. If a diagnosis of asthma is in question, a methacholine challenge study could be obtained to further evaluate this. us Provider Not In System PhD PFT ORDERABLES Final Result documented in this encounter Visit Diagnoses Diagnosis SOB (shortness of breath)- Primary Shortness of breath SOB (shortness of breath) Shortness of breath documented in this encounter [...] documented as of this encounter Care Teams Doorperson Relationship Specialty Start Date End Date Swathi Delgado MD [email or web address] PCP - General Family Medicine 01/02/18 12/30/18 Kajal Durán NP [address] [place] [address] [place] [address] [email or web address] PCP - General Internal Medicine 12/31/18 02/11/19 Kishor Ventura MD [address] [place] [address] [place] [address] [email or web address] PCP - General Internal Medicine 02/12/19 03/17/19 Kajal Durán NP [address] [place] [address] [email or web address] PCP - General Internal Medicine 03/18/19 06/15/19 Kishor Ventura MD [address] [place] [address] [email or web address] PCP - General Internal Medicine 06/16/19 09/20/19 Kajal Durán NP [address] [place] [address] [email or web address] PCP - General Internal Medicine 09/21/19 09/04/21 Kishor Ventura MD [address] [place] [address] [email or web address] PCP - General Internal Medicine 09/05/21 12/24/21 Kajal Durán NP [address] [place] [address] [email or web address] PCP - General Internal Medicine 12/25/21 Kishor Ventura MD [address] [place] [address] [email or web address] Insurance Assigned Provider Internal Medicine 03/18/19 Kishor Ventura MD [address] [address] [email or web address] Insurance Assigned Provider Internal Medicine 12/25/21 Philipp Almonte MBBS [address] [place] [address] [email or web address] Internal Medicine 02/10/25 Valeri López RN [address] [place] [address] [email or web address] Registered Nurse 03/15/25 documented as of this encounter Additional Source Comments The information contained in this document represents components of the legal health record. It is not the complete legal health record.[facility]
--- OUTSIDE RECORDS SUMMARY | 2025-04-27 11:42 | XMS_ITS | Encounter Summary ---
Author Organization [facility] Address [address] [place], [place] [phone] Phone Care Team Providers Care Traffic Analyst Name Role Phone Swathi Delgado MD Primary Care Provider Kajal Durán SHOW OPERATIONS SUPERVISOR Primary Care Provider Kishor Ventura MD Primary Care Provider [phone] Kajal Durán SHOW OPERATIONS SUPERVISOR Primary Care Provider Kishor Ventura MD Unavailable [phone] Kishor Ventura MD Primary Care Provider [phone] Kajal Durán SHOW OPERATIONS SUPERVISOR Primary Care Provider Kishor Ventura MD Primary Care Provider [phone] Kajal Durán SHOW OPERATIONS SUPERVISOR Primary Care Provider [phone] Kishor Ventura MD Unavailable [phone] Philipp AlmonteBS Unavailable [phone] Valeri López RN Unavailable [phone] Encounter Details Date Type Department Care Team (Late st Contact Info) Description 02/11/2018 Procedure Pass [facility], Ct Scan - [address] [id number] Social History Tobacco Use Types Packs/Day Years [...] Info) Description 04/28/2025 10:15 AM EDT Appointment [facility], Bone Density - [address] [address] Kajal Durán NP [address] [address] 05/10/2025 9:20 AM EDT Office Visit Anticoagulation Clinic [address] [place] [address] Kajal Durán NP [address] [address] 05/10/2025 10:00 AM EDT Office Visit [facility] at [address] [address] Philipp Almonte MBBS [address] [place] [address] [email or web address] 11/02/2025 9:10 AM EST Office Visit [facility] [place] [facility] [address] [address] Kajal Durán NP [address] [address] documented as of this encounter Visit Diagnoses [...] documented as of this encounter Care Teams Traffic Analyst Relationship Specialty Start Date End Date Swathi Delgado MD [email or web address] PCP - General Family Medicine 01/02/18 12/30/18 Kajal Durán NP [address] [place] [address] [email or web address] PCP - General Internal Medicine 12/31/18 02/11/19 Kishor Ventura MD [address] [place] [phone] [email or web address] PCP - General Internal Medicine 02/12/19 03/17/19 Kajal Durán NP [address] [place] [address] [place] [address] [email or web address] PCP - General Internal Medicine 03/18/19 06/15/19 Kishor Ventura MD [address] [place] [address] [email or web address] PCP - General Internal Medicine 06/16/19 09/20/19 Kajal Durán NP [address] [address] [email or web address] PCP - General Internal Medicine 09/21/19 09/04/21 Kishor Ventura MD [address] [place] [address] [email or web address] PCP - General Internal Medicine 09/05/21 12/24/21 Kajal Durán NP [address] [address] [email or web address] PCP - General Internal Medicine 12/25/21 Kishor Ventura MD [address] [place] [address] [email or web address] Insurance Assigned Provider Internal Medicine 03/18/19 Kishor Ventura MD [address] [place] [address] [email or web address] Insurance Assigned Provider Internal Medicine 12/25/21 Philipp Almonte MBBS [address] [place] [address] [email or web address] Internal Medicine 02/10/25 Valeri López RN [address] [place] [address] [email or web address] Registered Nurse 03/15/25 documented as of this encounter Additional Source Comments The information contained in this document represents components of the legal health record. It is not the complete legal health record.[facility]
--- OUTSIDE RECORDS SUMMARY | 2025-04-27 11:42 | XMS_ITS | Encounter Summary ---
Author Organization [facility] Address [address] [place] [address] Phone Care Team Providers Care Functional Support Analyst Name Role Phone Swathi Delgado MD Primary Care Provider Kajal Durán CONVERTER SUPERVISOR Primary Care Provider Kishor Ventura MD Primary Care Provider [phone] Kajal Durán CONVERTER SUPERVISOR Primary Care Provider Kishor Ventura MD Unavailable [phone] Kishor Ventura MD Primary Care Provider [phone] Kajal Durán NP Primary Care Provider Kishor Ventura MD Primary Care Provider [phone] Kajal Durán NP Primary Care Provider Kishor Ventura MD Unavailable [phone] Philipp Almonte Unavailable [phone] Valeri López RN Unavailable [phone] Reason for Referral * MRI/CAT Scan - Closed Specialty Diagnoses / Procedures Referred By Yumiko t Referred To Contact Radiology Diagnoses Abdominal pain, unspecified abdominal location Procedures CT Abdomen/Pelvis Rafa Chawla MD Phone: tel: fax: [email or web address] Referral ID Status Reason Start Date Expiration Date Visits Re quested Visits Authorized [id number] Closed 02/11/2018 02/11/2019 1 1 Encounter Details Date Type Department Care Team (Late st Contact Info) Description 02/11/2018 Ancillary Orders Virtual Department [address] [place] [address] Rafa Chawla MD [address] [place] [phone] [email or web address] Abdominal pain, unspecified abdominal location Social History Tobacco Use Types Packs/Day Years [...] Info) Description 04/28/2025 10:15 AM EDT Appointment [facility], [address] [address] Kajal Durán NP [address] [address] 05/10/2025 9:20 AM EDT Office Visit Anticoagulation Clinic [address] [place] [address] Kajal Durán NP 14 [facility] [address] [place] [address] 05/10/2025 10:00 AM EDT Office Visit [facility] at [address] [address] Philipp Almonte, CLARITA [address] [place] [address] [email or web address] 11/02/2025 9:10 AM EST Office Visit [facility] [place] [facility] 14 [facility] [address] [place] [address] Kajal Durán, ANGELLA 14 [facility] [address] [place] [address] [email or web address] documented as of this encounter Results * CT ABDOMEN/PELVIS WITH CONTRAST (02/18/2018 2:42 PM EDT) Anatomical Region Laterality Modality Abdomen, Pelvis Computed Tomogra phy 02/18/2018 2:38 PM EDT Impressions 02/18/2018 2:46 PM EDT Chronic diverticulosis without evidence of active diverticulitis, appendicitis, specific etiology of right sided abdominal pain, or other interval change from 06/12/2017. TOTAL CTDIvol: 9.30 mGy POS - [id number] Narrative 02/18/2018 2:46 PM EDT COMPARISON: 06/12/2017 CT TECHNIQUE: After the administration of oral and intravenous contrast, multidetector CT is obtained from dome of the liver through the inferior pubic rami. Multiplanar reformatted images generated. Automated exposure control utilized FINDINGS: Liver is stable in appearance without focal mass lesions, dominant cysts, bile duct dilatation, or perihepatic ascites present. Portal vein is grossly patent. No choledocholithiasis is noted. Spleen and adrenal glands are stable and within normal limits in appearance. No pancreatic mass, duct dilatation, or peripancreatic inflammatory changes are noted. No renal mass, dominant cyst, hydronephrosis, or nephrolithiasis demonstrated. There is no evidence of small bowel obstruction. Appendix is unremarkable in appearance. Diverticula are scattered throughout the transverse, descending, and sigmoid colon without paracolic inflammatory infiltration or discrete peridiverticular abscesses noted. No free intraperitoneal air or bowel-containing abdominal wall hernia. Small fat-containing inguinal hernias. No evidence of aortoiliac aneurysm. No pathologically enlarged mesenteric, para-aortic, iliac chain, or inguinal lymph nodes are identified. Patient is status-post hysterectomy. No pelvic sidewall mass or significant free fluid collections are seen. There are grossly stable 2 mm and 3 mm left lower lobe nodules. No acute airspace infiltrate or pleural effusion are demonstrated. Lower lumbar degenerative disc changes are stable without acute traumatic or destructive bony abnormality apparent. Procedure Note Conrad Serrano MD - 02/18/2018 COMPARISON: 06/12/2017 CT TECHNIQUE: After the administration of oral and intravenous contrast,multidetector CT is obtained from dome of the liver through the inferiorpubic rami. Multiplanar reformatted images generated. Automated exposurecontrol utilized FINDINGS: Liver is stable in appearance without focal mass lesions, dominant cysts,bile duct dilatation, or perihepatic ascites present. Portal vein isgrossly patent. No choledocholithiasis is noted. Spleen and adrenal glands are stable and within normal limits inappearance. No pancreatic mass, duct dilatation, or peripancreaticinflammatory changes are noted. No renal mass, dominant cyst, hydronephrosis, or nephrolithiasisdemonstrated. There is no evidence of small bowel obstruction. Appendix is unremarkablein appearance. Diverticula are scattered throughout the transverse,descending, and sigmoid colon without paracolic inflammatory infiltrationor discrete peridiverticular abscesses noted. No free intraperitoneal airor bowel-containing abdominal wall hernia. Small fat-containing inguinalhernias. No evidence of aortoiliac aneurysm. No pathologically enlargedmesenteric, para-aortic, iliac chain, or inguinal lymph nodes areidentified. Patient is status-post hysterectomy. No pelvic sidewall massor significant free fluid collections are seen. There are grossly stable 2 mm and 3 mm left lower lobe nodules. No acuteairspace infiltrate or pleural effusion are demonstrated. Lower lumbardegenerative disc changes are stable without acute traumatic ordestructive bony abnormality apparent. IMPRESSION: Chronic diverticulosis without evidence of active diverticulitis,appendicitis, specific etiology of right sided abdominal pain, or otherinterval change from 06/12/2017. TOTAL CTDIvol: 9.30 mGy POS - [id number] us Rafa Chawla MD IMG CT ABD/PELVIS Final Resul t documented in this encounter Visit Diagnoses Diagnosis Abdominal pain, unspecified abdominal location Abdominal pain, unspecified abdominal location documented in this encounter Additional Health Concerns [...] documented as of this encounter Care Teams Functional Support Analyst Relationship Specialty Start Date End Date Swathi Delgado MD [email or web address] PCP - General Family Medicine 01/02/18 12/30/18 Kajal Durán NP [address] [place] [address] [place] [address] [email or web address] PCP - General Internal Medicine 12/31/18 02/11/19 Kishor Ventura MD [address] [place] [address] [place] [address] [email or web address] PCP - General Internal Medicine 02/12/19 03/17/19 Kajal Durán NP [address] [place] [address] [place] [address] [email or web address] PCP - General Internal Medicine 03/18/19 06/15/19 Kishor Ventura MD [address] [place] [address] [email or web address] PCP - General Internal Medicine 06/16/19 09/20/19 Kajal Durán NP [address] [place] [phone] [email or web address] PCP - General Internal Medicine 09/21/19 09/04/21 Kishor Ventura MD [address] [place] [address] [email or web address] PCP - General Internal Medicine 09/05/21 12/24/21 Kajal Durán NP [address] [place] [address] [email or web address] PCP - General Internal Medicine 12/25/21 Kishor Ventura MD [address] [place] [address] [email or web address] Insurance Assigned Provider Internal Medicine 03/18/19 Kishor Ventura MD [address] [place] [address] [email or web address] Insurance Assigned Provider Internal Medicine 12/25/21 Philipp Almonte MBBS [address] [place] [address] [email or web address] Internal Medicine 02/10/25 Valeri López, RN [address] [place] [address] Registered Nurse 03/15/25 documented as of this encounter Additional Source Comments The information contained in this document represents components of the legal health record. It is not the complete legal health record.[facility]
--- OUTSIDE RECORDS SUMMARY | 2025-04-27 11:42 | XMS_ITS | Encounter Summary ---
Author Organization [facility] Address [address] [place] [address] Phone Care Team Providers Care Plastics Supervisor Name Role Phone Swathi Delgado MD Primary Care Provider [phone] Kajal Durán HUMAN RESOURCES DISTRICT MANAGER Primary Care Provider Kishor Ventura MD Primary Care Provider [phone] Kajal Durán HUMAN RESOURCES DISTRICT MANAGER Primary Care Provider [phone] Kishor Ventura MD Unavailable [phone] Kishor Ventura MD Primary Care Provider [phone] Kajal Durán HUMAN RESOURCES DISTRICT MANAGER Primary Care Provider Kishor Ventura MD Primary Care Provider [phone] Kajal Durán HUMAN RESOURCES DISTRICT MANAGER Primary Care Provider Kishor Ventura MD Unavailable [phone] Philipp Almonte MBBS Unavailable [phone] Valeri López RN Unavailable +[phone] Encounter Details Date Type Department Care Team (Latest Contact Info) Description 02/05/2018 Transcribe Orders [facility] 30 [place] [address] Rafa Chawla MD [address] [place] [address] [email or web address] Abdominal pain, unspecified abdominal location (Primary Dx) Social History Tobacco Use Types [...] Info) Description 04/28/2025 10:15 AM EDT Appointment [facility], [address] [address] Kajal Durán NP [address] [place] [address] 05/10/2025 9:20 AM EDT Office Visit [facility] Clinic [address] [place] [address] Kajal Durán NP [address] [place] [address] 05/10/2025 10:00 AM EDT Office Visit [facility] at [address] [address] Philipp Almonte, CLARITA [address] [place] [address] [email or web address] 11/02/2025 9:10 AM EST Office Visit [facility] [place] [facility] [address] [place] [address] Kajal Durán NP [address] [address] documented as of this encounter Results * (ABNORMAL) Creatinine/eGFR (02/05/2018 9:55 AM EDT) CREATININE 1.00 0.5 - 1.5 mg/dL [facility] EGFR 56(L) >59 mL/min/1.7 3m2 [facility] Comment:If patient is black, multiply result by 1.159. The eGFR calculation has changed from the MDRD equation to the CKD-EPI equation as of November 05, 2017. Blood 02/05/2018 9:55 AM EDT 02/05/2018 9:56 AM EDT us Rafa Chawla MD LAB BLOOD ORDERABLES Final Re sult [facility] 30 [place] [address] documented in this encounter Visit Diagnoses Diagnosis Abdominal pain, unspecified abdominal location- Primary documented in this encounter Additional Health [...] documented as of this encounter Care Teams Plastics Supervisor Relationship Specialty Start Date End Date Swathi Delgado MD [email or web address] PCP - General Family Medicine 01/02/18 12/30/18 Kajal Durán NP [address] [address] [email or web address] PCP - General Internal Medicine 12/31/18 02/11/19 Kishor Ventura MD [address] [place] [address] [email or web address] PCP - General Internal Medicine 02/12/19 03/17/19 Kajal Durán NP [address] [place] [address] [email or web address] PCP - General Internal Medicine 03/18/19 06/15/19 Kishor Ventura MD [address] [place] [address] [email or web address] PCP - General Internal Medicine 06/16/19 09/20/19 Kajal Durán NP [address] [place] [address] [email or web address] PCP - General Internal Medicine 09/21/19 09/04/21 Kishor Ventura MD [address] [place] [address] [email or web address] PCP - General Internal Medicine 09/05/21 12/24/21 Kajal Durán NP [address] [place] [address] [email or web address] PCP - General Internal Medicine 12/25/21 Kishor Ventura MD [address] [place] [address] [place], [place] [address] [place] [address] [email or web address] Insurance Assigned Provider Internal Medicine 03/18/19 Kishor Ventura MD [address] [place] [address] [place] [address] [email or web address] Insurance Assigned Provider Internal Medicine 12/25/21 Philipp Almonte MBBS [address] [place] [address] [email or web address] Internal Medicine 02/10/25 Valeri López, RN [address] [place] [address] [email or web address] Registered Nurse 03/15/25 documented as of this encounter Additional Source Comments The information contained in this document represents components of the legal health record. It is not the complete legal health record.[facility]
--- OUTSIDE RECORDS SUMMARY | 2025-04-27 11:42 | XMS_ITS | Clinical Summary ---
Author Organization [facility] [place] [facility], Address [address] [place] [address] Phone Care Team Providers Care Hunting Sales Leader Name Role Phone Kajal Durán NP Primary Care Provider [phone] Allergies Active Allergy Reactions Criticality Noted Date [...] healthy eating. Benign essential hypertension 10/19/2005 Immunizations Immunization Administration Dates Next Due PPD Test 09/24/2006 Pfizer SARS-COV-2 11/02/2020,10/12/2020 Pneumococcal Conjugate 13-Valent 08/12/2015 Pneumococcal Polysaccharide 04/26/2022, 7 Shingrix 04/26/2022 Td, Unspecified 09/24/2006 Tetanus 09/24/2006 Family History Medical History Relation Comments Cancer Father 2 Aunt/Breast Heart disease Father 2 ID Dementia Mother 2 also Grandmother Heart disease Sibling Brother/ID Relation Status Comments Father 1 Father 2 [...] 66 02/12/2023 10:31 AM EDT Temperature 36.7 C (98 F) 02/10/2019 12:00 PM EDT Respiratory Rate 14 02/12/2023 10:31 AM EDT Oxygen Saturation - - Inhaled Oxygen Concentration - - Weight 94.3 kg (208 lb) 02/12/2023 10:31 AM EDT Height 165.1 cm (5' 5 ) 02/12/2023 10:31 AM EDT Body Mass Index 34.61 02/12/2023 10:31 AM EDT Plan of Treatment Health Maintenance Due Date Last Done Comments Influenza Vaccine (#1) 2025 Pneumococcal Vaccine: 50+ Years Completed 04/26/2022, 08/12/2015, 09/24/2006 Pneumococcal Vaccine: Peds (0 to 5 Years) and At-Risk Patients (6 to 49 Years) Discontinued 04/26/2022, 08/12/2015, 09/24/2006 Hepatitis B Vaccine Aged Out No longe r eligible based on patient's age to complete this topic Insurance [facility] Care Teams Hunting Sales Leader Relationship Specialty Start Date End Date Kajal Durán NP [address] [place] [address] [address] [place] [address] PCP - General 07/07/19
--- OUTSIDE RECORDS SUMMARY | 2025-04-27 11:42 | XMS_ITS | Encounter Summary ---
Author Organization [facility] Address [address] [place] [address] Phone Care Team Providers Care Supervisor Opening And Picking Name Role Phone Kishor Ventura MD Unavailable Kajal Durán NP Primary Care Provider Kishor Ventura MD Unavailable [phone] Philipp Almonte MBBS Unavailable [phone] Valeri López RN Unavailable [phone] Encounter Details Date Type Department Care Team (Late st Contact Info) Description 03/21/2025 Procedure Pass [facility], Ct Scan - [address] [address] Social History Tobacco Use Types Packs/Day Years [...] 2:13 PM EST Sexual Orientation Straight 08/31/2019 2 :13 PM EST documented as of this encounter Functional Status * Calculated C-SSRS Risk Score (Lifetime/Recent) Answer Date of Assessment Author No Risk Indicated 03/21/2025 8:49 PM EDT Kathie Healy RN * [place] Suicide Severity Rating Scale (Screener/Recent Self-Report) Question [...] Info) Description 04/28/2025 10:15 AM EDT Appointment [facility], [address] [address] Kajal Durán NP 14 [facility] [address] [place] [address] 05/10/2025 9:20 AM EDT Office Visit [facility]tico[facility] Clinic [address] [place] [address] Kajal Durán NP [address] [place] [address] [place] [address] 05/10/2025 10:00 AM EDT Office Visit [facility] at [facility] 30 [place] [address] Philipp Almonte MBBS 30 [place] [address] [email or web address] 11/02/2025 9:10 AM EST Office Visit [facility] Medicine [address] [address] Kajal Durán NP [address] [place] [address] [email or web address] documented as of this encounter Visit Diagnoses Not on filedocumented in this encounter Additional Health Concerns Assessment Noted Time PHQ-2 Depression Total Score: 1 10/21/19 25 5:49 PM EST documented as of this encounter Care Teams Supervisor Opening And Picking Relationship Specialty Start Date End Date Kajal Durán NP [address] [place] [address] PCP - General Internal Medicine 12/25/21 Kishor Ventura MD [address] [place] [address] Insurance Assigned Provider Internal Medicine 03/18/19 Kishor Ventura MD [address] [place] [address] Insurance Assigned Provider Internal Medicine 12/25/21 Philipp Almonte MBBS [address] [place] [address] [email or web address] Internal Medicine 02/10/25 Valeri López RN 30 [place] [address] [email or web address] Registered Nurse 03/15/25 documented as of this encounter Additional Source Comments The information contained in this document represents components of the legal health record. It is not the complete legal health record.[facility]
--- OUTSIDE RECORDS SUMMARY | 2025-04-27 11:42 | XMS_ITS | Encounter Summary ---
Author Organization [facility] Address [address] [place] [address] Phone Care Team Providers Care Multi Operation Forming Machine Setter Name Role Phone Kishor Ventura MD Unavailable [phone] Kajal Durán NP Primary Care Provider + [phone] Kishor Ventura MD Unavailable [phone] Philipp Almonte MBBS Unavailable [phone] Valeri López RN Unavailable [phone] Encounter Details Date Type Department Care Team (Late st Contact Info) Description 08/07/2022 Procedure Pass [facility] 30 [place] [address] Social History Tobacco Use Types Packs/Day Years Used Date Smoking Tobacco: Former Cigarettes 3 5 1 965 - 1970 Smokeless Tobacco: Never Alcohol Use Standard Drinks/Week Comments Yes 0 (1 standard drink = 0.6 oz pur e alcohol) rare, maybe once a month Comments No Sex and Gender [...] Info) Description 04/28/2025 10:15 AM EDT Appointment [facility], [facility] 30 [place] [address] Kajal Durán NP [address] [address] 05/10/2025 9:20 AM EDT Office Visit [facility] [address] [place] [address] Kajal Durán NP [address] [address] 05/10/2025 10:00 AM EDT Office Visit [facility] at [address] [address] Philipp Almonte MBBS [address] [place] [address] [email or web address] 11/02/2025 9:10 AM EST Office Visit [facility] Internal Medicine [address] [place] [address] Kajal Durán NP [address] [place] [address] documented as of this encounter Visit Diagnoses Not on filedocumented in this encounter Additional Health Concerns Infection Onset Date Last Indicated Resolved Time CoV-Presumed 09/04/2022 09/04/2022 09/25/2022 1:22 AM EST COVID-19 08/17/2024 08/17/2024 09/07/2024 1:21 AM EST Assessment Noted Time PHQ-2 Depression Total Score: 2 07/31/20 9:38 AM EST documented as of this encounter Care Teams Multi Operation Forming Machine Setter Relationship Specialty Start Date End Date Kajal Durán NP [address] [place] [address] [email or web address] PCP - General Internal Medicine 12/25/21 Kishor Ventura MD 14 [facility] [address] [place] [address] [email or web address] Insurance Assigned Provider Internal Medicine 03/18/19 Kishor Ventura MD [address] [place] [address] [place] [address] [email or web address] Insurance Assigned Provider Internal Medicine 12/25/21 Philipp Almonte MBBS [address] [place] [address] [email or web address] Internal Medicine 02/10/25 Valeri López RN [address] [place] [address] [email or web address] Registered Nurse 03/15/25 documented as of this encounter Additional Source Comments The information contained in this document represents components of the legal health record. It is not the complete legal health record.[facility]
--- OUTSIDE RECORDS SUMMARY | 2025-04-27 11:42 | XMS_ITS | Encounter Summary ---
Author Organization [facility] Address [address] [place] [address] Phone Care Team Providers Care Data Designer Name Role Phone Stefania Barton CNP Primary Care Provider + Swathi Delgado MD Primary Care Provider Kajal Durán CLAY TEMPERER Primary Care Provider Kishor Ventura MD Primary Care Provider [phone] Kajal Durán NP Primary Care Provider Kishor Ventura MD Unavailable [phone] Kishor Ventura MD Primary Care Provider [phone] Kajal Durán NP Primary Care Provider Kishor Ventura MD Primary Care Provider [phone] Kajal Durán NP Primary Care Provider Kishor Ventura MD Unavailable [phone] Philipp Almonte Unavailable [phone] Valeri López RN Unavailable [phone] Encounter Details Date Type Department Care Team (Late st Contact Info) Description 12/02/2017 Ancillary Orders [facility], X-Ray - [address] [id number] Stefania Barton CNP [address] [place] [address] [email or web address] Night sweats Social History Tobacco Use Types Packs/Day Years [...] Info) Description 04/28/2025 10:15 AM EDT Appointment [facility], [address] [address] Kajal Durán NP [address] [place] [address] 05/10/2025 9:20 AM EDT Office Visit [facility] Clinic [address] [place] [address] Kajal Durán NP [address] [place] [address] 05/10/2025 10:00 AM EDT Office Visit [facility] at [address] [address] Philipp Almonte MBBS [address] [place] [address] [email or web address] 11/02/2025 9:10 AM EST Office Visit [facility] [place] [facility] [address] [place] [address] Kajal Durán NP [address] [place] [address] [email or web address] documented as of this encounter Results * XR CHEST PA AND LATERAL 2 VIEWS (12/02/2017 4:30 PM EDT) Anatomical Region Laterality Modality Chest Radiographic Radha ging 12/02/2017 4:52 PM EDT Impressions 12/02/2017 5:00 PM EDT No acute cardiopulmonary abnormality detected on radiography. POS - [id number] Edited by: Carolyn Mclaughlin on 12/02/2017 4:58 PM Narrative 12/02/2017 5:00 PM EDT PA and lateral views of the chest obtained and compared to prior 04/07/2015, the only available. Comparison is also made to images from chest CT 06/12/2017. No infiltrates or effusions are identified. Lung volumes upper normal. No mediastinal contour change of concern. No free air or pneumothorax. No signs of congestive failure. There is spurring and kyphosis in the thoracic spine and some scoliosis suggested in the visualized upper lumbar spine. Small parenchymal densities seen on CT are not radiographically apparent. Procedure Note Ming Taveras MD - 12/02/2017 PA and lateral views of the chest obtained and compared to prior04/07/2015, the only available. Comparison is also made to images fromchest CT 06/12/2017. No infiltrates or effusions are identified. Lungvolumes upper normal. No mediastinal contour change of concern. No freeair or pneumothorax. No signs of congestive failure. There is spurring andkyphosis in the thoracic spine and some scoliosis suggested in thevisualized upper lumbar spine. Small parenchymal densities seen on CT arenot radiographically apparent. IMPRESSION: No acute cardiopulmonary abnormality detected on radiography. POS - [id number] Edited by: Carolyn Mclaughlin on 12/02/2017 4:58 PM Stefania Barton PRIVATE DETECTIVE IMG XR CHEST Final Re sult documented in this encounter Visit Diagnoses Diagnosis Night sweats Generalized hyperhidrosis Night sweats Generalized hyperhidrosis documented in this encounter Additional Health Concerns [...] documented as of this encounter Care Teams Data Designer Relationship Specialty Start Date End Date Stefania Barton CNP [address] [place] [address] [email or web address] PCP - General 08/01/17 01/01/18 Swathi Delgado MD [address] [place] [address] [email or web address] PCP - General Family Medicine 01/02/18 12/30/18 Kajal Durán NP [address] [place] [address] [place] [address] [email or web address] PCP - General Internal Medicine 12/31/18 02/11/19 Kishor Ventura MD [address] [place] [address] [place] [address] [email or web address] PCP - General Internal Medicine 02/12/19 03/17/19 Kajal Durán NP [address] [place] [address] [email or web address] PCP - General Internal Medicine 03/18/19 06/15/19 Kishor Ventura MD [address] [place] [address] [email or web address] PCP - General Internal Medicine 06/16/19 09/20/19 Kajal Durán NP [address] [place] [address] [email or web address] PCP - General Internal Medicine 09/21/19 09/04/21 Kishor Ventura MD [address] [place] [address] [email or web address] PCP - General Internal Medicine 09/05/21 12/24/21 Kajal Durán NP [address] [place] [address] [email or web address] PCP - General Internal Medicine 12/25/21 Kishor Ventura MD [address] [place] [address] [email or web address] Insurance Assigned Provider Internal Medicine 03/18/19 Kishor Ventura MD [address] [place] [address] [email or web address] Insurance Assigned Provider Internal Medicine 12/25/21 Philipp Almonte MBBS 30 [place] [address] [email or web address] Internal Medicine 02/10/25 Valeri López RN 30 [place] [address] [email or web address] Registered Nurse 03/15/25 documented as of this encounter Additional Source Comments The information contained in this document represents components of the legal health record. It is not the complete legal health record.[facility]
--- OUTSIDE RECORDS SUMMARY | 2025-04-27 11:43 | XMS_ITS | Encounter Summary ---
Author Organization [facility] Address [address] [place] [address] Phone Care Team Providers Care Extractor Plant Operator Name Role Phone Kishor Ventura MD Unavailable [phone] Kajal Durán NP Primary Care Provider + [phone] Kishor Ventura MD Primary Care Provider [phone] Kajal Durán NP Primary Care Provider + [phone] Kishor Ventura MD Unavailable [phone] Philipp Almonte MBBS Unavailable [phone] Valeri López RN Unavailable [phone] Encounter Details Date Type Department Care Team (Late st Contact Info) Description 07/13/2021 Procedure Pass [facility], [address] [address] Social History Tobacco Use Types Packs/Day Years [...] Info) Description 04/28/2025 10:15 AM EDT Appointment [facility], Bone Density - [address] [address] Kajal Durán NP [address] [address] 05/10/2025 9:20 AM EDT Office Visit [facility] Clinic [address] [place] [address] Kajal Durán NP [address] [address] 05/10/2025 10:00 AM EDT Office Visit [facility] at [address] [address] Philipp Almonte MBBS [address] [place] [address] [email or web address] 11/02/2025 9:10 AM EST Office Visit [facility] [place] Internal Medicine [address] [address] Kajal Durán NP [address] [address] documented as of this encounter Visit Diagnoses [...] documented as of this encounter Care Teams Extractor Plant Operator Relationship Specialty Start Date End Date Kajal uDrán NP [address] [place] [address] PCP - General Internal Medicine 09/21/19 09/04/21 Kishor Ventura MD [address] [place] [address] PCP - General Internal Medicine 09/05/21 12/24/21 Kajal Durán NP [address] [place] [address] [email or web address] PCP - General Internal Medicine 12/25/21 Kishor Ventura MD [address] [place] [phone] Insurance Assigned Provider Internal Medicine 03/18/19 Kishor Ventura MD [address] [place] [address] Insurance Assigned Provider Internal Medicine 12/25/21 Philipp Almonte MBBS [address] [place] [address] [email or web address] Internal Medicine 02/10/25 Valeri López, RN 30 [place], [place] [phone] Registered Nurse 03/15/25 documented as of this encounter Additional Source Comments The information contained in this document represents components of the legal health record. It is not the complete legal health record.[facility]
--- OUTSIDE RECORDS SUMMARY | 2025-04-27 11:43 | XMS_ITS | Clinical Summary ---
Author Organization [facility] Address [address] [place] [address] Care Team Providers Care Historic Interpreter Name Role Phone Swathi Delgado MD Primary Care Provider [phone] Allergies Active Allergy Reactions Criticality Noted Date [...] 60 06/21/2014 9:44 AM EDT Temperature 36.7 C (98 F) 06/21/2014 9:44 AM EDT Respiratory Rate 14 [...] - 2023-2 5 season) 2024 Influenza (#1) 2025 HPV Vaccine (No Doses Required) Completed Hep A Aged Out No longer eligi [...] Pap Smear Discontinued Zoster (Zostavax) Discontinued Insurance [address] [place], [place] [address]S MEDICARE PREFERRED HMO Care Teams Historic Interpreter Relationship Specialty Start Date End Date Swathi Delgado MD [address] [place] [address] PCP - General Family Medicine 01/05/14
--- OUTSIDE RECORDS SUMMARY | 2025-04-27 11:43 | XMS_ITS | Encounter Summary ---
Author Organization [facility] Address [address] [place] [address] Phone Care Team Providers Care Dinkey Operator Name Role Phone Kishor Ventura MD Unavailable [phone] Kajal Durán NP Primary Care Provider + [phone] Kishor Ventura MD Unavailable [phone] Philipp Almonte Unavailable [phone] Valeri López RN Unavailable [phone] Encounter Details Date Type Department Care Team (Late st Contact Info) Description 10/08/2022 Nurse Triage [facility] Internal Medicine 14 [facility] [address] [place] [address] Kajal Durán, ANGELLA 14 [facility] [address] [place] [address] [phone] [email or web address] Social History Tobacco Use Types Packs/Day Years [...] as of this encounter Progress Notes * Genesis Berg RN - 10/09/2022 12:07 PM EST Call made to patient to review She states that she has had upper back pain for about 1 month It has worsened over the last 1-2 days Sometimes severe in waves, catches her breath No radiation down arms or down legs Denies any chest pain, SOB or elevated HR She states that she has been more active stacking and moving wood She does have tenderness to touch She has not been taking any OTC medications Reason for Disposition Age > 50 and no history of prior similar back pain Answer Assessment - Initial Assessment Questions 1. ONSET: When did the pain begin? About 1 month ago but worsened over the last 1-2 days 2. LOCATION: Where does it hurt? (upper, mid or lower back) Between should blades, feels slightly worse to the right but mostly right in the middle 3. SEVERITY: How bad is the pain? (e.g., Scale 1-10; mild, moderate, or severe) - MILD (1-3): doesn't interfere with normal activities - MODERATE (4-7): interferes with normal activities or awakens from sleep - SEVERE (8-10): excruciating pain, unable to do any normal activities Can be severe at times, feels that it catches and takes her breath away 4. PATTERN: Is the pain constant? (e.g., yes, no; constant, intermittent) Pain is constant but worsens in waves 5. RADIATION: Does the pain shoot into your legs or elsewhere? No 6. CAUSE: What do you think is causing the back pain? She has been more active stacking and moving wood recently 7. BACK OVERUSE: Any recent lifting of heavy objects, strenuous work or exercise? Yes 8. MEDICATIONS: What have you taken so far for the pain? (e.g., nothing, acetaminophen, NSAIDS) Has not been taking any over the counter medications 9. NEUROLOGIC SYMPTOMS: Do you have any weakness, numbness, or problems with bowel/bladder control? No 10. OTHER SYMPTOMS: Do you have any other symptoms? (e.g., fever, abdominal pain, burning with urination, blood in urine) No Protocols used: BACK [id number] * Suzanne Hayes MA - 10/09/2022 11:30 AM EST Patient called back with pain between shoulders x1 month. Does not think it's heart related. 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 documented in this encounter Plan of Treatment Upcoming Encounters Date Type Department Care Team (Late st Contact Info) Description 04/28/2025 10:15 AM EDT Appointment [facility], [address] [address] Kajal Durán NP [address] [address] 05/10/2025 9:20 AM EDT Office Visit [facility] Clinic [address] [place] [address] Kjaal Durán NP [address] [address] 05/10/2025 10:00 AM EDT Office Visit [facility] at [address] [address] Philipp Almonte MBBS [address] [place] [address] [email or web address] 11/02/2025 9:10 AM EST Office Visit [facility] [place] Internal Medicine 14 [facility] [address] [place] [address] Kajal Durán NP [address] [address] documented as of this encounter Results * XR THORACIC SPINE 3 VIEW (10/11/2022 11:22 AM EST) Anatomical Region Laterality Modality T-spine Computed Radiogr aphy 10/11/2022 10:2 3 PM EST Impressions 10/11/2022 10:25 PM EST Exaggeration of the thoracic kyphosis secondary to multilevel disc height loss with endplate sclerosis and marginal osteophytes. No definite compression fracture. Narrative 10/11/2022 10:25 PM EST XR THORACIC SPINE 3 VIEW COMPARISON: CT ANGIO CHEST WITH CONTRAST FINDINGS: ALIGNMENT: Exaggeration of thoracic kyphosis. VERTEBRAE: Vertebral body heights preserved. DISCS: Endplate sclerosis and marginal osteophytes at all levels. FACETS: Arthropathy at the cervicothoracic junction. PARASPINAL SOFT TISSUES: Borderline cardiomegaly. Aortic arch calcification. Procedure Note Massiel Bonilla MD - 10/11/2022 XR THORACIC SPINE 3 VIEW COMPARISON: CT ANGIO CHEST WITH CONTRAST FINDINGS: ALIGNMENT: Exaggeration of thoracic kyphosis. VERTEBRAE: Vertebral body heights preserved. DISCS: Endplate sclerosis and marginal osteophytes at all levels. FACETS: Arthropathy at the cervicothoracic junction. PARASPINAL SOFT TISSUES: Borderline cardiomegaly. Aortic archcalcification. IMPRESSION: Exaggeration of the thoracic kyphosis secondary to multilevel disc heightloss with endplate sclerosis and marginal osteophytes. No definitecompression fracture. Kajal Durán NP IMG XR SPINE Final Resu lt documented in this encounter Visit Diagnoses Diagnosis Thoracic back pain- Primary Pain in thoracic spine Thoracic back pain Pain in thoracic spine documented in this encounter Additional Health Concerns Infection Onset Date Last Indicated Resolved Time COVID-19 08/17/2024 08/17/2024 09/07/2024 1:21 AM EST Assessment Noted Time PHQ-2 Depression Total Score: 2 07/31/20 22 9:38 AM EST documented as of this encounter Care Teams Dinkey Operator Relationship Specialty Start Date End Date Kajal Durán NP [address] [place] [address] [place] [address] [email or web address] PCP - General Internal Medicine 12/25/21 Kishor Ventura MD [address] [place] [address] [email or web address] Insurance Assigned Provider Internal Medicine 03/18/19 Kishor Ventura MD [address] [place] [address] [email or web address] Insurance Assigned Provider Internal Medicine 12/25/21 Philipp Almonte MBBS [address] [place] [address] [email or web address] Internal Medicine 02/10/25 Valeri López, RN [address] [place] [address] [email or web address] Registered Nurse 03/15/25 documented as of this encounter Additional Source Comments The information contained in this document represents components of the legal health record. It is not the complete legal health record.[facility]
--- OUTSIDE RECORDS SUMMARY | 2025-04-27 11:43 | XMS_ITS | Encounter Summary ---
Author Organization [facility] Address [address] [place] [address] Care Team Providers Care Clay Digger Name Role Phone Swathi Delgado MD Primary Care Provider [phone] Encounter Details Date Type Department Care Team ([facility] st Contact Info) Description 11/08/2016 Telephone [facility] Orthopedic Surgery [address] [address] Brayan Russo MD [address] [place] [address] Social History Tobacco Use Types Packs/Day Years [...] on filedocumented in this encounter Care Teams Clay Digger Relationship Specialty Start Date End Date Swathi Delgado MD [address] [phone] PCP - General Family Medicine 01/05/14 documented as of this encounter
--- OUTSIDE RECORDS SUMMARY | 2025-04-27 11:43 | XMS_ITS | Encounter Summary ---
Author Organization [facility] Address [address] [place] [address] Care Team Providers Care Speech Pathology Supervisor Name Role Phone Swathi Delgado MD Primary Care Provider [phone] Encounter Details Date Type Department Care Team [...] Primary Home: [address] Contact info [address] [place] [address] Patient IDs [id number] [place]??[address] Document Id [id number] Document Created July 22, 2014, 02:10:17, EST Performer Physician Non Staff of [facility] Author [employer] [facility] Contact info residential caregiver Brayan Russo [address] Contact info [place],??[place]??[address] Telecom information not available residential caregiver Physician Non Staff Contact info Telecom information not available residential caregiver UNKNOWN Contact info Telecom information not available Next of kin WILBER FRITZ [address] Contact info [address] [place] [address],??[place]??[address] Telecom information not available Document maintained by [facility] Contact info ----- Table of Contents ----- * Insurance_Providers * Advance_Directives * Problems * Social_History * Plan_of_Care * Functional_Status * Allergies,_Adverse_Reactions,_Alerts * Medications * Vital_Signs * Results * Encounters ---- Insurance_Providers ---- Payer Name Policy Number Subscriber Name Relationship [employer] PREFERRED [id number] STEPHANIE FRITZ SELF ---- Advance_Directives ---- Directive [...] 07/19/14 6:59am 5 Weight kgs 07/19/14 6:59am [id number] Weight lbs 07/19/14 6:59am 199 Body Mass [...] Encounters ---- Encounter Location Date/Time Discharged Inpatient [facility] 07/21/14 2:28pm Recent Diagnosis Osteoarthritis of right knee documented in this encounter Plan of Treatment Not on file documented as of this encounter Visit Diagnoses Not on filedocumented in this encounter Care Teams Speech Pathology Supervisor Relationship Specialty Start Date End Date Swathi Delgado MD [address] [address] PCP - General Family Medicine 01/05/14 documented as of this encounter
--- OUTSIDE RECORDS SUMMARY | 2025-04-27 11:43 | XMS_ITS | Encounter Summary ---
Author Organization [facility] Address [address] [place] [address] Phone Care Team Providers Care Entry Level Mechanical Engineer Name Role Phone Kishor Ventura MD Unavailable [phone] Kajal Durán NP Primary Care Provider + [phone] Kishor Ventura MD Unavailable [phone] Philipp Almonte MBBS Unavailable [phone] Valeri López RN Unavailable [phone] Reason for Referral * Outpatient Procedure - Closed Specialty Diagnoses / Procedures Referred By Yumiko winters Referred To Contact Radiology Diagnoses Essential hypertension Procedures US Renal Artery/ Veins Duplex Eden Cheney MD Phone: tel: fax: [email or web address] Referral ID Status Reason Start Date Expiration Date Visits Re quested Visits Authorized [id number] Closed 02/05/2022 02/05/2023 1 1 Encounter Details Date Type Department Care Team (Latest Contact Info) Description 02/05/2022 Transcribe Orders Virtual Department [address] [place] [address] Eden Cheney MD 51 [facility], [address] [place] [address] [email or web address] Essential hypertension (Primary Dx) Social History Tobacco Use Types [...] Info) Description 04/28/2025 10:15 AM EDT Appointment [facility], [address] [address] Kajal Durán NP [address] [place] [address] 05/10/2025 9:20 AM EDT Office Visit [facility]ticoagulation Clinic [address] [place] [address] Kajal Durán NP [address] [place] [address] 05/10/2025 10:00 AM EDT Office Visit [facility] at [address] [address] Philipp Almonte MBBS [address] [place] [address] [email or web address] 11/02/2025 9:10 AM EST Office Visit [facility] [place] Internal Medicine [address] [place] [address] Kajal Durán NP [address] [place] [address] [email or web address] documented as of this encounter Results * US RENAL ARTERIES AND VEINS DUPLEX COMPLETE (02/16/2022 8:16 AM EDT) Anatomical Region Laterality Modality Abdominal Vasculature Ultrasound 02/16/2022 2:09 PM EDT Narrative 02/16/2022 2:15 PM EDT RENAL ARTERY DUPLEX History: Hypertension COMPARISON: Renal sonography 02/12/2019 TECHNIQUE: A duplex ultrasound evaluation of the renal arteries/veins was performed using mendoza scale, color duplex and spectral Doppler analysis. Velocity (cm/s) Aorta: 104 RIGHT RENAL ARTERY (cm/s) Proximal: 117 Mid: 105 Distal: 111 RIGHT PARENCHYMA Resistance Index (RI): Upper Pole: 0.8 Mid: 0.7 Lower Pole: 0.7 Right kidney size: 9.8 cm. There is normal corticomedullary differentiation and cortical thickness. No calculus. No hydronephrosis. No focal renal lesion demonstrated. LEFT RENAL ARTERY (cm/s) Proximal: 88.7 Mid: 102 Distal: 191 LEFT PARENCHYMA Resistance Index (RI): Upper Pole: 0.7 Mid: 0.8 Lower Pole: 0.7 Left kidney size: 10.2 cm. There is normal corticomedullary differentiation and cortical thickness. No calculus. No hydronephrosis. No focal renal lesion demonstrated. IMPRESSIONS: * No sonographic evidence of renal artery stenosis bilaterally. Procedure Note Rubi Duckworth MD - 02/16/2022 RENAL ARTERY DUPLEX History: Hypertension COMPARISON: Renal sonography 02/12/2019 TECHNIQUE: A duplex ultrasound evaluation of the renal arteries/veins was performedusing mendoza scale, color duplex and spectral Doppler analysis. Velocity (cm/s) Aorta: 104 RIGHT RENAL ARTERY (cm/s) Proximal: 117 Mid: 105 Distal: 111 RIGHT PARENCHYMA Resistance Index (RI): Upper Pole: 0.8 Mid: 0.7 Lower Pole: 0.7 Right kidney size: 9.8 cm. There is normal corticomedullarydifferentiation and cortical thickness. No calculus. No hydronephrosis. Nofocal renal lesion demonstrated. LEFT RENAL ARTERY (cm/s) Proximal: 88.7 Mid: 102 Distal: 191 LEFT PARENCHYMA Resistance Index (RI): Upper Pole: 0.7 Mid: 0.8 Lower Pole: 0.7 Left kidney size: 10.2 cm. There is normal corticomedullarydifferentiation and cortical thickness. No calculus. No hydronephrosis. Nofocal renal lesion demonstrated. IMPRESSIONS: * No sonographic evidence of renal artery stenosis bilaterally. us Eden Cheney MD IMG US ABDOMEN Final Result documented in this encounter Visit Diagnoses Diagnosis Essential hypertension- Primary Unspecified essential hypertension Essential hypertension Unspecified essential hypertension documented in this encounter Additional Health Concerns Infection Onset Date Last Indicated Resolved Time CoV-Presumed 09/04/2022 09/04/2022 09/25/2022 1:22 AM EST COVID-19 08/17/2024 08/17/2024 09/07/2024 1:21 AM EST Assessment Noted Time PHQ-2 Depression Total Score: 2 08/06/20 20 10:40 AM EST documented as of this encounter Care Teams Entry Level Mechanical Engineer Relationship Specialty Start Date End Date Kajal Durán NP [address] [place] [address] [place] [address] [email or web address] PCP - General Internal Medicine 12/25/21 Kishor Ventura MD [address] [place] [address] [place] [address] [email or web address] Insurance Assigned Provider Internal Medicine 03/18/19 Kishor Ventura MD [address] [place] [address] [place] [address] [email or web address] Insurance Assigned Provider Internal Medicine 12/25/21 Philipp Almonte MBBS [address] [place] [address] [email or web address] Internal Medicine 02/10/25 Valeri López RN [address] [place] [address] Registered Nurse 03/15/25 documented as of this encounter Additional Source Comments The information contained in this document represents components of the legal health record. It is not the complete legal health record.[facility]
--- OUTSIDE RECORDS SUMMARY | 2025-04-27 11:43 | XMS_ITS | Encounter Summary ---
Author Organization [facility] Address [address] [place], [place] [phone] Phone Care Team Providers Care Inside Sales Territory Manager Name Role Phone Kishor Ventura MD Unavailable [phone] Kishor Ventura MD Primary Care Provider [phone] Kajal Durán CAT SWAMPER Primary Care Provider + [phone] Kishor Ventura MD Primary Care Provider [phone] Kajal Durán CAT SWAMPER Primary Care Provider Kishor Ventura MD Unavailable [phone] Philipp Almonte Unavailable [phone] Valeri López RN Unavailable [phone] Encounter Details Date Type Department Care Team (Late st Contact Info) Description 09/14/2019 Procedure Pass [place] Admitting Dept - Virtual Department [address] [place] [address] Social History Tobacco Use Types Packs/Day Years [...] 10:15 AM EDT Appointment [facility] - [address] [address] Kajal Durán NP 14 [facility] [address] [place] [address] 05/10/2025 9:20 AM EDT Office Visit Anticoagulation Clinic [address] [place] [address] Kajal Durán NP [address] [address] 05/10/2025 10:00 AM EDT Office Visit [facility] at [address] [address] Philipp Almonte MBBS [address] [place] [address] [email or web address] 11/02/2025 9:10 AM EST Office Visit [facility] [place] Internal Medicine [address] [address] Kajal Durán NP [address] [address] documented as of this encounter Visit Diagnoses [...] documented as of this encounter Care Teams Inside Sales Territory Manager Relationship Specialty Start Date End Date Kishor Ventura MD 14 [facility] [address] [place] [address] [email or web address] PCP - General Internal Medicine 06/16/19 09/20/19 Kajal Durán NP [address] [place] [address] [place] [address] [email or web address] PCP - General Internal Medicine 09/21/19 09/04/21 Kishor Ventura MD 14 [facility] [address] [place] [address] [email or web address] PCP - General Internal Medicine 09/05/21 12/24/21 Kajal Durán NP [address] [place] [address] [email or web address] PCP - General Internal Medicine 12/25/21 Kishor Ventura MD [address] [place] [address] [email or web address] Insurance Assigned Provider Internal Medicine 03/18/19 Kishor Ventura MD 14 [facility] [address] [place] [address] [email or web address] Insurance Assigned Provider Internal Medicine 12/25/21 Philipp Almonte MBBS [address] [place] [phone] [email or web address] Internal Medicine 02/10/25 Valeri López RN [address] [place] [phone] [email or web address] Registered Nurse 03/15/25 documented as of this encounter Additional Source Comments The information contained in this document represents components of the legal health record. It is not the complete legal health record.[facility]
--- OUTSIDE RECORDS SUMMARY | 2025-04-27 11:43 | XMS_ITS | Encounter Summary ---
Author Organization [facility] Address [address] [place] [address] Phone Care Team Providers Care Galvanizer Zinc Name Role Phone Kishor Ventura MD Unavailable [phone] Kajal Durán NP Primary Care Provider Kishor Ventura MD Primary Care Provider [phone] Kajal Durán NP Primary Care Provider + [phone] Kishor Ventura MD Unavailable Philipp Almonte MBBS Unavailable [phone] Valeri López RN Unavailable [phone] Encounter Details Date Type Department Care Team (Late st Contact Info) Description 06/16/2021 Procedure Pass [facility] [address] [place] [address] Social History Tobacco Use Types Packs/Day Years [...] Info) Description 04/28/2025 10:15 AM EDT Appointment [facility] - [address] [address] Kajal Durán NP 14 [facility] [address] [place] [address] 05/10/2025 9:20 AM EDT Office Visit Anticoagulation Clinic [address] [place] [address] Kajal Durán NP [address] [address] 05/10/2025 10:00 AM EDT Office Visit [facility] at [address] [address] Philipp Almonte MBBS [address] [place] [address] [email or web address] 11/02/2025 9:10 AM EST Office Visit [facility] [place] Internal Medicine [address] [address] Kajal Durán NP [address] [address] documented as of this encounter Visit Diagnoses [...] documented as of this encounter Care Teams Galvanizer Zinc Relationship Specialty Start Date End Date Kajal Durán NP [address] [place] [address] [email or web address] PCP - General Internal Medicine 09/21/19 09/04/21 Kishor Ventura MD [address] [place] [address] [email or web address] PCP - General Internal Medicine 09/05/21 12/24/21 Kajal Durán NP [address] [place] [address] [email or web address] PCP - General Internal Medicine 12/25/21 Kishor Ventura MD [address] [place] [address] [email or web address] Insurance Assigned Provider Internal Medicine 03/18/19 Kishor Ventura MD [address] [place] [address] [email or web address] Insurance Assigned Provider Internal Medicine 12/25/21 Philipp Almonte MBBS [address] [place] [address] [email or web address] Internal Medicine 02/10/25 Valeri López RN [address] [place] [address] [email or web address] Registered Nurse 03/15/25 documented as of this encounter Additional Source Comments The information contained in this document represents components of the legal health record. It is not the complete legal health record.[facility]
--- OUTSIDE RECORDS SUMMARY | 2025-04-27 11:43 | XMS_ITS | Encounter Summary ---
Author Organization [facility] Address [address] [place] [address] Phone Care Team Providers Care Mobile Home Lot Utility Worker Name Role Phone Kishor Ventura MD Unavailable +[phone] Kajal Durán NP Primary Care Provider + [phone] Kishor Ventura MD Primary Care Provider +[phone] Kajal Durán NP Primary Care Provider + [phone] Kishor Ventura MD Unavailable +[phone] Philipp Almonte MBASHLIE Unavailable +[phone] Valeri López RN Unavailable +[phone] Encounter Details Date Type Department Care Team (Late st Contact Info) Description 07/28/2021 Ancillary Orders [facility],Outside Imaging [address] [place], [place] [id number] System, Provider [place] In, [place] [address] Social History Tobacco Use Types Packs/Day Years [...] Info) Description 04/28/2025 10:15 AM EDT Appointment [facility], [facility] - [address] [address] Kajal Durán NP 14 [facility] [address] [place] [address] 05/10/2025 9:20 AM EDT Office Visit [facility] [address] [place] [address] Kajal Durán NP [address] [address] 05/10/2025 10:00 AM EDT Office Visit [facility] at [address] [address] Philipp Almonte MBBS [address] [place] [address] [email or web address] 11/02/2025 9:10 AM EST Office Visit [facility] [place] [facility] [address] [address] Kajal Durán NP [address] [address] documented as of this encounter Results * CT Head Outside (No Interpretation) (01/13/2021 12:05 AM EDT) Narrative SYSTEMGENERATED, DOCUMENTATION - 07/28/2021 9:04 AM EST This study is for PACS storage only and not for interpretation. us Provider Not In System PhD IMG OUTSIDE IMAGING W /OUT INTERPRETATION Final Result * CT Head Outside (No Interpretation) (01/13/2021 12:00 AM EDT) Narrative SYSTEMGENERATED, DOCUMENTATION - 07/28/2021 9:03 AM EST This study is for PACS storage only and not for interpretation. us Provider Not In System PhD IMG OUTSIDE IMAGING W /OUT INTERPRETATION Final Result documented in this encounter Visit Diagnoses Not [...] documented as of this encounter Care Teams Mobile Home Lot Utility Worker Relationship Specialty Start Date End Date Kajal Durán NP [address] [place] [address] [email or web address] PCP - General Internal Medicine 09/21/19 09/04/21 Kishor Ventura MD [address] [place] [address] [place] [address] [email or web address] PCP - General Internal Medicine 09/05/21 12/24/21 Kajal Durán NP [address] [place] [address] [place] [address] [email or web address] PCP - General Internal Medicine 12/25/21 Kishor Ventura MD [address] [place] [address] [email or web address] Insurance Assigned Provider Internal Medicine 03/18/19 Kishor Ventura MD [address] [place] [address] [email or web address] Insurance Assigned Provider Internal Medicine 12/25/21 Philipp Almonte MBBS [address] [place] [address] [email or web address] Internal Medicine 02/10/25 Valeri López, RN [address] [place] [address] [email or web address] Registered Nurse 03/15/25 documented as of this encounter Additional Source Comments The information contained in this document represents components of the legal health record. It is not the complete legal health record.[facility]
--- OUTSIDE RECORDS SUMMARY | 2025-04-27 11:43 | XMS_ITS | Encounter Summary ---
Author Organization [facility] Address [address] [place] [address] Phone Care Team Providers Care Underwriting Account Representative Name Role Phone Kishor Ventura MD Unavailable +[phone] Kajal Durán NP Primary Care Provider + [phone] Kishor Ventura MD Primary Care Provider [phone] Kajal Durán NP Primary Care Provider + [phone] Kishro Ventura MD Unavailable +[phone] Philipp Almonte MBBS Unavailable +[phone] Valeri López RN Unavailable +[phone] Encounter Details Date Type Department Care Team (Late st Contact Info) Description 07/13/2021 Procedure Pass [facility], [address] [address] Social History Tobacco Use Types Packs/Day Years [...] Info) Description 04/28/2025 10:15 AM EDT Appointment [facility], [facility] - [address] [address] Kajal Durán NP [address] [address] 05/10/2025 9:20 AM EDT Office Visit Anticoagulation Clinic [address] [place] [address] Kajal Durán NP [address] [address] 05/10/2025 10:00 AM EDT Office Visit [facility] at [address] [address] Philipp Almonte MBBS [address] [place] [address] [email or web address] 11/02/2025 9:10 AM EST Office Visit [facility] [place] [facility] [address] [address] Kajal Durán NP [address] [address] documented as of this encounter Visit Diagnoses [...] documented as of this encounter Care Teams Underwriting Account Representative Relationship Specialty Start Date End Date Kajal Durán NP [address] [place] [address] [email or web address] PCP - General Internal Medicine 09/21/19 09/04/21 Kishor Ventura MD [address] [place] [address] [email or web address] PCP - General Internal Medicine 09/05/21 12/24/21 Kajal Durán NP [address] [place] [address] [email or web address] PCP - General Internal Medicine 12/25/21 Kishor Ventura MD [address] [place] [address] [email or web address] Insurance Assigned Provider Internal Medicine 03/18/19 Kishor Ventura MD [address] [place] [address] [email or web address] Insurance Assigned Provider Internal Medicine 12/25/21 Philipp Almonte MBBS [address] [place] [address] [email or web address] Internal Medicine 02/10/25 Valeri López, RN [address] [place], [place] [phone] Registered Nurse 03/15/25 documented as of this encounter Additional Source Comments The information contained in this document represents components of the legal health record. It is not the complete legal health record.[facility]
--- OUTSIDE RECORDS SUMMARY | 2025-04-27 11:43 | XMS_ITS | Encounter Summary ---
Author Organization [facility] Address [address] [place], [place] [id number] Phone Care Team Providers Care Neurodiagnostic Technologist Name Role Phone Kishor Ventura MD Unavailable [phone] Kishor Ventura MD Primary Care Provider Kajal Durán [employer] Primary Care Provider + [phone] Kishor Ventura MD Primary Care Provider [phone] Kajal Durán [employer] Primary Care Provider Kishor Ventura MD Unavailable +[phone] Philipp Almonte Unavailable +[phone] Valeri López RN Unavailable +[phone] Encounter Details Date Type Department Care Team (Late st Contact Info) Description 09/07/2019 Procedure Pass [place] Admitting Dept - Virtual Department [address] [place] [address] Social History Tobacco Use Types Packs/Day Years [...] Info) Description 04/28/2025 10:15 AM EDT Appointment [facility], [facility] - [address] [address] Kajal Durán NP 14 [facility] [address] [place] [address] 05/10/2025 9:20 AM EDT Office Visit Anticoagulation Clinic [address] [place] [address] Kajal Durán NP [address] [address] 05/10/2025 10:00 AM EDT Office Visit [facility] at [address] [address] Philipp Almonte MBBS [address] [place] [address] [email or web address] 11/02/2025 9:10 AM EST Office Visit [facility] [place] [facility] [address] [address] Kajal Durán NP [address] [address] documented as of this encounter Visit Diagnoses [...] documented as of this encounter Care Teams Neurodiagnostic Technologist Relationship Specialty Start Date End Date Kishor Ventura MD 14 [facility] [address] [place] [address] [email or web address] PCP - General Internal Medicine 06/16/19 09/20/19 Kajal Durán NP [address] [place] [address] [place] [address] [email or web address] PCP - General Internal Medicine 09/21/19 09/04/21 Kishor Ventura MD 14 [facility] [address] [place] [address] [email or web address] PCP - General Internal Medicine 09/05/21 12/24/21 Kajal Durán NP [address] [place] [address] [email or web address] PCP - General Internal Medicine 12/25/21 Kishor Ventura MD [address] [place] [address] [email or web address] Insurance Assigned Provider Internal Medicine 03/18/19 Kishor Ventura MD 14 [facility] [address] [place] [address] [email or web address] Insurance Assigned Provider Internal Medicine 12/25/21 Philipp Almonte MBBS [address] [place] [address] [email or web address] Internal Medicine 02/10/25 Valeri López RN [address] [place] [address] [email or web address] Registered Nurse 03/15/25 documented as of this encounter Additional Source Comments The information contained in this document represents components of the legal health record. It is not the complete legal health record.[facility]
--- OUTSIDE RECORDS SUMMARY | 2025-04-27 11:43 | XMS_ITS | Encounter Summary ---
Author Organization [facility] Address [address] [place] [address] Phone Care Team Providers Care House Painter Helper Name Role Phone Kishor Ventura MD Unavailable [phone] Kajal Durán NP Primary Care Provider + [phone] Kishor Ventura MD Unavailable +[phone] Philipp Almonte MBBS Unavailable +[phone] Valeri López RN Unavailable +[phone] Encounter Details Date Type Department Care Team (Late st Contact Info) Description 10/10/2022 Procedure Pass [facility] [place] [address] Social History Tobacco Use Types Packs/Day Years [...] Info) Description 04/28/2025 10:15 AM EDT Appointment [facility], [address] [address] DuránKajal quiles NP [address] [address] 05/10/2025 9:20 AM EDT Office Visit [address] [address] Kajal Durán NP [address] [place] [address] 05/10/2025 10:00 AM EDT Office Visit [facility] at [address] [address] Philipp Almonte MBBS [address] [place] [address] [email or web address] 11/02/2025 9:10 AM EST Office Visit [facility] Internal Medicine [address] [place] [address] Kajal Durán NP [address] [place] [address] [email or web address] documented as of this encounter Visit Diagnoses Not on filedocumented in this encounter Additional Health Concerns Infection Onset Date Last Indicated Resolved Time COVID-19 08/17/2024 08/17/2024 09/07/2024 1:21 AM EST Assessment Noted Time PHQ-2 Depression Total Score: 2 07/31/20 22 9:38 AM EST documented as of this encounter Care Teams House Painter Helper Relationship Specialty Start Date End Date Kajal Durán NP [address] [place] [address] [email or web address] PCP - General Internal Medicine 12/25/21 Kishor Ventura MD [address] [place] [address] [email or web address] Insurance Assigned Provider Internal Medicine 03/18/19 Kishor Ventura MD [address] [place] [address] [place] [address] [email or web address] Insurance Assigned Provider Internal Medicine 12/25/21 Philipp Almonte MBBS [address] [place] [address] [email or web address] Internal Medicine 02/10/25 Valeri López RN [address] [place] [address] [email or web address] Registered Nurse 03/15/25 documented as of this encounter Additional Source Comments The information contained in this document represents components of the legal health record. It is not the complete legal health record.[facility]
--- OUTSIDE RECORDS SUMMARY | 2025-04-27 11:43 | XMS_ITS | Encounter Summary ---
Author Organization [facility] Address [address] [place] [address] Phone Care Team Providers Care Ui Application Developer Name Role Phone Kishor Ventura MD Unavailable +[phone] Kajal Durán NP Primary Care Provider + [phone] Kishor Ventura MD Primary Care Provider [phone] Kajal Durán NP Primary Care Provider + [phone] Kishor Ventura MD Unavailable +[phone] Philipp Almonte MBBS Unavailable +[phone] Valeri López RN Unavailable +[phone] Encounter Details Date Type Department Care Team (Late st Contact Info) Description 07/13/2021 Procedure Pass [facility], [address] [address] Social History Tobacco Use Types Packs/Day Years [...] Info) Description 04/28/2025 10:15 AM EDT Appointment [facility], [facility] - [address] [address] Kajal Durán NP [address] [address] 05/10/2025 9:20 AM EDT Office Visit Anticoagulation Clinic [address] [place] [address] Kajal Durán NP [address] [address] 05/10/2025 10:00 AM EDT Office Visit [facility] at [address] [address] Philipp Almonte MBBS [address] [place] [address] [email or web address] 11/02/2025 9:10 AM EST Office Visit [facility] [place] [facility] [address] [address] Kajal Durán NP [address] [address] documented as of this encounter Visit Diagnoses [...] documented as of this encounter Care Teams Ui Application Developer Relationship Specialty Start Date End Date Kajal Durán NP [address] [place] [address] [email or web address] PCP - General Internal Medicine 09/21/19 09/04/21 Kishor Ventura MD [address] [place] [address] [email or web address] PCP - General Internal Medicine 09/05/21 12/24/21 Kajal Durán NP [address] [place] [address] [email or web address] PCP - General Internal Medicine 12/25/21 Kishor Ventura MD [address] [place] [address] [email or web address] Insurance Assigned Provider Internal Medicine 03/18/19 Kishor Ventura MD [address] [place] [address] [email or web address] Insurance Assigned Provider Internal Medicine 12/25/21 Philipp Almonte MBBS [address] [place] [address] [email or web address] Internal Medicine 02/10/25 Valeri López, RN 30 [place], [place] [phone] Registered Nurse 03/15/25 documented as of this encounter Additional Source Comments The information contained in this document represents components of the legal health record. It is not the complete legal health record.[facility]
--- OUTSIDE RECORDS SUMMARY | 2025-04-27 11:43 | XMS_ITS | Encounter Summary ---
Author Organization [facility] Address [address] [place], [place] [phone] Phone Care Team Providers Care Sales Account Specialist Name Role Phone Kishor Ventura MD Unavailable [phone] Kajal Durán NP Primary Care Provider + [phone] Kishor Ventura MD Primary Care Provider [phone] Kajal Durán NP Primary Care Provider + [phone] Kishor Ventura MD Unavailable +[phone] Philipp Almonte MBBS Unavailable +[phone] Valeri López RN Unavailable +[phone] Encounter Details Date Type Department Care Team (Late st Contact Info) Description 01/21/2020 Procedure Pass [facility], [address] [address] Social History Tobacco Use Types Packs/Day Years [...] Description 04/28/2025 10:15 AM EDT Appointment [facility], [facility] - [address] [address] Kajal Durán NP [address] [address] 05/10/2025 9:20 AM EDT Office Visit Anticoagulation Clinic [address] [place] [address] Kajal Durán NP [address] [address] 05/10/2025 10:00 AM EDT Office Visit [facility] at [address] [address] Philipp Almonte MBBS [address] [place] [address] [email or web address] 11/02/2025 9:10 AM EST Office Visit [facility] [place] [facility] 14 [facility] [address] [place] [address] Kajal Durán NP [address] [address] documented as of this encounter Visit Diagnoses [...] as of this encounter Care Teams Sales Account Specialist Relationship Specialty Start Date End Date Kajal Durán NP [address] [place] [address] [email or web address] PCP - General Internal Medicine 09/21/19 09/04/21 Kishor Ventura MD [address] [place] [address] [email or web address] PCP - General Internal Medicine 09/05/21 12/24/21 Kajal Durán NP [address] [place] [address] [email or web address] PCP - General Internal Medicine 12/25/21 Kishor Ventura MD [address] [place] [address] Insurance Assigned Provider Internal Medicine 03/18/19 Kishor Ventura MD [address] [place] [address] Insurance Assigned Provider Internal Medicine 12/25/21 Philipp Almonte MBBS [address] [place] [address] [email or web address] Internal Medicine 02/10/25 Valeri López, RN [address] [place] [address] [email or web address] Registered Nurse 03/15/25 documented as of this encounter Additional Source Comments The information contained in this document represents components of the legal health record. It is not the complete legal health record.[facility]
== END 2025-04-27 11:59 | disposition home or self-care (01) ==
LOC: HO.HPSW 10:51
PROVIDERS: PCP Nurse Practitioner Adult Health; Visit Provider Nurse Practitioner Family
DX: J45.909 Unspecified asthma, uncomplicated (principal); R06.09 Other forms of dyspnea; R91.8 Other nonspecific abnormal finding of lung field
CPT/HCPCS: 99214